=== PATIENT | female | born 2000 | race Caucasian/White ===

== ENCOUNTER 2023-03-26 10:29 | Emergency (ER) | payer OTHER ==
--- OUTSIDE RECORDS SUMMARY | 2023-03-26 10:36 | XMS REPORT | Continuity of Care Document ---
:2000 Author Organization [facility] t Address [address] [facility]. [address] [place] [address] Care Team Providers Name Role Phone Pcp, Patient Does Not Have A Primary Care Physician [id number] Tamika Ramos Attending Clinician Unavailable TAIWO DAVIES Attending Clinician Unavailable Juvenal Garcia Attending Clinician Unavailable Jarrett Barber MD Attending Clinician JARRETT BABRER Attending Clinician Unavailable JARRETT BARBER Attending Clinician Unavailable Doctor Unassigned, [place] Attending Clinician Unavailable GC_GCBZW_[place]_S Attending Clinician Unavailable JORGE PAUL Attending Clinician Unavailable Jean Claude West Attending Clinician GC_GCBZW_[place]_S Admitting Clinician Unavailable Jean Claude West Admitting Clinician Marry Martinez Admitting Clinician Payers Payer Name Policy Type Policy Number Effective Date Expiration Date Augustin mays CIG[employer] [id number] 2022 00:00:00 [facility] [id number] 2022 00:00:00 Problems Condition Condition Condition Status Onset Resolution Last Treating Co mments Source Name Details Category Date Date Treatment Clinician Date STROKE STROKE Diagnosis Active 2022-052023-02-17 Me syed Active 0- 05:47:00 l 02/16/2023 00:00: Roberto FREEMAN [address] NATALIA NATALIA Diagnosis Active 2022-052023-03-25 Memoria BILLING BILLING 0-14 10:59:00 l Active 00:00: [place] 02/16/2023 00 [facility] ACUTE ACUTE Diagnosis Active 2022-052023-02-17 Mem oria MIGRAINE MIGRAINE 0-14 05:47:00 l Active 00:00: [place] 02/16/2023 00 [facility] Migraine Migraine Problem Active 2023-02-21 Memoria (disorder) (disorder) 03:58:24 l Active [place] Problem 02/21/2023 [facility] MIGRAINE, Diagnosis Active 2023-02-17 Memoria UNSP, NOT MIGRAINE, 05:47:00 l INTRACTABL UNSP, NOT Her kruger E, WITHOUT INTRACTABL E, WITHOUT Active [facility] Allergies, Adverse Reactions, Alerts Allergy Allergy Status Severity Reaction(s) Onset Inactive Treating Comm ents Source Name Type Date Date Clinician Latex Propensi Active Rash 2022-05 Univers ty to 05-25 ity of adverse 00:00: [place] reaction Medical to Branch drug LATEX DRUG Active Med Rash 2022-05 Univers INGREDI 05-25 ity of 00:00: [address] NO KNOWN Drug Active Univers ALLERGIE Class ity of S [facility] Social History Social Habit Start Date Stop Date Quantity Comments Source Sexual orientation Univer sity [facility] Tobacco use and 2023-03-25 2023-03-25 Smokeless Universit y of exposure 00:00:00 00:00:00 tobacco non-user [facility] Alcohol intake 2023-03-25 2023-03-25 Ex-drinker University 00:00:00 00:00:00 (finding) [facility] History of Social 2023-03-25 2023-03-25 Univers ity of function 00:00:00 00:00:00 [facility] Sex Assigned At [birth year] Universit y of 00:00:00 00:00:00 [facility] Smoking Status Start Date Stop Date Source Tobacco smoking consumption Univ ersity [facility] Tobacco smoking status [facility] Medications Ordered Filled Start Stop Current Ordering Indication Dosage Frequency Signature Comments Components Source Medication Medication Date Date Medication? Clinician (SIG) Name Name topiramate 2022-05- No Take 1 Univ ers 50 mg 1-20 11-20 tablet ity of tablet 13:44: 00:00 every day [place] 42 :00 by oral Medical route. Branch topiramate 2022-05- No Take 1 Univ ers 50 mg 1-20 11-20 tablet ity of tablet 13:44: 00:00 every day [place] 42 :00 by oral Medical route. Branch rizatriptan 2022-05 Yes 10mg Take 1 Univ ers 10 mg 1-20 tablet by ity of tablet 13:11: mouth as [place] 04 needed for Medical Migraine. Branch May repeat in 2 hours if needed rizatriptan 2022-05 Yes 10mg Take 1 Univ ers 10 mg 1-20 tablet by ity of tablet 13:11: mouth as [place] 04 needed for Medical Migraine. Branch May repeat in 2 hours if needed topiramate 2022-05 Yes [id number] 100mg Take 2 Univers 50 mg 1-20 tablets by ity of tablet 00:00: mouth in [place] 00 the Medical morning Branch and 2 tablets in the evening. topiramate 2022-05 Yes [id number] 100mg Take 2 Univers 50 mg 1-20 tablets by ity of tablet 00:00: mouth in [place] 00 the Medical morning Branch and 2 tablets in the evening. topiramate 2022-05 Yes 50 mg = 1 Me moria 50 mg oral 0-16 tab, PO, l tablet 20:29: BID, # 60 Roberto n 00 tab, 1 Refill(s), Pharmacy: [id number], 170.18, cm, 02/17/23 18:24:00 CDT, Height, 132.273, kg, 02/17/23 18:24:00 CDT, Weight Occupationa 2022-05 Yes See Memori a l Therapy 0-16 Instructio l 20:19: ns, MISC, [place] 00 ONCALL, Evaluate and Treat as needed for complicate d migraine G43.3 Jean Claude BURNS [id number] , # 1 ea, 0 Refill(s) Physical 2022-05 Yes See Memoria Therapy 0-16 Instructio l 18:30: ns, MISC, [place] 00 ONCALL, Evaluate and Treat as needed for seizures. G40.89 Jean Claude BURNS [id number] , # 1 ea, 0 Refill(s) normal 2022-05 Yes 1,000 mL, Memori a saline 0.9% 0-16 1,000 l (Bolus) IV 14:27: ml/hr, Jannet nn 00 Infuse Over: 1 hr, Route: IV, 1,000, Drug form: INJ, ONCE, Priority: STAT, Dosing Weight 132.273 kg, Start date: 02/18/23 9:27:00 CDT, Stop date: 02/18/23 9:27:00 CDT, 0 valproic 2022-05 Yes 500 mg, Memori a acid 100 0-16 Route: IV, l mg/mL 14:27: ONCE, Bandar intravenous 00 Dosing solution Weight 132.273, kg, Start date: 02/18/23 9:27:00 CDT, Stop date: 02/18/23 9:27:00 CDT Compazine 2022-05 No 10 mg, Memori a 0-16 Route: PO, l 14:17: Drug form: TAB, TID, Dosing Weight 132.273, kg, PRN Nausea & Vomiting, Start date: 02/18/23 9:17:00 CDT, Duration: 30 day, Stop date: 03/20/23 9:16:00 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 (Same As: Topamax) Bentyl 2022-05 No Notes: Memoria 0-16 (Same as: l 05:35: Bentyl) Solu-MEDROL 2022-05 No Notes: Jerad carina + Sodium 0-16 (Same l Chloride 00:41: as:Solu-ME Her kruger 0.9% IV 100 00 DROL, mL A-Methapre d) MEDICATION WASTE Product Size: 500 mg Product Wasted: ___ mg busPIRone 2022-05 Yes Notes: Memori a 0-15 (Same As: l 22:00: BuSpar) cefTRIAXone 2022-05 No 1 gm, Memor ia 0-15 Route: l 16:00: IVPB, Drug [place] 00 form: PDR/INJ, [id number], Dosing Weight 65.727, kg, Start date: 02/17/23 11:00:00 CDT, Duration: 3 day, Stop date: 02/19/23 11:00:00 CDT, UTI, SSTI, CAP, ABX Indication : Urinary Tract Infection valproic 2022-05 No Notes: Memoria acid 100 0-15 Dilute in l mg/mL 14:34: at least [place] intravenous 00 50ml D5W solution + or NS. Sodium Infusion Chloride rate = 20 0.9% IV 50 mg/min mL (Same As: Depacon) Hazardous Drug Group 3:Reproduc tive risk Hazardous Drug -- Refer to safe handling procedure PPE Matrix normal 2022-05 No 1,000 mL, Memori a saline 0.9% 0-15 1,000 l (Bolus) IV 14:33: ml/hr, Jannet nn 00 Infuse Over: 1 hr, Route: IV, 1,000, Drug form: INJ, ONCE, Priority: STAT, Dosing Weight 65.727 kg, Start date: 02/17/23 9:33:00 CDT, Stop date: 02/17/23 9:33:00 CDT, 0 docusate 2022-05 Yes Notes: Memoria sodium 0-15 (Same as: l 14:00: Colace) [place] (Do Not Crush) heparin 2022-05 Yes Notes: Memoria 0-15 porcine l 13:00: heparin [place] 00 normal 2022-05 No 1,000 mL, Memori a saline 0.9% 0-15 Route: IV, l (Bolus) IV 11:52: ONCE, Roberto n 00 Dosing Weight 65.727 kg, Start date: 02/17/23 6:52:00 CDT, Stop date: 02/17/23 6:52:00 CDT magnesium 2022-05 No Notes: Memori a sulfate 0-15 WASTE: F/P l 10:44: - Sink; E Bandar 00 - [facility] Trash Bin acetaminoph 2022-05 Yes Notes: Do M emoria en 0-15 not exceed l 10:44: 4 gm/day. [place] (Same as: Tylenol) ketOROLAC 2022-05 No 4 days Memor ia 0-15 l 10:44: MEDICATION Band[place] 00 WASTE Product Size: 30 mg Product Wasted: ___ mg diphenhydrA 2022-05 No Notes: Jerad carina MINE 0-15 (Same as: l 10:44: Benadryl) Band[place] 00 Nurtec ODT 2022-05 Yes 75 mg = 1 Me moria 75 mg oral 0-15 tab, PO, l tablet, 08:12: ONCE, 0 Bandar disintegrat 00 Refill(s) ing busPIRone 2022-05 Yes 10 mg = 1 Mem oria 10 mg oral 0-15 tab, PO, l tablet 08:12: BID, 0 [place] 00 Refill(s) Trintellix 2022-05 Yes 10 mg = 1 Me moria 10 mg oral 0-15 tab, PO, l tablet 08:12: Daily, 0 [place] 00 Refill(s) Saxenda 18 2022-05 Yes 1.2 mg, Jerad carina mg/3 mL 0-15 SUB-Q, l subcutaneou 08:11: Daily, 0 He rmann s solution 00 Refill(s) Onzetra 2022-05 Yes 2 Memoria Xsail 11 mg 0-15 nosepieces l nasal 08:11: , NASAL, Bandar capsule 00 PRN, 0 Refill(s), Administer 2 nosepieces ( 1 per nostril) at onset for migraine, may repeat dose after 2 hours prn metoclopram 2022-05 No Notes: Jerad carina bijan 0-15 (Same as: l 04:52: Reglan) [place] acetaminoph 2022-05 No Notes: Do M emoria en 0-15 not exceed l 04:52: 4 gm/day. Bandar 00 (Same as: Tylenol) magnesium 2022-05 No Notes: Memori a sulfate 2 0-15 WASTE: F/P l gm in Water 04:51: - Sink; E H ermann 50 ml 00 - Municipal Trash Bin Benadryl 2022-05 No Notes: Memoria 0-15 (Same as: l 04:51: Benadryl) Band[place] 00 ketOROLAC 2022-05 No 4 days Memor ia 0-15 l 04:50: MEDICATION Band[place] 00 WASTE Product Size: 30 mg Product Wasted: ___ mg Omnipaque 2022-05 No 100 mL, Memor ia 350 mg/mL 0-15 Route: l 02:22: IVP, Drug [place] 00 Form: SOLN, kg, ONCALL, STAT, Start date: 02/16/23 21:22:00 CDT, Duration: 1 doses or times, Dose = 2.2ml/kg, Max dose = 100ml -- "To be infused by Radiology Staff ONLY" Saline 2022-05 Yes Notes: Memoria Flush 0.9% 0-15 Same as: l 02:17: BD [place] 00 Posiflush Sterile Vital Signs Vital Name Observation Time Observation Value Comments Source Systolic blood 2023-03-25 19:07:00 114 mm[Hg] Univer sity of pressure [facility] Diastolic blood 2023-03-25 19:07:00 83 mm[Hg] Unive rsity of [facility] Heart rate 2023-03-25 19:07:00 86 /min [facility] Body height 2023-03-25 19:07:00 167.6 cm [facility] Body weight 2023-03-25 19:07:00 141.341 kg [facility] BMI 2023-03-25 19:07:00 50.29 kg/m2 [facility] Oxygen saturation in 2023-03-25 19:07:00 99 /min [facility] Arterial blood by [facility] Pulse oximetry Branch Heart Rate 2023-02-18 22:52:09 [facility] Temperature Oral (F) 2023-02-18 22:51:40 99.3 F [facility] [place] Systolic (mm Hg) 2023-02-18 22:51:31 Jerad rial [place] Diastolic (mm Hg) 2023-02-18 22:51:31 Mem orial [place] Height 2023-02-18 19:22:00 5 [ft_i] [facility] [place] Weight 2023-02-18 19:22:00 [facility]23[facility]18 12:18[facility]04 [facility] Resp[facility] Rate 2023-02-18 12:18:04 Memori al [place] Systolic (mm Hg) 2023-02-18 12:17:34 Jerad rial [place] Diastolic (mm Hg) 2023-02-18 12:17:34 Mem orial [place] Heart Rate 2023-02-18 12:17:34 [facility] [place] Temperature Oral (F) 2023-02-18 12:17:15 97.7 F [facility] [place] Heart Rate 2023-02-18 04:38:57 [facility] [place] Respitory Rate 2023-02-18 04:38:57 Memori al [place] Systolic (mm Hg) 2023-02-18 04:38:52 Jerad rial [place] Diastolic (mm Hg) 2023-02-18 04:38:52 Mem orial [place] Respitory Rate 2023-02-18 00:43:38 Memori al [place] Temperature Oral (F) 2023-02-18 00:43:35 98.6 F [facility] [place] Systolic (mm Hg) 2023-02-18 00:43:12 Jerad rial [place] Diastolic (mm Hg) 2023-02-18 00:43:12 Mem orial [place] Temperature Oral (F) 2023-02-17 21:33:00 98.1 F [facility] [place] Height 2023-02-17 10:47:00 170.18 cm [facility] [place] Weight 2023-02-17 10:47:00 [facility] [place] BMI Calculated 2023-02-17 10:47:00 Memori al [place] Height 2023-02-17 03:34:00 165.1 cm Memorial [place] BMI Calculated 2023-02-17 03:34:00 Memori al [place] Weight 2023-02-17 03:34:00 [facility] [place] Height 2023-02-17 02:05:00 165.1 cm [facility] [place] BMI Calculated 2023-02-17 02:05:00 Memori al [place] Weight 2023-02-17 02:05:00 [facility] Procedures Procedure Date / Time Performing Clinician Source Performed CONSENT/REFUSAL FOR 2023-03-25 18:53:05 Doctor Unassigned, No [facility] DIAGNOSIS AND TREATMENT Name Medical Branch ASSIGNMENT OF BENEFITS 2023-03-25 18:52:39 Doctor Unassigned, No [facility] Operation on tonsils [facility] He rmann Arthroscopy of knee Memorial Her kruger Extraction of wisdom [facility] He rmann tooth Encounters Start End Encounter Admission Attending Care Care Encounter Source Date/Time Date/Time Type Type Clinicians Facility Department ID 2023-02-26 Outpatient LOUIS Ramos [facility] [id number] Common 10:44:01 Tamika [id number] [facility] 2023-06-20 2023-06-20 Outpatient DAVIES [facility] [id number] [place] 13:00:00 13:00:00 TAIWO [facility] 2023-04-04 2023-04-04 Outpatient TORRI GarciaCOX BRANSON [id number] [facility] 11:00:00 11:00:00 Juvenal 88 [facility] 2023-03-25 2023-03-25 Office Sunil [facility] [id number] [facility] 13:00:00 13:48:04 Visit [facility] [id number] ity [facility] [id number] Todd as BRITTANI?BLEA [id number] [address] MEDICAL OFFICE BUILDING 2023-03-25 2023-03-25 Outpatient JARRETT GALLO [facility] [id number] Univers 13:00:00 13:48:04 [facility] 2023-03-25 Orders Doctor DUONG [id number] Univers 00:00:00 00:00:00 Only Unassigned, HENRRY [id number] [facility] [id number] Todd as [id number] [address] 2023-03-19 2023-03-19 Outpatient GC_GCBZW_Ka PRIV PRIV [id number] [facility] 00:00:00 00:00:00 diyala_S [id number] Medic al 2023-03-18 2023-03-18 Outpatient GC_GCBZW_Ka PRIV PRIV [id number] [facility] 00:00:00 00:00:00 diyala_S [id number] Medic al 2023-03-11 2023-03-11 Outpatient HUMBERTO, [facility] [id number] [place] 13:30:00 13:30:00 [facility] 2023-03-08 2023-03-08 Outpatient GC_GCBZW_Ka PRIV PRIV [id number] [facility] 00:00:00 00:00:00 diyala_S [id number] Medic al 2023-03-01 2023-03-01 Outpatient GC_GCBZW_Ka PRIV PRIV [id number] [facility] 00:00:00 00:00:00 diyala_S [id number] Medic al 2023-02-17 [id number] Memoria 02:05:00 23:38:00 francesco Portillo [address] [place] [address] 2023-02-16 2023-02-[address] [facility] [id number] 21:05:00 18:38:00 Jean Claude Masters 2023-02-16 2023-02-[address] [facility] [id number] 21:05:00 21:05:00 Jean Claude Masters Results Test Description Test Time Test Comments Results Result Comments Source CARDIAC ENZYMES 2023-02-17 21:14:00 Test Item Value Reference Range Interpretation Comme nts HS Troponin I 1 Hr (test code = HS Troponin I 1 Hr) 4 [facility] Limited[facility] [id number] 21:14:00 Test Item Value Reference Range Interpretation Comments HS Troponin I 0 to 1 Hour Delta (test 0 1 code = HS Troponin I 0 to 1 Hour Delta) [id number] 21:14:00 Test Item Value Reference Range Interpretation Comments HS Troponin I 1 Hr (test code = HS 4 Troponin I 1 Hr) [facility] [id number] 21:14:00 Test Item Value Reference Range Interpretation Comments HS Troponin I 0 to 1 Hour Delta (test 0 1 code = HS Troponin I 0 to 1 Hour Delta) [facility] LimitedAC [id number] 19:43:00 Test Item Value Reference Range Interpretation Comments HS Troponin I Baseline (test code = HS 4 Troponin I Baseline) [facility] [id number] 19:43:00 Test Item Value Reference Range Interpretation Comments HS Troponin I Baseline (test code = HS 4 Troponin I Baseline) [facility] [id number] 15:22:00 Test Item Value Reference Range Interpretation Comments Culture: Urine (test 50,000 - 100,000 code = Culture: Urine) CFU/mL Skin Quyen [facility] [id number] 14:26:00 Test Item Value Reference Range Interpretation Comments U Amph Scr (test code Negative *NA*(02/17/23 = U Amph Scr) 9:26 AM) [facility] [id number] 14:26:00 Test Item Value Reference Range Interpretation Comments U Antonia Scr (test code Negative *NA*(02/17/23 = U Antonia Scr) 9:26 AM) [facility] [id number] 14:26:00 Test Item Value Reference Range Interpretation Comments U Benzodiaz Scr (test Negative *NA*(02/17/23 code = U Benzodiaz Scr) 9:26 AM) [facility] [id number] 14:26:00 Test Item Value Reference Range Interpretation Comments U Cocaine Scr (test Negative *NA*(02/17/23 code = U Cocaine Scr) 9:26 AM) [facility] [id number] 14:26:00 Test Item Value Reference Range Interpretation Comments U Cannab Scr (test Positive *ABN*(02/17/23 code = U Cannab Scr) 9:26 AM) [facility] [id number] 14:26:00 Test Item Value Reference Range Interpretation Comments U Opiate Scr (test Negative *NA*(02/17/23 code = U Opiate Scr) 9:26 AM) [facility] [id number] 14:26:00 Test Item Value Reference Range Interpretation Comments U Phencyclidine Scr (test Negative code = U Phencyclidine *NA*(02/17/23 9:26 Scr) AM) [facility] [id number] 14:26:00 Test Item Value Reference Range Interpretation Comments UDS Note (test code = See Note 3(02/17/23 UDS Note) 9:26 AM) [facility] [id number] 14:26:00 Test Item Value Reference Range Interpretation Comments U Amph Scr (test code Negative *NA*(02/17/23 = U Amph Scr) 9:26 AM) [facility] [id number] 14:26:00 Test Item Value Reference Range Interpretation Comments U Antonia Scr (test code Negative *NA*(02/17/23 = U Antonia Scr) 9:26 AM) [facility] [id number] 14:26:00 Test Item Value Reference Range Interpretation Comments U Benzodiaz Scr (test Negative *NA*(02/17/23 code = U Benzodiaz Scr) 9:26 AM) [facility] [id number] 14:26:00 Test Item Value Reference Range Interpretation Comments U Cocaine Scr (test Negative *NA*(02/17/23 code = U Cocaine Scr) 9:26 AM) [facility] [id number] 14:26:00 Test Item Value Reference Range Interpretation Comments U Cannab Scr (test Positive *ABN*(02/17/23 code = U Cannab Scr) 9:26 AM) [facility] [id number] 14:26:00 Test Item Value Reference Range Interpretation Comments U Opiate Scr (test Negative *NA*(02/17/23 code = U Opiate Scr) 9:26 AM) [facility] [id number] 14:26:00 Test Item Value Reference Range Interpretation Comments U Phencyclidine Scr (test Negative code = U Phencyclidine *NA*(02/17/23 9:26 Scr) AM) [facility] [id number] 14:26:00 Test Item Value Reference Range Interpretation Comments UDS Note (test code = See Note 3(02/17/23 UDS Note) 9:26 AM) [facility] [id number] 14:26:00 Test Item Value Reference Range Interpretation Comments UA Color (test code = Puja *ABN*(02/17/23 UA Color) 9:26 AM) [facility] [id number] 14:26:00 Test Item Value Reference Range Interpretation Comments UA Turbidity (test code Marked *ABN*(02/17/23 = UA Turbidity) 9:26 AM) [facility] [id number] 14:26:00 Test Item Value Reference Range Interpretation Comments UA Spec Grav (test code = UA Spec Grav) no gt [facility] [id number] 14:26:00 Test Item Value Reference Range Interpretation Comments UA pH (test code = UA pH) 5.0 1 5.0-8.0 [facility] [id number] 14:26:00 Test Item Value Reference Range Interpretation Comments UA Protein (test code = UA Protein) 30 mg/dL [facility] [id number] 14:26:00 Test Item Value Reference Range Interpretation Comments UA Glucose (test code = UA Negative mg/dL Glucose) [facility] [id number] 14:26:00 Test Item Value Reference Range Interpretation Comments UA Ketones (test code = UA Ketones) 80 mg/dL [facility] [id number] 14:26:00 Test Item Value Reference Range Interpretation Comments UA Bili (test code = Negative *NA*(02/17/23 UA Bili) 9:26 AM) [facility] AND [id number] 14:26:00 Test Item Value Reference Range Interpretation Comments UA Blood (test code = Small *ABN*(02/17/23 UA Blood) 9:26 AM) [facility] AND [id number] 14:26:00 Test Item Value Reference Range Interpretation Comments UA Nitrite (test code Negative (02/17/23 9:26 = UA Nitrite) AM) [facility] AND [id number] 14:26:00 Test Item Value Reference Range Interpretation Comments UA Leuk Est (test Negative (02/17/23 9:26 code = UA Leuk Est) AM) [facility] AND [id number] 14:26:00 Test Item Value Reference Range Interpretation Comments UA Ascorbic Acid (test Negative code = UA Ascorbic 8*NA*(02/17/23 9:26 Acid) AM) [facility] AND [id number] 14:26:00 Test Item Value Reference Range Interpretation Comments UA Sq Epi (test code = UA Sq Epi) Many /LPF [facility] AND [id number] 14:26:00 Test Item Value Reference Range Interpretation Comments UA WBC (test code = UA WBC) 16 <=5 [facility] AND [id number] 14:26:00 Test Item Value Reference Range Interpretation Comments UA RBC (test code = UA RBC) 24 <=2 [facility] [id number] 14:26:00 Test Item Value Reference Range Interpretation Comments UA Bacteria (test code = UA Occasional /HPF Bacteria) [facility] [id number] 14:26:00 Test Item Value Reference Range Interpretation Comments UA Mucus (test code = UA Mucus) Moderate /LPF [facility] [id number] 14:26:00 Test Item Value Reference Range Interpretation Comments UA [place] Yeast (test code = UA [place] Few /HPF Yeast) [facility] [id number] 14:26:00 Test Item Value Reference Range Interpretation Comments UA Urobilinogen (test code = UA <=1.0 mg/dL 0.1-1.0 Urobilinogen) [facility] [id number] 14:26:00 Test Item Value Reference Range Interpretation Comments UA Color (test code = Puja *ABN*(02/17/23 UA Color) 9:26 AM) [facility] [id number] 14:26:00 Test Item Value Reference Range Interpretation Comments UA Turbidity (test code Marked *ABN*(02/17/23 = UA Turbidity) 9:26 AM) [facility] [id number] 14:26:00 Test Item Value Reference Range Interpretation Comments UA Spec Grav (test code = UA Spec Grav) no gt [facility] [id number] 14:26:00 Test Item Value Reference Range Interpretation Comments UA pH (test code = UA pH) 5.0 1 5.0-8.0 [facility] [id number] 14:26:00 Test Item Value Reference Range Interpretation Comments UA Protein (test code = UA Protein) 30 mg/dL [facility] [id number] 14:26:00 Test Item Value Reference Range Interpretation Comments UA Glucose (test code = UA Negative mg/dL Glucose) [facility] [id number] 14:26:00 Test Item Value Reference Range Interpretation Comments UA Ketones (test code = UA Ketones) 80 mg/dL [facility] [id number] 14:26:00 Test Item Value Reference Range Interpretation Comments UA Bili (test code = Negative *NA*(02/17/23 UA Bili) 9:26 AM) [facility] [id number] 14:26:00 Test Item Value Reference Range Interpretation Comments UA Blood (test code = Small *ABN*(02/17/23 UA Blood) 9:26 AM) [facility] [id number] 14:26:00 Test Item Value Reference Range Interpretation Comments UA Nitrite (test code Negative (02/17/23 9:26 = UA Nitrite) AM) [facility] [id number] 14:26:00 Test Item Value Reference Range Interpretation Comments UA Leuk Est (test Negative (02/17/23 9:26 code = UA Leuk Est) AM) [facility] [id number] 14:26:00 Test Item Value Reference Range Interpretation Comments UA Ascorbic Acid (test Negative code = UA Ascorbic 7*NA*(02/17/23 9:26 Acid) AM) [facility] [id number] 14:26:00 Test Item Value Reference Range Interpretation Comments UA Sq Epi (test code = UA Sq Epi) Many /LPF [facility] [id number] 14:26:00 Test Item Value Reference Range Interpretation Comments UA WBC (test code = UA WBC) 16 <=5 [facility] [id number] 14:26:00 Test Item Value Reference Range Interpretation Comments UA RBC (test code = UA RBC) 24 <=2 [facility] [id number] 14:26:00 Test Item Value Reference Range Interpretation Comments UA Bacteria (test code = UA Occasional /HPF Bacteria) [facility] [id number] 14:26:00 Test Item Value Reference Range Interpretation Comments UA Mucus (test code = UA Mucus) Moderate /LPF [facility] [id number] 14:26:00 Test Item Value Reference Range Interpretation Comments UA [place] Yeast (test code = UA [place] Few /HPF Yeast) [facility] [id number] 14:26:00 Test Item Value Reference Range Interpretation Comments UA Urobilinogen (test code = UA <=1.0 mg/dL 0.1-1.0 Urobilinogen) [facility] BvmjkhxRQPVNT8367-76-05 12:54:22 Test Item Value Reference Range Interpretation Comments RADRPT (test code = EXAM: MRI BRAIN WITH AND RADRPT) WITHOUT CONTRASTDATE: 02/17/2023INDICATION: - abnormal CT head.COMPARISON: CT of the head 02/16/2023.TECHNIQUE: Multiplanar, multisequence MRI of the brain with and without contrast. IV contrast: Refer to technologist infectious disease documentationNote: No contrast is visualized on postcontrast images.FINDINGS:There is no mass lesion, signal change, or structural abnormality. The hypodensity described inferior to the left lentiform nucleus likely corresponds to enlarged perivascular spaces in this region. There is no abnormally restricted diffusion or hemorrhage.The ventricles and extra-axial spaces are normal. The intracranial arterial and venous structures demonstrate normal flow voids.The included paranasal sinuses and skull base are unremarkable. IMPRESSION: Normal MRI of the brain without contrast. [facility]kkurpxOOJXYJVNZD6345-00-89 11:30:00 Test Item Value Reference Range Interpretation Comments Hct (test code = Hct) 37.8 36.0-48.0 [place] 369573-10-15 11:30:00 Test Item Value Reference Range Interpretation Comments MCV (test code = MCV) 81.5 80.0-98.0 [place] 369573-10-15 11:30:00 Test Item Value Reference Range Interpretation Comments MCH (test code = MCH) 27.1 pg 27.0-31.0 [place] 369573-10-15 11:30:00 Test Item Value Reference Range Interpretation Comments MCHC (test code = MCHC) 33.3 32.0-36.0 [place] 369573-10-15 11:30:00 Test Item Value Reference Range Interpretation Comments RDW (test code = RDW) 14.1 11.5-14.5 [place] [address]-10-15 11:30:00 Test Item Value Reference Range Interpretation Comments Platelet (test code = Platelet) 279 133-450 [facility] HospitalMriklwtAQMQGBVPMK8091-40-34 11:30:00 Test Item Value Reference Range Interpretation Comments MPV (test code = MPV) 7.0 7.4-10.4 [place] [address]-10-15 11:30:00 Test Item Value Reference Range Interpretation Comments Segs (test code = Segs) 52.2 45.0-75.0 [place] [address]-10-15 11:30:00 Test Item Value Reference Range Interpretation Comments Lymphocytes (test code = Lymphocytes) 37.1 20.0-40.0 [place] [address]-10-15 11:30:00 Test Item Value Reference Range Interpretation Comments Monocytes (test code = Monocytes) 8.0 2.0-12.0 [place] [address]-10-15 11:30:00 Test Item Value Reference Range Interpretation Comments Eosinophils (test code = Eosinophils) 1.4 <=4.0 [place] [address]-10-15 11:30:00 Test Item Value Reference Range Interpretation Comments Basophils (test code = Basophils) 1.3 <=1.0 [place] [address]-10-15 11:30:00 Test Item Value Reference Range Interpretation Comments Neutrophils # (test code = Neutrophils 3.9 1.5-8.1 #) [place] [address]-10-15 11:30:00 Test Item Value Reference Range Interpretation Comments Lymphocytes # (test code = Lymphocytes 2.8 1.0-5.5 #) [place] [address]-10-15 11:30:00 Test Item Value Reference Range Interpretation Comments Monocytes # (test code = Monocytes #) 0.6 <=0.8 [place] [address]-10-15 11:30:00 Test Item Value Reference Range Interpretation Comments Eosinophils # (test code = Eosinophils 0.1 <=0.5 #) [place] [address]-10-15 11:30:00 Test Item Value Reference Range Interpretation Comments Basophils # (test code = Basophils #) 0.1 <=0.2 [place] [address]-10-15 11:30:00 Test Item Value Reference Range Interpretation Comments WBC X 10x3 (test code = WBC X 10x3) 7.5 3.7-10.4 [place] [address]-10-15 11:30:00 Test Item Value Reference Range Interpretation Comments RBC X 10x6 (test code = RBC X 10x6) 4.63 4.20-5.40 [place] [address]-10-15 11:30:00 Test Item Value Reference Range Interpretation Comments Hgb (test code = Hgb) 12.6 12.0-16.0 [place] [address]-10-15 11:30:00 Test Item Value Reference Range Interpretation Comments Hct (test code = Hct) 37.8 36.0-48.0 [place] [address]-10-15 11:30:00 Test Item Value Reference Range Interpretation Comments MCV (test code = MCV) 81.5 80.0-98.0 [place] [address]-10-15 11:30:00 Test Item Value Reference Range Interpretation Comments MCH (test code = MCH) 27.1 pg 27.0-31.0 [place] [address]-10-15 11:30:00 Test Item Value Reference Range Interpretation Comments MCHC (test code = MCHC) 33.3 32.0-36.0 [place] 369573-10-15 11:30:00 Test Item Value Reference Range Interpretation Comments RDW (test code = RDW) 14.1 11.5-14.5 [place] [address]-10-15 11:30:00 Test Item Value Reference Range Interpretation Comments Platelet (test code = Platelet) 279 133-450 [facility] HospitalUejkvnlSNKFUQFHWU7065-10-82 11:30:00 Test Item Value Reference Range Interpretation Comments MPV (test code = MPV) 7.0 7.4-10.4 [place] [address]-10-15 11:30:00 Test Item Value Reference Range Interpretation Comments Segs (test code = Segs) 52.2 45.0-75.0 [place] 369573-10-15 11:30:00 Test Item Value Reference Range Interpretation Comments Lymphocytes (test code = Lymphocytes) 37.1 20.0-40.0 [place] [address]-10-15 11:30:00 Test Item Value Reference Range Interpretation Comments Monocytes (test code = Monocytes) 8.0 2.0-12.0 [place] [address]-10-15 11:30:00 Test Item Value Reference Range Interpretation Comments Eosinophils (test code = Eosinophils) 1.4 <=4.0 [place] [address]-10-15 11:30:00 Test Item Value Reference Range Interpretation Comments Basophils (test code = Basophils) 1.3 <=1.0 [place] [address]-10-15 11:30:00 Test Item Value Reference Range Interpretation Comments Neutrophils # (test code = Neutrophils 3.9 1.5-8.1 #) [place] [address]-10-15 11:30:00 Test Item Value Reference Range Interpretation Comments Lymphocytes # (test code = Lymphocytes 2.8 1.0-5.5 #) [place] [address]-10-15 11:30:00 Test Item Value Reference Range Interpretation Comments Monocytes # (test code = Monocytes #) 0.6 <=0.8 [place] [address]-10-15 11:30:00 Test Item Value Reference Range Interpretation Comments Eosinophils # (test code = Eosinophils 0.1 <=0.5 #) [place] [address]-10-15 11:30:00 Test Item Value Reference Range Interpretation Comments Basophils # (test code = Basophils #) 0.1 <=0.2 [place] [address]-10-15 11:30:00 Test Item Value Reference Range Interpretation Comments Glucose Lvl (test code = Glucose Lvl) 92 70-99 [place] [address]-10-15 11:30:00 Test Item Value Reference Range Interpretation Comments BUN (test code = BUN) 10 7-22 [place] [address]-10-15 11:30:00 Test Item Value Reference Range Interpretation Comments Creatinine Lvl (test code = Creatinine 0.63 0.50-1.40 Lvl) [place] 277193-10-15 11:30:00 Test Item Value Reference Range Interpretation Comments Sodium Lvl (test code = Sodium Lvl) 144 135-145 [place] 277193-10-15 11:30:00 Test Item Value Reference Range Interpretation Comments Potassium Lvl (test code = Potassium 3.6 3.5-5.1 Lvl) [place] [address]-10-15 11:30:00 Test Item Value Reference Range Interpretation Comments Chloride Lvl (test code = Chloride Lvl) 108 95-109 [place] 277193-10-15 11:30:00 Test Item Value Reference Range Interpretation Comments CO2 (test code = CO2) 24 24-32 [place] [address]-10-15 11:30:00 Test Item Value Reference Range Interpretation Comments Calcium Lvl (test code = Calcium Lvl) 9.1 8.5-10.5 [place] [address]-10-15 11:30:00 Test Item Value Reference Range Interpretation Comments Total Protein (test code = Total 6.9 6.4-8.4 Protein) [place] 277193-10-15 11:30:00 Test Item Value Reference Range Interpretation Comments Albumin Lvl (test code = Albumin Lvl) 3.5 3.5-5.0 [place] 277193-10-15 11:30:00 Test Item Value Reference Range Interpretation Comments ALANINE AMINOTRANSFERASE (test code = 24 <=65 ALANINE AMINOTRANSFERASE) [place] [address]-10-15 11:30:00 Test Item Value Reference Range Interpretation Comments AST (test code = AST) 13 <=37 [place] [address]-10-15 11:30:00 Test Item Value Reference Range Interpretation Comments Alk Phos (test code = Alk Phos) 74 39-136 [place] 277193-10-15 11:30:00 Test Item Value Reference Range Interpretation Comments Bili Total (test code = Bili Total) 0.7 0.2-1.3 [place] 277193-10-15 11:30:00 Test Item Value Reference Range Interpretation Comments AGAP (test code = AGAP) 15.6 10.0-20.0 [place] 277193-10-15 11:30:00 Test Item Value Reference Range Interpretation Comments B/C Ratio (test code = B/C Ratio) 16 1 6-25 [place] 277193-10-15 11:30:00 Test Item Value Reference Range Interpretation Comments Globulin (test code = Globulin) 3.4 2.7-4.2 [place] 277193-10-15 11:30:00 Test Item Value Reference Range Interpretation Comments A/G Ratio (test code = A/G Ratio) 1.0 1 0.7-1.6 [place] 277193-10-15 11:30:00 Test Item Value Reference Range Interpretation Comments eGFR (test code = eGFR) 129 [place] [address]-10-15 11:30:00 Test Item Value Reference Range Interpretation Comments Glucose Lvl (test code = Glucose Lvl) 92 70-99 [place] 281843-10-15 11:30:00 Test Item Value Reference Range Interpretation Comments BUN (test code = BUN) 10 7-22 [facility]RkoroakTFRLBNCZC6278-89-80 11:30:00 Test Item Value Reference Range Interpretation Comments Creatinine Lvl (test code = Creatinine 0.63 0.50-1.40 Lvl) [facility] NorthwestFtfswzqJCEZWHMDY0655-74-92 11:30:00 Test Item Value Reference Range Interpretation Comments Sodium Lvl (test code = Sodium Lvl) 144 135-145 [facility] NorthwestLbhfmcdXMCROVJXQ1165-55-28 11:30:00 Test Item Value Reference Range Interpretation Comments Potassium Lvl (test code = Potassium 3.6 3.5-5.1 Lvl) [facility] NorthwestHlnxbbbYKFDBYDJL0954-22-72 11:30:00 Test Item Value Reference Range Interpretation Comments Chloride Lvl (test code = Chloride Lvl) 108 95-109 [facility] NorthwestTcmpunmJFIFDVCTD0858-38-65 11:30:00 Test Item Value Reference Range Interpretation Comments CO2 (test code = CO2) 24 24-32 [facility] NorthwestRirnaxfAXZAGKKBZ2494-23-34 11:30:00 Test Item Value Reference Range Interpretation Comments Calcium Lvl (test code = Calcium Lvl) 9.1 8.5-10.5 [facility] NorthwestJrnpbeeDTGHTZDVM7215-71-55 11:30:00 Test Item Value Reference Range Interpretation Comments Total Protein (test code = Total 6.9 6.4-8.4 Protein) [facility] NorthwestQvfyvlgNSGITGTEM4380-35-06 11:30:00 Test Item Value Reference Range Interpretation Comments Albumin Lvl (test code = Albumin Lvl) 3.5 3.5-5.0 [facility] NorthwestNbycpmhLUYODIXBJ2302-72-45 11:30:00 Test Item Value Reference Range Interpretation Comments ALANINE AMINOTRANSFERASE (test code = 24 <=65 ALANINE AMINOTRANSFERASE) [facility] NorthwestWtignbgIYTSZUQJQ8415-49-22 11:30:00 Test Item Value Reference Range Interpretation Comments AST (test code = AST) 13 <=37 [facility] NorthwestAuimtpbXMFROLVGD2124-23-16 11:30:00 Test Item Value Reference Range Interpretation Comments Alk Phos (test code = Alk Phos) 74 39-136 [facility] NorthwestVwhoihdBQTNGKBRS1964-91-28 11:30:00 Test Item Value Reference Range Interpretation Comments Bili Total (test code = Bili Total) 0.7 0.2-1.3 [facility] NorthwestJrzawoyVMBWJRJCN1318-91-26 11:30:00 Test Item Value Reference Range Interpretation Comments AGAP (test code = AGAP) 15.6 10.0-20.0 [facility] NorthwestEmjcvezYXNOIWVWE3630-75-75 11:30:00 Test Item Value Reference Range Interpretation Comments B/C Ratio (test code = B/C Ratio) 16 1 6-25 [facility] NorthwestJzzvhxaXUVGZKZUV7184-21-45 11:30:00 Test Item Value Reference Range Interpretation Comments Globulin (test code = Globulin) 3.4 2.7-4.2 [facility] NorthwestLpggxwmMPFEUTGGX3731-56-86 11:30:00 Test Item Value Reference Range Interpretation Comments A/G Ratio (test code = A/G Ratio) 1.0 1 0.7-1.6 [facility] NorthwestVrgqkdlXIIKGYXGK8463-78-89 11:30:00 Test Item Value Reference Range Interpretation Comments eGFR (test code = eGFR) 129 [facility]DpdvjvoYKMJVLCRLW5514-19-17 11:30:00 Test Item Value Reference Range Interpretation Comments WBC X 10x3 (test code = WBC X 10x3) 7.5 3.7-10.4 [facility] HospitalCpuvdmjUVGKVNQSPH2847-74-00 11:30:00 Test Item Value Reference Range Interpretation Comments RBC X 10x6 (test code = RBC X 10x6) 4.63 4.20-5.40 [facility] HospitalYilqnevNHOWUKLNQW2019-84-44 11:30:00 Test Item Value Reference Range Interpretation Comments Hgb (test code = Hgb) 12.6 12.0-16.0 [facility]MefiajiJFOFOXXPJE4824-68-93 11:22:00 Test Item Value Reference Range Interpretation Comments Coronavirus (COVID-19) Not Detected MOHSEN (test code = 9(02/17/23 6:22 AM) Coronavirus (COVID-19) MOHSEN) [facility] HospitalTydmgreQUAYTDYRLA8384-53-56 11:22:00 Test Item Value Reference Range Interpretation Comments Coronavirus (COVID-19) Not Detected MOHSEN (test code = 8(02/17/23 6:22 AM) Coronavirus (COVID-19) MOHSEN) [place] [id number] 10:30:00 Test Item Value Reference Range Interpretation Comments RADRPT (test code = EXAM: XR CHEST 1 RADRPT) VIEWDATE: 02/17/2023 1:09 INDICATION: - R sided weakness/numbnessCOMPARIS ON: None.TECHNIQUE: AP chest.FINDINGS:Electrocar diogram leads cross over the thorax.Lines, tubes and hardware: None.Lungs and pleura: Lung volumes are low. The lungs are clear. The costophrenic sulci are sharp without effusion. No pneumothorax is identified.Heart and mediastinum: The heart size is upper limits of normal normal. The mediastinal contours are normal. Bones and soft tissues: No acute abnormality.IMPRESSION: 1. Low lung volume without acute abnormality of the chest identified.2. The heart is at upper limits of normal in size. [facility]NttoezwCMNEBMKCM0207-98-59 06:15:00 Test Item Value Reference Range Interpretation Comments S Preg (test code = S Negative *NA*(02/17/23 Preg) 1:15 AM) [facility] TylerTdudmtbQUVYERWNOGGJW3904-74-77 06:15:00 Test Item Value Reference Range Interpretation Comments S Preg (test code = S Negative *NA*(02/17/23 Preg) 1:15 AM) [facility] TylerCcdwjjvYQXWLY3079-51-09 02:41:23 Test Item Value Reference Range Interpretation Comments RADRPT (test code = EXAM: CTA BRAINEXAM: CTA RADRPT) NECKEXAM: CT PERFUSION BRAINDATE: 02/16/2023INDICATION: - R sided weakness/numbness.COMPARI SON: Same date head CT.TECHNIQUE: - Dynamic CT perfusion images on a limited area of the brain parenchyma are performed during bolus injection of iodinated contrast material. Color maps of relative cerebral blood flow, relative cerebral blood volume, time to peak, and mean transit time are created on an independent workstation and are submitted along with the source image data. [facility] was used in the care of this patient.-Rapid acquisition spiral CT images of the brain and neck were obtained between the aortic arch and the cranial vertex during intravenous infusion of iodinated contrast for the purposes of CT angiography. 3-D CT angiographic images are created using MIP technique at the acquisition workstation. The source images are also presented for interpretation. IV contrast: Refer to MAR/medical lab technologist documentationDLP: Refer to CT protocol formFINDINGS:NECK CTA:Aortic arch: The great vessels originate from the aortic arch in the standard configuration. No origin stenosis is identified.Common carotid arteries: Normal.Internal carotid arteries:* Right: Normal.* Left: Normal.Vertebral arteries: Normal.Other: The soft tissues of the neck and other incidental structures are normal.BRAIN CTA:Arteries: The anterior and posterior circulations have a normal appearance and a standard branching pattern. No branch occlusion, vascular injury, arteritis, vascular malformation is identified. Veins: Cannot be evaluated due to the early arterial phase of contrast.Brain: There has been no significant change in the brain since the most recent exam.CT PERFUSION:Perfusion maps:The CTP acquisition is of adequate quality. There is no regional abnormality in cerebral blood flow, cerebral blood volume, or transit time in the imaged areas of the brain to suggest active oligemia or infarction.Quantitative software analysis:KQL6nna = 1 ccThere are no artifactual areas of predicted core or penumbra.Other: Multiple prominent bilateral cervical lymph nodes are noted. IMPRESSION:1. No large vessel occlusion. No concerning vascular abnormality.2. No vascular territorial perfusion abnormality.(All qualitative and quantitative assessments of carotid bifurcation and proximal internal carotid artery stenosis are made referencing the distal internal carotid artery {NASCET criteria}.)[facility] 02:37:04 Test Item Value Reference Range Interpretation Comments RADRPT (test code = EXAM: CT BRAIN WITHOUT RADRPT) CONTRASTDATE: 02/16/2023INDICATION: - R sided weakness/numbness.COMPARIS ON: None.TECHNIQUE: Axial CT images of the brain were obtained. Sagittal and coronal reformats.IV contrast: NoneDLP: Refer to CT protocol formFINDINGS: There is no edema, hemorrhage, mass lesion or other acute intracranial abnormality. There is a small focus of hypodensity inferior to the left lentiform nucleus (series 2 image 15 and series 901 image 20). This could represent a small infarct.ASPECTS: 9Laterality: leftCaudate: normalInternal capsule: normalLenticular: abnormalInsula: normalM1: normal M2: normal M3: normalM4: normal M5: normal M6: normalThe skull base, calvarium, and included facial bones are unremarkable. The paranasal sinuses are predominantly clear.IMPRESSION: Small ill-defined focus of low-density inferior to the left lentiform nucleus. This could represent a small infarct.No intracranial bleed or mass effect.UT SECTION: [facility] [id number] 02:24:00 Test Item Value Reference Range Interpretation Comments Total CK (test code = Total CK) 54 12-191 [facility]annCHEM [id number] 02:24:00 Test Item Value Reference Range Interpretation Comments Glucose Lvl (test code = Glucose Lvl) 100 70-99 [facility]annCHEM BPJEG9614-31-57 02:24:00 Test Item Value Reference Range Interpretation Comments BUN (test code = BUN) 10 7-22 [facility] ZEBRY1786-01-39 02:24:00 Test Item Value Reference Range Interpretation Comments Creatinine Lvl (test code = Creatinine 0.75 0.50-1.40 Lvl) [facility] HospitalannPegastech [id number] 02:24:00 Test Item Value Reference Range Interpretation Comments Sodium Lvl (test code = Sodium Lvl) 141 135-145 [facility] HospitalStampsy [id number] 02:24:00 Test Item Value Reference Range Interpretation Comments Potassium Lvl (test code = Potassium 3.9 3.5-5.1 Lvl) [facility] [id number] 02:24:00 Test Item Value Reference Range Interpretation Comments Chloride Lvl (test code = Chloride Lvl) 108 95-109 [facility]annPegastech [id number] 02:24:00 Test Item Value Reference Range Interpretation Comments CO2 (test code = CO2) 27 24-32 [facility]annCHEM [id number] 02:24:00 Test Item Value Reference Range Interpretation Comments Calcium Lvl (test code = Calcium Lvl) 9.8 8.5-10.5 [facility] GNKNH3644-10-21 02:24:00 Test Item Value Reference Range Interpretation Comments AGAP (test code = AGAP) 9.9 10.0-20.0 [facility]annPegastech [id number] 02:24:00 Test Item Value Reference Range Interpretation Comments eGFR (test code = eGFR) 117 [facility] HospitalLleopohAHIPYRPGM8194-44-17 02:24:00 Test Item Value Reference Range Interpretation Comments Total CK (test code = Total CK) 54 12-191 [facility] HospitalAvxhxffTNMXUSGNUN5669-24-08 02:24:00 Test Item Value Reference Range Interpretation Comments WBC X 10x3 (test code = WBC X 10x3) 8.9 3.7-10.4 [facility] HospitalMjollxqVDLLTDUFFQ5610-71-33 02:24:00 Test Item Value Reference Range Interpretation Comments RBC X 10x6 (test code = RBC X 10x6) 5.00 4.20-5.40 [facility] HospitalAtfimayZUXGFPAHWC4197-43-21 02:24:00 Test Item Value Reference Range Interpretation Comments Hgb (test code = Hgb) 13.3 12.0-16.0 [facility] HospitalMgasbrkTLNGMNQVYO0353-12-82 02:24:00 Test Item Value Reference Range Interpretation Comments Hct (test code = Hct) 40.6 36.0-48.0 [facility] HospitalEjieqmnHIDUMPYMER2277-02-20 02:24:00 Test Item Value Reference Range Interpretation Comments MCV (test code = MCV) 81.2 80.0-98.0 [facility] HospitalVrgqgnxAJOEPGNZJS1454-89-97 02:24:00 Test Item Value Reference Range Interpretation Comments MCH (test code = MCH) 26.6 pg 27.0-31.0 [facility] HospitalHapytueRTCFBVLRTY4089-52-05 02:24:00 Test Item Value Reference Range Interpretation Comments MCHC (test code = MCHC) 32.8 32.0-36.0 [facility] HospitalUjoodzlDKRMTOOJEK3468-65-62 02:24:00 Test Item Value Reference Range Interpretation Comments RDW (test code = RDW) 14.2 11.5-14.5 [facility] HospitalRfchxduXROLJPANER3802-84-70 02:24:00 Test Item Value Reference Range Interpretation Comments Platelet (test code = Platelet) 289 133-450 [facility] HospitalPrcslmbAEDMXCLGHC1218-43-31 02:24:00 Test Item Value Reference Range Interpretation Comments MPV (test code = MPV) 7.3 7.4-10.4 [facility] HospitalDpibgzgPCPEWXJTRN6198-46-06 02:24:00 Test Item Value Reference Range Interpretation Comments PT (test code = PT) 14.0 s 12.0-14.7 [facility] HospitalUrgnnjxHSUWTSSFPZ7029-06-90 02:24:00 Test Item Value Reference Range Interpretation Comments INR (test code = INR) 1.08 1 0.85-1.17 [facility] HospitalEeskofbXSLFKREURF9759-75-85 02:24:00 Test Item Value Reference Range Interpretation Comments PTT (test code = PTT) 36.2 s 22.9-35.8 [place] [id number] 02:24:00 Test Item Value Reference Range Interpretation Comments Segs (test code = Segs) 56.1 45.0-75.0 [place] [address]-10-15 02:24:00 Test Item Value Reference Range Interpretation Comments Lymphocytes (test code = Lymphocytes) 33.5 20.0-40.0 [place] [address]-10-15 02:24:00 Test Item Value Reference Range Interpretation Comments Monocytes (test code = Monocytes) 8.3 2.0-12.0 [place] [address]-10-15 02:24:00 Test Item Value Reference Range Interpretation Comments Eosinophils (test code = Eosinophils) 1.3 <=4.0 [place] [address]-10-15 02:24:00 Test Item Value Reference Range Interpretation Comments Basophils (test code = Basophils) 0.8 <=1.0 [place] [address]-10-15 02:24:00 Test Item Value Reference Range Interpretation Comments Neutrophils # (test code = Neutrophils 5.0 1.5-8.1 #) [place] [address]-10-15 02:24:00 Test Item Value Reference Range Interpretation Comments Lymphocytes # (test code = Lymphocytes 3.0 1.0-5.5 #) [facility] HospitalKjihwkqBAPGSUCIID8843-93-77 02:24:00 Test Item Value Reference Range Interpretation Comments Monocytes # (test code = Monocytes #) 0.7 <=0.8 [place] [address]-10-15 02:24:00 Test Item Value Reference Range Interpretation Comments Eosinophils # (test code = Eosinophils 0.1 <=0.5 #) [place] [address]-10-15 02:24:00 Test Item Value Reference Range Interpretation Comments Basophils # (test code = Basophils #) 0.1 <=0.2 [place] [address]-10-15 02:24:00 Test Item Value Reference Range Interpretation Comments PT (test code = PT) 14.0 s 12.0-14.7 [place] [address]-10-15 02:24:00 Test Item Value Reference Range Interpretation Comments INR (test code = INR) 1.08 1 0.85-1.17 [place] [address]-10-15 02:24:00 Test Item Value Reference Range Interpretation Comments PTT (test code = PTT) 36.2 s 22.9-35.8 [facility]2023-10-15 02:10:00 Test Item Value Reference Range Interpretation Comments Glucose POC (test code = Glucose POC) 100 70-99 [facility]
[2023-03-26] MEDS ORDERED: NA CHLORIDE 0.9% 1,000 ML ONE (11:08)
--- NOTE | 2023-03-26 11:13 | RAD REPORT ---
EXAM DESCRIPTION: CT - Head Brain Wo Cont - 03/26/2023 11:08 am CLINICAL HISTORY: SYNCOPE Headache, drowsiness, CVA symptomology COMPARISON: No comparisons TECHNIQUE: All CT scans are performed using dose optimization technique as appropriate and may inclu de automated exposure control or mA/KV adjustment according to patient size. FINDINGS: No intracranial hemorrhage, hydrocephalus or extra-axial fluid collection.No areas of brai n edema or evidence of midline shift. The paranasal sinuses and mastoids are clear. The calvarium is intact. IMPRESSION: No acute intracranial abnormality.
[2023-03-26 11:27] LABS: Absolute Lymphocytes (CBC) 2.5 K/uL (0.7-4.9); Hematocrit 39.6 % (36.0-45.0); Lymphocytes % 32.2 % (15.3-44.8); MCV 80.6 fL (80-100); MPV 7.5 fL (7.6-11.3); Platelets 289 thou/uL (152-406); RBC Red Blood Cell Count 4.91 M/uL (3.86-4.86)
--- NOTE | 2023-03-26 11:32 | RAD REPORT ---
EXAM DESCRIPTION: RAD - Chest Single View - 03/26/2023 11:15 am CLINICAL HISTORY: COUGH Chest pain. COMPARISON: No comparisons FINDINGS: Portable technique limits examination quality. The lungs are grossly clear. The heart is normal in size. No displaced fractures. IMPRESSION: No acute intrathoracic process suspected.
[2023-03-26 11:50] LABS: Albumin 3.5 g/dL (3.4-5.0); Bilirubin Total 0.7 mg/dL (0.2-1.0); Potassium 3.5 mEq/L (3.5-5.1)
[2023-03-26 11:56] LABS: Urine Bacteria None Seen /HPF (<20); Urine Bilirubin NEGATIVE (Negative); Urine Blood Negative (Negative); Urine Clarity Turbid (Clear); Urine Color Yellow (Yellow); Urine Glucose NEGATIVE (Negative); Urine Mucus 1+ /HPF (None Seen); Urine Protein TRACE (Negative); Urine RBC <5 /HPF (None Seen); Urine Urobilinogen 1+ (Normal)
[2023-03-26] MEDS ORDERED: ACETAMINOPHEN 500 MG TAB ONE (12:00)
--- NOTE | 2023-03-26 12:29 | RAD REPORT ---
EXAM DESCRIPTION: CT - Chest For Pe Angio - 03/26/2023 12:14 pm CLINICAL HISTORY: Chest pain. CHEST PAIN COMPARISON: No comparisons TECHNIQUE: CT angiogram of the pulmonary arteries was performed with MIP. All CT scans are performed using dose optimization technique as appropriate and may include automated exposure control or mA/KV adjustment according to patient size. FINDINGS: No evidence of pulmonary thromboembolism. No acute aortic finding demonstrated. The lungs are clear. No significant pericardial or pleural fluid. No concerning bony finding. IMPRESSION: No evidence of pulmonary thromboembolism. No acute lung findings.
--- NOTE | 2023-03-26 12:41 | EDPHYS ---
Physician Documentation [facility] Name: Vianney Anand Age: 22 yrs Sex: Female : 2000 Arrival Date: 03/26/2023 Time: 10:29 Bed 18 Private MD: ED Physician Ryan Stephens HPI: 03/26 11:21 This 22 yrs old Unknown Female presents to ER via Ambulatory with complaints of irene Syncope, Doesn't Feel Right. 11:21 The patient has experienced near-syncope, almost passed out, felt dizzy. Onset: The irene symptoms/episode began/occurred just prior to arrival. Duration: The patient has had multiple episodes, that last 10 second(s). Context: the episode(s) was witnessed, by family, . Associated injury: The patient did not suffer any apparent associated injury. Associated signs and symptoms: Pertinent positives: dizziness, headache, lightheadedness, shortness of breath. Current symptoms: headache, that is mild. The patient has not experienced similar symptoms in the past. Historical: - Allergies: 10:54 Latex, Natural Rubber; nj1 - Home Meds: 10:54 Topamax 100 mg Oral tablet 1 tab 2 times per day [Active]; rizatriptan 10 mg oral nj1 tablet [Active]; - PMHx: 10:54 Migraine; nj1 - Immunization history:: Client reports having NOT received the Covid vaccine. - Social history:: Smoking status: Patient denies any tobacco usage or history of. - Family history:: not pertinent. ROS: 11:21 Constitutional: Negative for fever, chills, and weight loss, Eyes: Negative for injury, irene pain, redness, and discharge, ENT: Negative for injury, pain, and discharge, Neck: Negative for injury, pain, and swelling, Cardiovascular: Negative for chest pain, palpitations, and edema, Respiratory: Negative for shortness of breath, cough, wheezing, and pleuritic chest pain, Abdomen/GI: Negative for abdominal pain, nausea, vomiting, diarrhea, and constipation, Back: Negative for injury and pain, : Negative for injury, bleeding, discharge, and swelling, MS/Extremity: Negative for injury and deformity, Skin: Negative for injury, rash, and discoloration, Psych: Negative for depression, anxiety, suicide ideation, homicidal ideation, and hallucinations, Allergy/Immunology: Negative for hives, rash, and allergies, Endocrine: Negative for neck swelling, polydipsia, polyuria, polyphagia, and marked weight changes, Hematologic/Lymphatic: Negative for swollen nodes, abnormal bleeding, and unusual bruising, 11:21 Neuro: Positive for dizziness, near syncope, weakness, Exam: 11:21 Constitutional: This is a well developed, well nourished patient who is awake, alert, irene and in no acute distress. Head/Face: Normocephalic, atraumatic. Eyes: Pupils equal round and reactive to light, extra-ocular motions intact. Lids and lashes normal. Conjunctiva and sclera are non-icteric and not injected. Cornea within normal limits. Periorbital areas with no swelling, redness, or edema. ENT: Nares patent. No nasal discharge, no septal abnormalities noted. Tympanic membranes are normal and external auditory canals are clear. Oropharynx with no redness, swelling, or masses, exudates, or evidence of obstruction, uvula midline. Mucous membranes moist. Neck: Trachea midline, no thyromegaly or masses palpated, and no cervical lymphadenopathy. Supple, full range of motion without nuchal rigidity, or vertebral point tenderness. No Meningismus. Chest/axilla: Normal chest wall appearance and motion. Nontender with no deformity. No lesions are appreciated. Cardiovascular: Regular rate and rhythm with a normal S1 and S2. No gallops, murmurs, or rubs. Normal PMI, no JVD. No pulse deficits. Respiratory: Lungs have equal breath sounds bilaterally, clear to auscultation and percussion. No rales, rhonchi or wheezes noted. No increased work of breathing, no retractions or nasal flaring. Abdomen/GI: Soft, non-tender, with normal bowel sounds. No distension or tympany. No guarding or rebound. No evidence of tenderness throughout. Back: No spinal tenderness. No costovertebral tenderness. Full range of motion. Skin: Warm, dry with normal turgor. Normal color with no rashes, no lesions, and no evidence of cellulitis. MS/ Extremity: Pulses equal, no cyanosis. Neurovascular intact. Full, normal range of motion. Neuro: Awake and alert, GCS 15, oriented to person, place, time, and situation. Cranial nerves II-XII grossly intact. Motor strength 5/5 in all extremities. Sensory grossly intact. Cerebellar exam normal. Normal gait. 11:21 ECG was reviewed by the Attending Physician. Vital Signs: 10:51 BP 131 / 84; Pulse 71; Resp 16; Temp 98.3(O); Pulse Ox 100% on R/A; Weight 141.07 kg; nj1 Height 5 ft. 6 in. ; 11:30 BP 120 / 51; Pulse 75; Resp 17; Temp 98.4(O); Pulse Ox 99% on R/A; rs5 12:27 BP 118 / 55; Pulse 67; Resp 17; Pulse Ox 99% on R/A; rs5 13:00 BP 117 / 70; Pulse 65; Resp 16 S; Pulse Ox 99% on R/A; aa5 10:51 Body Mass Index 50.20 (141.07 kg, 167.64 cm) nj1 MDM: 10:43 Patient medically screened. [facility] 11:25 Differential Diagnosis: cardiac arrhythmia, cerebrovascular accident, GI bleed, pseudo irene seizure, seizure, vasovagal episode. Data reviewed: vital signs, nurses notes, lab test result(s), EKG, radiologic studies, CT scan, plain films. Consideration of Admission/Observation Escalation of care including admission/observation considered. I considered the following discharge prescriptions or medication management in the emergency department Medications were administered in the Emergency Department. See MAR. Independent interpretation of the following test(s) in the Emergency Department EKG: See my EKG interpretation above. Test considered but Not performed: Ultrasound no 2 d echo. Care significantly affected by the following chronic conditions: migraine. Counseling: I had a detailed discussion with the patient and/or guardian regarding the historical points, exam findings, and any diagnostic results supporting the discharge/admit diagnosis, lab results, radiology results, the need for outpatient follow up, for definitive care, a family practitioner, a neurologist. 03/26 10:51 Order name: CBC with Diff; Complete Time: 11:45 [facility] 03/26 10:51 Order name: Comprehensive Metabolic Panel; Complete Time: 12:12 irene 03/26 10:51 Order name: Urinalysis w/ reflexes; Complete Time: 12:12 03/26 10:51 Order name: PREGU; Complete Time: 12:12 irene 03/26 10:51 Order name: Troponin HS; Complete Time: 12:12 03/26 10:51 Order name: Chest Single View XRAY; Complete Time: 11:45 [facility] 03/26 10:51 Order name: CT Head Brain wo Cont; Complete Time: 11:45 [facility] 03/26 11:20 Order name: CT Chest For PE Angio; Complete Time: 12:40 [facility] 03/26 10:51 Order name: EKG; Complete Time: 10:51 [facility] 03/26 10:51 Order name: EKG - Nurse/Tech; Complete Time: 11:02 [facility] EC:21 Rate is 70 beats/min. Rhythm is regular. QRS [place] is Normal. OR interval is normal. QRS irene interval is normal. QT interval is normal. No Q waves. T waves are Normal. No ST changes noted. Clinical impression: NSR w/ Non-specific ST/T Changes and No evidence of ischemia. Interpreted by me. Reviewed by me. Administered Medications: 10:55 Drug: NS 0.9% IV 1000 ml IV at 1 bolus Per protocol; 1000 mL bolus Route: IV; Rate: 1 rs5 bolus; Site: right antecubital; 11:27 Follow up: Response: No adverse reaction rs5 11:48 Drug: Acetaminophen PO 1000 mg PO once Route: PO; rs5 13:00 Follow up: Response: No adverse reaction; Pain is decreased rs5 Disposition Summary: 03/26/23 12:41 Discharge Ordered Notes: Location: Home irene Problem: new irene Symptoms: have improved irene Condition: Stable irene Diagnosis - Syncope Near irene - Weakness irene Followup: irene - With: Private Physician - When: 2 - 3 days - Reason: Recheck today's complaints, Continuance of care, Re-evaluation by your physician Followup: irene - With: Juan Carlos Cooley MD - When: 2 - 3 days - Reason: Recheck today's complaints, Re-evaluation by your physician Discharge Instructions: - Discharge Summary Sheet irene - Near-Syncope irene - Syncope irene - Weakness irene - Near-Syncope, [id number] irene - Syncope, Chph-ii-Aheg irene - Weakness, Putk-sw-Yhff irene - Deconditioning irene Forms: - Medication Reconciliation Form irene - Thank You Letter irene - Antibiotic Education irene - Prescription Opioid Use irene - Patient Portal Instructions irene - Leadership Thank You Letter irene Signatures: Dispatcher [employer] Ryan Mcneal MD MD cha Sotelo, Ricky RN RN rs5 Mary Tobar RN RN nj1 Corrections: (The following items were deleted from the chart) 10:56 10:54 Allergies: No Known Allergies; nj1 nj1
--- NOTE | 2023-03-26 12:41 | ER ---
Nurse's Notes [facility] [place] Name: Vianney Anand Age: 22 yrs Sex: Female : 2000 Arrival Date: 03/26/2023 Time: 10:29 Bed 18 Private MD: Diagnosis: Syncope Near;Weakness Presentation: 03/26 10:51 Chief complaint: Patient states: Near syncope. "I feel like when im about to black nj1 out". 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 for stroke like symptoms. Coronavirus screen: Vaccine status: Patient reports being unvaccinated. Ebola Screen: Patient denies travel to an Ebola-affected area in the 21 days before illness onset. Initial Sepsis Screen: Does the patient meet any 2 criteria? No. Patient's initial sepsis screen is negative. Does the patient have a suspected source of infection? No. Patient's initial sepsis screen is negative. Risk Assessment: Do you want to hurt yourself or someone else? Patient reports no desire to harm self or others. Onset of symptoms was March 26, 2023. 10:51 Method Of Arrival: Ambulatory nj1 10:51 Acuity: CAMRYN 3 nj1 Historical: - Allergies: 10:54 Latex, Natural Rubber; nj1 - Home Meds: 10:54 Topamax 100 mg Oral tablet 1 tab 2 times per day [Active]; rizatriptan 10 mg oral nj1 tablet [Active]; - PMHx: 10:54 Migraine; nj1 - Immunization history:: Client reports having NOT received the Covid vaccine. - Social history:: Smoking status: Patient denies any tobacco usage or history of. - Family history:: not pertinent. Screenin:55 [facility] ED Fall Risk Assessment (Adult) History of falling in the last 3 months, rs5 including since admission No falls in past 3 months (0 pts) Confusion or Disorientation No (0 pts) Intoxicated or Sedated No (0 pts) Impaired Gait No (0 pts) Mobility Assist Device Used No (0 pt) Altered Elimination No (0 pt) Score/Fall Risk Level 0 - 2 = Low Risk Oriented to surroundings, Maintained a safe environment. Abuse screen: Denies threats or abuse. Nutritional screening: No deficits noted. Tuberculosis screening: No symptoms or risk factors identified. Assessment: 10:55 General: Appears in no apparent distress. uncomfortable, Behavior is calm, cooperative. rs5 Pain: Complains of pain in head Pain does not radiate. Pain currently is 4 out of 10 on a pain scale. Quality of pain is described as aching, Pain began 2-3 days ago. Is continuous. Neuro: Level of Consciousness is awake, alert, obeys commands, Oriented to person, place, time, situation, [place] And [place] are equal bilaterally Moves all extremities. Gait is steady, Speech is normal, Facial symmetry appears normal, Pupils are PERRLA, Pupil Size: 3 mm Numbness in right arm Pt states "I had a stroke several months ago, and my right arms felt numb ever since, this is normal for me sine then". Cardiovascular: Heart tones S1 S2 present Rhythm is regular. Respiratory: Airway is patent Respiratory effort is even, unlabored, Respiratory pattern is regular, symmetrical, Breath sounds are clear bilaterally. GI: Abdomen is round non-distended, Bowel sounds present X 4 quads. Abd is soft and non tender X 4 quads. Patient currently denies nausea, vomiting. : No signs and/or symptoms were reported regarding the genitourinary system. EENT: No signs and/or symptoms were reported regarding the EENT system. Derm: Skin is intact, Skin is pink, warm \\T\\ dry. Musculoskeletal: Range of motion: intact in all extremities. 11:40 Pain: Complains of pain in head Pain does not radiate. Pain currently is 7 out of 10 on rs5 a pain scale. Quality of pain is described as aching, Is continuous. 11:40 Reassessment: Patient and/or family updated on plan of care and expected duration. Pain rs5 level reassessed. Patient is alert, oriented x 3, equal unlabored respirations, skin warm/dry/pink. Provider notified pt is experiencing pain. 11:45 Reassessment: To bedside for med adm. rs5 13:00 Reassessment: Patient is alert, oriented x 3, equal unlabored respirations, skin aa5 warm/dry/pink. 13:00 Pain: Denies pain. rs5 Vital Signs: 10:51 BP 131 / 84; Pulse 71; Resp 16; Temp 98.3(O); Pulse Ox 100% on R/A; Weight 141.07 kg; nj1 Height 5 ft. 6 in. ; 11:30 BP 120 / 51; Pulse 75; Resp 17; Temp 98.4(O); Pulse Ox 99% on R/A; rs5 12:27 BP 118 / 55; Pulse 67; Resp 17; Pulse Ox 99% on R/A; rs5 13:00 BP 117 / 70; Pulse 65; Resp 16 S; Pulse Ox 99% on R/A; aa5 10:51 Body Mass Index 50.20 (141.07 kg, 167.64 cm) nj1 ED Course: 10:34 Patient arrived in ED. mg5 10:43 Ryan Stephens MD is Attending Physician. irene 10:53 Kevon Almanza, ZENAIDA is Primary Nurse. rs5 10:54 Triage completed. nj1 10:55 Patient has correct armband on for positive identification. Placed in gown. Bed in low rs5 position. Call light in reach. Side rails up X2. 10:56 Arm band placed on right wrist. nj1 11:09 CT Head Brain wo Cont In Process Unspecified. EDMS 11:17 Chest Single View XRAY In Process Unspecified. EDMS 12:16 CT Chest For PE Angio In Process Unspecified. EDMS 12:41 Juan Carlos Cooley MD is Referral Physician. irene 13:00 No provider procedures requiring assistance completed. IV discontinued, intact, aa5 bleeding controlled, No redness/swelling at site. Pressure dressing applied. Administered Medications: 10:55 Drug: NS 0.9% IV 1000 ml IV at 1 bolus Per protocol; 1000 mL bolus Route: IV; Rate: 1 rs5 bolus; Site: right antecubital; 11:27 Follow up: Response: No adverse reaction rs5 11:48 Drug: Acetaminophen PO 1000 mg PO once Route: PO; rs5 13:00 Follow up: Response: No adverse reaction; Pain is decreased rs5 Medication: 13:00 VIS not applicable for this client. aa5 Outcome: 12:41 Discharge ordered by . irene 13:00 Discharged to home ambulatory, with significant other, aa5 13:00 Condition: stable 13:00 Discharge instructions given to patient, significant other, Instructed on discharge instructions, follow up and referral plans. Demonstrated understanding of instructions, follow-up care, 13:12 Patient left the ED. aa5 Signatures: Dispatcher [employer] EDRyan Eugene MD MD cha Calderon, Audri RN RN aa5 Kevon Almanza RN RN rs5 Mary Tobar RN RN nj1 Socorro Ralph mg5 Corrections: (The following items were deleted from the chart) 10:56 10:54 Allergies: No Known Allergies; [place] [id number] 11:54 11:40 Pain: Complains of pain in head Pain does not radiate. Pain currently is 7 out of rs5 10 on a pain scale. Quality of pain is described as aching, Is continuous, rs5
[2023-03-26 13:22] VITALS: BP 120/51; TEMP 98.4; O2SAT 99
--- NOTE | 2023-03-27 16:52 | EKG ---
Test Date: 2023-03-26 Test Time: 10:59:23 Engine Repair Supervisor: HERIBERTO MEASUREMENT RESULTS: Intervals: Rate: 70 [place]: 140 QRSD: 106 QT: 426 QTc: 460 [place]: P: 55 [place]: 140 QRS: 46 T: -6 INTERPRETIVE STATEMENTS: Sinus rhythm with marked sinus arrhythmia Otherwise normal ECG No previous ECG available for comparison Electronically Signed On 03-27-23 16:49:58 [employer] by Juvenal Garcia
== END 2023-03-26 13:12 | disposition home or self-care (01) ==
LOC: ER 10:29
DX: R55 Syncope and collapse (principal); R53.1 Weakness; Z79.899 Other long term (current) drug therapy; Z91.040 Latex allergy status
CPT/HCPCS: 93005; 85025; 81001; 36415; 81025; 84484; 80053; 70450; 71275; 71045; 99284; Q9967; J7030

== ENCOUNTER → 2023-05-13 | Emergency (ER) | payer OTHER ==
[~2023-05-13] MED LIST: PHENAZOPYRIDINE 100MG TAB PO ONE
[2023-05-13 20:28] LABS: Specific Gravity 1.013 (1.005-1.030)
[2023-05-13 21:00] LABS: Specific Gravity 1.013 (1.005-1.030); Urine Bacteria None Seen /HPF (<20); Urine Bilirubin NEGATIVE (Negative); Urine Blood Negative (Negative); Urine Clarity Turbid (Clear); Urine Color Light-Yellow (Yellow); Urine Glucose NEGATIVE (Negative); Urine Mucus Slight /HPF (None Seen); Urine Protein NEGATIVE (Negative); Urine RBC <5 /HPF (None Seen); Urine Urobilinogen Normal (Normal); Urine pH 6.5 (5.0-7.0)
--- NOTE | 2023-05-13 21:15 | ER ---
Nurse's Notes [facility] Name: Vianney Anand Age: 22 yrs Sex: Female : 2000 Arrival Date: 05/13/2023 Time: 19:35 Bed DX1 Private MD: Diagnosis: Pelvic and perineal pain Presentation: 05/13 19:52 Chief complaint: Patient states: SUPRAPUBIC PAIN x1 YR. Coronavirus screen: At this bp time, the client does not indicate any symptoms associated with coronavirus-19. Ebola Screen: No symptoms or risks identified at this time. Initial Sepsis Screen: Does the patient meet any 2 criteria? No. Patient's initial sepsis screen is negative. Does the patient have a suspected source of infection? No. Patient's initial sepsis screen is negative. Risk Assessment: Do you want to hurt yourself or someone else? Patient reports no desire to harm self or others. Note SEEN BY OB, NO DX MADE. Onset of symptoms is unknown. 19:52 Method Of Arrival: Ambulatory bp 19:52 Acuity: CAMRYN 3 bp Triage Assessment: 19:53 General: Appears in no apparent distress. Behavior is calm, cooperative, appropriate bp for age. Pain: Complains of pain in pelvis. GI: Abdomen is non-distended, obese. Historical: - Allergies: 19:53 Latex; bp - Home Meds: 19:53 rizatriptan 10 mg Oral tablet 1 tab NEEDED [Active]; Topamax 100 mg Oral tablet 1 bp tab 2 times per day [Active]; - PMHx: 19:53 Migraine; bp - Immunization history:: Adult Immunizations up to date. - Social history:: Smoking status: Patient denies any tobacco usage or history of. Screenin:32 [facility] ED Fall Risk Assessment (Adult) History of falling in the last 3 months, vc1 including since admission No falls in past 3 months (0 pts) Confusion or Disorientation No (0 pts) Intoxicated or Sedated No (0 pts) Impaired Gait No (0 pts) Mobility Assist Device Used No (0 pt) Altered Elimination No (0 pt) Score/Fall Risk Level 0 - 2 = Low Risk Oriented to surroundings, Maintained a safe environment, Educated pt \T\ family on fall prevention, incl call for assistance when getting out of bed. Abuse screen: Denies threats or abuse. Nutritional screening: No deficits noted. Tuberculosis screening: No symptoms or risk factors identified. Vital Signs: 19:52 BP 125 / 73; Pulse 71; Resp 16; Temp 98.1; Pulse Ox 100% ; Weight 136.08 kg; Height 5 bp ft. 6 in. ; 19:52 Body Mass Index 48.42 (136.08 kg, 167.64 cm) bp ED Course: 19:39 Patient arrived in ED. mr 19:53 Triage completed. bp 19:53 Arm band placed on. bp 19:56 Trina Arreaga FNP-C is PHCP. snw 19:56 Kriss Dang MD is Attending Physician. snw 21:33 No provider procedures requiring assistance completed. Patient did not have IV access vc1 during this emergency room visit. Administered Medications: 21:32 Drug: Phenazopyridine PO 200 mg PO once Route: PO; vc1 21:32 Follow up: Response: Medication administered at discharge. vc1 Medication: 21:33 VIS not applicable for this client. vc1 Outcome: 21:14 Discharge ordered by . snw 21:33 Discharged to home ambulatory, vc1 21:33 Condition: good 21:33 Discharge instructions given to patient, Instructed on discharge instructions, follow up and referral plans. medication usage, Demonstrated understanding of instructions, follow-up care, medications, Prescriptions given X 1, 21:34 Patient left the ED. vc1 Signatures: Trina Arreaga FNP-C [employer] KEE[employer] Leigh Casas, Reg Reg Roscoe Acuña, RN RN bp Lavonne Kern RN RN vc1
--- NOTE | 2023-05-13 21:15 | EDPHYS ---
Physician Documentation [facility] Name: Vianney Anand Age: 22 yrs Sex: Female : 2000 Arrival Date: 05/13/2023 Time: 19:35 Bed DX1 Private MD: ED Physician Kriss Dang HPI: 05/13 21:25 This 22 yrs old Female presents to ER via Ambulatory with complaints of Abdominal Pain. snw 21:25 The patient presents with abdominal pain perineal. Onset: The symptoms/episode snw began/occurred last year, and became persistent. The symptoms do not radiate. Associated signs and symptoms: none. The symptoms are described as vague, waxing/waning. Severity of pain: At its worst the pain was moderate. The patient has experienced similar episodes in the past, chronically. It is unknown whether or not the patient has recently seen a physician. Historical: - Allergies: 19:53 Latex; bp - Home Meds: 19:53 rizatriptan 10 mg Oral tablet 1 tab NEEDED [Active]; Topamax 100 mg Oral tablet 1 bp tab 2 times per day [Active]; - PMHx: 19:53 Migraine; bp - Immunization history:: Adult Immunizations up to date. - Social history:: Smoking status: Patient denies any tobacco usage or history of. ROS: 21:21 Constitutional: Negative for fever, chills, and weight loss, Eyes: Negative for injury, snw pain, redness, and discharge, ENT: Negative for injury, pain, and discharge, Neck: Negative for injury, pain, and swelling, Cardiovascular: Negative for chest pain, palpitations, and edema, Respiratory: Negative for shortness of breath, cough, wheezing, and pleuritic chest pain, Back: Negative for injury and pain, : Negative for injury, bleeding, discharge, and swelling, MS/Extremity: Negative for injury and deformity, Skin: Negative for injury, rash, and discoloration, Neuro: Negative for headache, weakness, numbness, tingling, and seizure, Psych: Negative for depression, anxiety, suicide ideation, homicidal ideation, and hallucinations, 21:21 Abdomen/GI: Positive for low perineal pain x 1 year. States her Horticultural Manager has done multiple ultrasounds and tests and has not given a diagnosis, Exam: 21:23 Constitutional: This is a well developed, well nourished patient who is awake, alert, snw and in no acute distress. Head/Face: Normocephalic, atraumatic. Eyes: Pupils equal round and reactive to light, extra-ocular motions intact. Lids and lashes normal. Conjunctiva and sclera are non-icteric and not injected. Cornea within normal limits. Periorbital areas with no swelling, redness, or edema. ENT: Nares patent. No nasal discharge, no septal abnormalities noted. Tympanic membranes are normal and external auditory canals are clear. Oropharynx with no redness, swelling, or masses, exudates, or evidence of obstruction, uvula midline. Mucous membranes moist. Neck: Trachea midline, no thyromegaly or masses palpated, and no cervical lymphadenopathy. Supple, full range of motion without nuchal rigidity, or vertebral point tenderness. No Meningismus. Chest/axilla: Normal chest wall appearance and motion. Nontender with no deformity. No lesions are appreciated. Cardiovascular: Regular rate and rhythm with a normal S1 and S2. No gallops, murmurs, or rubs. Normal PMI, no JVD. No pulse deficits. Respiratory: Lungs have equal breath sounds bilaterally, clear to auscultation and percussion. No rales, rhonchi or wheezes noted. No increased work of breathing, no retractions or nasal flaring. Back: No spinal tenderness. No costovertebral tenderness. Full range of motion. Skin: Warm, dry with normal turgor. Normal color with no rashes, no lesions, and no evidence of cellulitis. MS/ Extremity: Pulses equal, no cyanosis. Neurovascular intact. Full, normal range of motion. Neuro: Awake and alert, GCS 15, oriented to person, place, time, and situation. Cranial nerves II-XII grossly intact. Motor strength 5/5 in all extremities. Sensory grossly intact. Cerebellar exam normal. Normal gait. Psych: Awake, alert, with orientation to person, place and time. Behavior, mood, and affect are within normal limits. 21:23 Abdomen/GI: Inspection: obese Bowel sounds: normal, Palpation: moderate abdominal tenderness, in the suprapubic area, Vital Signs: 19:52 BP 125 / 73; Pulse 71; Resp 16; Temp 98.1; Pulse Ox 100% ; Weight 136.08 kg; Height 5 bp ft. 6 in. ; 19:52 Body Mass Index 48.42 (136.08 kg, 167.64 cm) bp MDM: 20:30 Patient medically screened. snw 21:18 Differential diagnosis: Dysmenorrhea, non-specific abd pain, Pelvic Inflammatory snw Disease, urinary tract infection. Data reviewed: vital signs, nurses notes. 21:24 Counseling: I had a detailed discussion with the patient and/or guardian regarding the snw historical points, exam findings, and any diagnostic results supporting the discharge/admit diagnosis, lab results, the need for outpatient follow up, for definitive care, to return to the emergency department if symptoms worsen or persist or if there are any questions or concerns that arise at home. Special discussion: Based on the history and exam findings, there is no indication for further emergent testing or inpatient evaluation. I discussed with the patient/guardian the need to see the OB Gyne specialist for further evaluation of the symptoms. 05/13 19:54 Order name: Urinalysis w/ reflexes; Complete Time: 21:10 bp 05/13 19:54 Order name: Test, Urine; Complete Time: 20:30 bp Administered Medications: 21:32 Drug: Phenazopyridine PO 200 mg PO once Route: PO; vc1 21:32 Follow up: Response: Medication administered at discharge. vc1 Disposition: 05/14 20:02 Co-signature as Attending Physician, Kriss Dang MD I agree with the assessment and gb1 plan of care. I reviewed the patient's care provided by the Advanced Practice Provider and agree with the diagnosis and treatment plan. Disposition Summary: 05/13/23 21:14 Discharge Ordered Notes: Location: Home snw Condition: Stable snw Diagnosis - Pelvic and perineal pain snw Followup: snw - With: Emergency Department - When: As needed - Reason: Worsening of condition Followup: snw - With: Private Physician - When: Tomorrow - Reason: Recheck today's complaints, Continuance of care, Re-evaluation by your physician Discharge Instructions: - Discharge Summary Sheet snw - Colic snw - Pelvic Pain, Female snw - Pelvic Pain, Female, [id number] snw - Interstitial Cystitis snw - Eating Plan for Interstitial Cystitis snw Forms: - Work release form snw - Medication Reconciliation Form snw - Thank You Letter snw - Antibiotic Education snw - Prescription Opioid Use snw - Patient Portal Instructions snw - Leadership Thank You Letter snw Prescriptions: - Pyridium 200 mg Oral Tablet - take 1 tablet ORAL route every 8 hours for 3 days; 9 tablet; Refills: 0, snw Product Selection Permitted Signatures: Dispatcher [employer] EDMS Trina Arreaga, VOCATIONAL TRAINING INSTRUCTOR-C VOCATIONAL TRAINING INSTRUCTOR-Csnw Roscoe Kapoor RN RN bp Lavonne Kern RN RN vc1 Kriss Dang MD MD gb1
[2023-05-14 01:39] VITALS: BP 125/73; TEMP 98.1; O2SAT 100
== END ==
LOC: ER 19:35
DX: R10.2 Pelvic and perineal pain (principal); Z91.040 Latex allergy status
CPT/HCPCS: 81001; 81025; 99283

== ENCOUNTER 2023-06-27 10:19 | Day surgery (SDC) | payer OTHER ==
[2023-06-27] MEDS ORDERED: NA CHLORIDE 0.9% 500 ML ONE (10:23)
[2023-06-27 10:48] VITALS: TEMP 97.5
[2023-06-27] MEDS ORDERED: LIDOCAINE 2% MPF 5 ML VIAL ONE (11:35)
[2023-06-27] MEDS ORDERED: propofoL 200 MG/20 ML VIAL IV ONE ×2 (11:35→11:49)
[2023-06-27 13:05] VITALS: BP 120/60; O2SAT 100
--- NOTE | 2023-06-27 23:41 | OP ---
Date of Procedure: 06/27/2023 Surgeon: APRIL STANTON Procedure Performed: Transesophageal echocardiogram with bubble study. Indication: Rule out PFO. Description Of Procedure: After risks, benefits, and alternatives were explained, the patient agreed to procedure and signed informed consent. The patient was brought into the operating room and deep sedation with propofol was initiated and then LEATHA probe was inserted without difficulty. Bubble stud y was performed. No PFO was found. LEATHA probe was removed. The patient was sent to recovery in stab le condition. Conclusion: Successful transesophageal echocardiogram and negative bubble study for PFO. SR/MODL Voice ID: [id number] Report ID: [id number]
--- NOTE | 2023-06-28 07:35 | TEE ---
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 TRANSESOPHAGEAL ECHOCARDIOGRAM WAS INSERTED, NO DIFFICULTY 2. NORMAL LEFT VENTRICULAR EJECTION FRACTION 55-60% 3. BUBBLE STUFY WAS NEGATIVE FOR INTRA CARDIAC SHUNT. TECHNOLOGIST: SHANNEN STAPLES
== END 2023-06-27 12:30 | disposition home or self-care (01) ==
LOC: CCL 10:19
PROVIDERS: ATTEND Internal Medicine
DX: Q21.12 Patent foramen ovale (principal)
CPT/HCPCS: 93312; J2704 ×2; J2001; J7040

== ENCOUNTER 2023-07-09 13:17 | Observation (INO) | payer OTHER ==
[2023-07-09] MEDS ORDERED: ONDANSETRON 4 MG/2 ML VIAL ONE (13:37)
[2023-07-09] MEDS ORDERED: NA CHLORIDE 0.9% 1,000 ML ONE (13:37)
[2023-07-09] MEDS ORDERED: FAMOTIDINE 20 MG/2 ML VIAL IV ONE (13:37)
[2023-07-09] MEDS ORDERED: KETOROLAC 30 MG/ML INJ ONE (13:37)
[2023-07-09 14:14] LABS: Absolute Basophils 0.1 K/uL (0-0.5); Absolute Eosinophils 0.1 K/uL (0-0.5); Absolute Lymphocytes (CBC) 2.1 K/uL (0.7-4.9); Absolute Monocytes 0.8 K/uL (0.1-1.3); Basophils % 0.8 % (0-1.3); Eosinophils % 1.7 % (0-4.4); Hemoglobin 12.4 g/dL (12.0-15.0); Lymphocytes % 34.7 % (15.3-44.8); MCH 27.5 pg (27.0-35.0); MCHC 34.3 g/dL (32.0-36.0); MCV 80.1 fL (80-100); Monocytes % 13.1 % (3.3-12.3); Neutrophils % 49.7 % (41.7-73.7); Platelets 241 thou/uL (152-406); RBC Red Blood Cell Count 4.49 M/uL (3.86-4.86); Red Cell Distribution Width 14.4 % (12.1-15.2)
[2023-07-09 14:19] LABS: Specific Gravity 1.027 (1.005-1.030)
[2023-07-09 14:21] LABS: Specific Gravity 1.028 (1.005-1.030); Urine Bacteria <20 /HPF (<20); Urine Bilirubin NEGATIVE (Negative); Urine Blood 1+ (Negative); Urine Clarity Turbid (Clear); Urine Color Yellow (Yellow); Urine Glucose NEGATIVE (Negative); Urine Mucus 1+ /HPF (None Seen); Urine Protein TRACE (Negative); Urine RBC >50 /HPF (None Seen); Urine Urobilinogen 2+ (Normal); Urine Yeast (Budding) Trace /HPF (None Seen)
[2023-07-09 14:31] LABS: Albumin/Globulin Ratio 0.8 (1.1-1.8); Bilirubin Total 0.3 mg/dL (0.2-1.0)
--- NOTE | 2023-07-09 14:40 | RAD REPORT ---
EXAM DESCRIPTION: US - Abdomen Exam Limited - 07/09/2023 1:50 pm CLINICAL HISTORY: ABD PAIN COMPARISON: No comparisons TECHNIQUE: Sonographic grayscale and color flow images of the right upper abdominal quadrant were o btained. FINDINGS: The gallbladder demonstrates no gallstones. No pericholecystic fluid or gallbladder wall t hickening. The common bile duct is normal measuring 3 mm. The liver demonstrates no findings of intrahepatic biliary dilatation. IMPRESSION: Unremarkable examination.
--- NOTE | 2023-07-09 16:04 | RAD REPORT ---
EXAM DESCRIPTION: CT - Abdomen Pelvis W Contrast - 07/09/2023 3:00 pm CLINICAL HISTORY: ABD PAIN COMPARISON: No comparisons TECHNIQUE: Thin cut axial CT imaging of the abdomen and pelvis was performed following intravenous a dministration of 100 mL Isovue 300. Multiplanar reformats were generated and reviewed. All CT scans are performed using dose optimization technique as appropriate and may include automated exposure control or mA/KV adjustment according to patient size. FINDINGS: No suspicious findings in the lung bases. The liver, spleen, adrenal glands, and pancreas show no suspicious findings. Gallbladder and biliary tree are also without suspicious finding. No suspicious focal masses. Multifocal areas of swelling, hypoenhancement, and adjacent fat stranding along the left anterior upper to midpole cortex. No hydronephrosis or radiopaque calculi. . No dilated bowel loops or bowel wall thickening. No free air, free fluid or inflammatory stranding. N o hernia, mass or bulky lymphadenopathy. 5.4 cm right adnexal cyst or dominant follicle. The urinary bladder is decompressed limiting evaluation No suspicious bony findings. IMPRESSION: Multifocal areas of hypoenhancement in the left anterior renal cortex, concerning for py elonephritis. No radiopaque calculi or evidence of obstruction. Incidentally noted right adnexal 5.4 cm cyst,, probably physiologic. Follow-up pelvic ultrasound in 6 -10 weeks is recommended to ensure stability or resolution.
--- NOTE | 2023-07-09 16:37 | EDPHYS ---
Physician Documentation [facility] Name: Vianney Anand Age: 22 yrs Sex: Female : 2000 Arrival Date: 07/09/2023 Time: 13:17 Bed 6 Private MD: ED Physician David Graff HPI: 07/08 13:30 This 22 yrs old Female presents to ER via Unassigned with complaints of Abdominal Pain. kb 13:30 Pt is a 22 year old female who presents for upper abd pain, nausea and fever that kb started 6 days ago. States she was seen by her PCP 5 days ago and referred to the ER. Pt went to [facility] ER and was diagnosed with a UTI. States she had a CT at the time and it was negative for appendicitis. . 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 - Social history:: Smoking status: Patient denies any tobacco usage or history of. ROS: 13:30 Respiratory: Negative for shortness of breath, cough, wheezing, and pleuritic chest kb pain, 13:30 Constitutional: Positive for fever, 13:30 Abdomen/GI: Positive for abdominal pain, nausea, 13:30 All other systems are negative, Exam: 13:30 Constitutional: This is a well developed, well nourished patient who is awake, alert, kb and in no acute distress. Head/Face: Normocephalic, atraumatic. ENT: Moist Mucous membranes Cardiovascular: Regular rate Respiratory: Respirations even and unlabored. No increased work of breathing. Talking in full sentences Skin: Warm, dry with normal turgor. Normal color. MS/ Extremity: Pulses equal, no cyanosis. Neurovascular intact. Full, normal range of motion. Neuro: Awake and alert, GCS 15, oriented to person, place, time, and situation. Moves all extremities. Normal gait. 13:30 Abdomen/GI: Inspection: abdomen appears normal, Bowel sounds: normal, Palpation: soft, in all quadrants, moderate abdominal tenderness, in the right upper quadrant, 17:14 ECG was reviewed by the Attending Physician. kb Vital Signs: 13:32 BP 117 / 63; Pulse 81; Resp 16 S; Temp 97.9(O); Pulse Ox 100% on R/A; Weight 131.54 kg as6 (R); Height 5 ft. 6 in. (R); Pain 8/10; 15:29 BP 105 / 50; Pulse 64; Resp 16; Pulse Ox 100% ; bp 16:24 BP 102 / 71; Pulse 47; Resp 15; Pulse Ox 100% ; bp 19:52 BP 125 / 61; Pulse 73; Resp 16; Pulse Ox 100% on R/A; jb4 20:49 BP 120 / 81; Pulse 74; Resp 19; Pulse Ox 100% ; Pain 0/10; jj7 13:32 Body Mass Index 46.81 (131.54 kg, 167.64 cm) as6 13:32 Pain Scale: Adult as6 20:49 Pain Scale: Adult jj7 MDM: 13:25 Patient medically screened. kb 13:30 Differential diagnosis: cholecystitis, Cholelithiasis, non-specific abd pain, kb pancreatitis. Data reviewed: vital signs, nurses notes. 16:36 Consideration of Admission/Observation Patient was admitted/placed on observation. kb Escalation of care including admission/observation considered. Management of patient was discussed with the following: Hospitalist: Hospitalist team, pt accepted under Dr Batista. Counseling: I had a detailed discussion with the patient and/or guardian regarding the historical points, exam findings, and any diagnostic results supporting the discharge/admit diagnosis, lab results, radiology results, the need for further work-up and treatment in the hospital. 07/08 13:30 Order name: CBC with Diff; Complete Time: 14:24 kb 07/08 13:30 Order name: CMP; Complete Time: 14:32 kb 07/08 13:30 Order name: Lipase; Complete Time: 14:32 kb 07/08 13:30 Order name: Test, Urine; Complete Time: 14:24 kb 07/08 13:30 Order name: Urinalysis w/ reflexes; Complete Time: 14:24 kb 07/08 16:35 Order name: Blood Culture Adult (2) kb 07/08 16:35 Order name: Lactate w/ 2H reflex if indic.; Complete Time: 17:53 kb 07/08 16:35 Order name: Protime (+inr); Complete Time: 17:45 kb 07/08 16:35 Order name: Ptt, Activated; Complete Time: 17:45 kb 07/08 17:33 Order name: Urine Microscopic Reflex EDMS 07/08 17:33 Order name: Basic Metabolic Panel EDMS 07/08 17:33 Order name: Basic Metabolic Panel EDMS 07/08 17:33 Order name: CBC with Automated Diff EDMS 07/08 17:33 Order name: CBC with Automated Diff EDMS 07/08 17:33 Order name: Magnesium EDMS 07/08 17:33 Order name: Magnesium EDMS 07/08 17:33 Order name: Phosphorus EDMS 07/08 17:33 Order name: Phosphorus EDMS 07/08 13:30 Order name: Abdomen Limited US; Complete Time: 14:43 kb 07/08 14:44 Order name: CT Abd/Pelvis - IV Contrast Only; Complete Time: 16:06 kb 07/08 16:35 Order name: EKG; Complete Time: 16:36 kb 07/08 13:30 Order name: IV Saline Lock; Complete Time: 14:06 kb 07/08 13:30 Order name: Labs collected and sent; Complete Time: 14:06 kb 07/08 16:35 Order name: Accucheck; Complete Time: 16:47 kb 07/08 16:35 Order name: Cardiac monitoring; Complete Time: 16:46 kb 07/08 16:35 Order name: EKG - Nurse/Tech; Complete Time: 17:13 kb 07/08 16:35 Order name: IV Saline Lock - Large Bore; Complete Time: 16:46 kb 07/08 16:35 Order name: O2 Per Protocol; Complete Time: 16:46 kb 07/08 16:35 Order name: O2 Sat Monitoring; Complete Time: 16:46 kb 07/08 16:35 Order name: Vital Signs; Complete Time: 16:46 kb EC:14 Rate is 59 beats/min. Rhythm is regular. QRS [place] is Normal. ID interval is normal at kb 136 msec. QRS interval is normal at 104 msec. QT interval is normal at 451 msec. Administered Medications: 14:06 Drug: NS 0.9% IV 1000 ml IV at 1 bolus Per protocol; 1000 mL bolus Route: IV; Rate: 1 ko1 bolus; Site: right antecubital; 16:48 Follow up: Response: No adverse reaction; IV Status: Completed infusion; IV Intake: ko1 1000ml 14:06 Drug: Famotidine IVP 20 mg IVP once; dilute with 10 mL 0.9% NaCl; give over 2 minutes ko1 Route: IVP; Site: right antecubital; 16:48 Follow up: Response: No adverse reaction ko1 14:06 Drug: Ondansetron IVP 4 mg IVP once; over 2 minutes Route: IVP; Site: right antecubital;ko1 16:48 Follow up: Response: No adverse reaction ko1 14:22 Drug: TORadol - Ketorolac IVP 15 mg IVP once Route: IVP; Site: right antecubital; ko1 16:48 Follow up: Response: No adverse reaction ko1 17:22 Drug: Rocephin IV 1 grams IV at calculated rate once; Given slow IV push per pharmacy bp instructions Route: IV; Rate: calculated rate; Site: right antecubital; 19:00 Follow up: IV Status: Completed infusion jj7 Disposition: 07/09 14:57 Co-signature as Attending Physician, David Graff MD I reviewed the patient's care rn provided by the Advanced Practice Provider and agree with the diagnosis and treatment plan. Disposition Summary: 07/09/23 16:37 Hospitalization Ordered Notes: Hospitalization Status: Inpatient Admission kb Provider: Sage Batista [facility] kb Condition: Stable kb Problem: new kb Symptoms: are unchanged kb Bed/Room Type: Standard Room Assignment: 423(07/09/23 17:45) ja1 Diagnosis - Pyelonephritis acute - failed outpatient treatment kb Forms: - Medication Reconciliation Form kb - SBAR form kb - Leadership Thank You Letter kb Signatures: Dispatcher [employer] Diana Vieira, CRYPTOLOGIC TECHNICIAN OPERATOR/ANALYST-C CRYPTOLOGIC TECHNICIAN OPERATOR/ANALYST-Ckb David Graff MD MD rn Aguilar, Jose RN RN ramon1 Roscoe Kapoor RN RN bp Slawson, Ashby, RN RN as6 Shirin Burch RN RN ko1 Rory Llamas RN jj7 Corrections: (The following items were deleted from the chart) 07/08 13:34 13:33 PMHx: Migraine; as6 as6 17:45 16:37 kb ja1
--- NOTE | 2023-07-09 16:37 | ER ---
Nurse's Notes [facility] Name: Vianney Anand Age: 22 yrs Sex: Female : 2000 Arrival Date: 07/09/2023 Time: 13:17 Bed 6 Private MD: Diagnosis: Pyelonephritis acute-failed outpatient treatment Presentation: 07/08 13:34 Chief complaint: Patient states: pt was recently diagnosis with kidney infection and as6 was told if she didn't feel better and have improvement in the next few days to come to ER. Coronavirus screen: At this time, the client does not indicate any symptoms associated with coronavirus-19. Ebola Screen: No symptoms or risks identified at this time. Initial Sepsis Screen: Does the patient meet any 2 criteria? No. Patient's initial sepsis screen is negative. Does the patient have a suspected source of infection? No. Patient's initial sepsis screen is negative. Risk Assessment: Do you want to hurt yourself or someone else? Patient reports no desire to harm self or others. Onset of symptoms was July 04, 2023. 13:34 Acuity: CAMRYN 3 as6 13:34 Method Of Arrival: Ambulatory as6 Triage Assessment: 13:32 General: Appears uncomfortable, Behavior is calm, cooperative. General: Reports fever as6 for. Pain: Complains of pain in right upper quadrant. GI: Reports upper abdominal pain, nausea. 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 - Social history:: Smoking status: Patient denies any tobacco usage or history of. Screenin:[facility] ED Fall Risk Assessment (Adult) History of falling in the last 3 months, bp including since admission No falls in past 3 months (0 pts). Abuse screen: Denies threats or abuse. Denies injuries from another. Nutritional screening: No deficits noted. Tuberculosis screening: No symptoms or risk factors identified. Assessment: 14:08 General: Appears in no apparent distress. Behavior is calm, cooperative, appropriate ko1 for age. Pain: Complains of pain in right upper quadrant. Neuro: No deficits noted. Cardiovascular: No deficits noted. Respiratory: No deficits noted. GI: Bowel sounds present X 4 quads. Abd is soft X 4 quads. : No deficits noted. EENT: No deficits noted. Derm: No deficits noted. Musculoskeletal: No deficits noted. 15:31 Reassessment: No changes from previously documented assessment. Patient is alert, bp oriented x 3, equal unlabored respirations, skin warm/dry/pink. 16:24 Reassessment: Patient appears in no apparent distress at this time. Patient is alert, bp oriented x 3, equal unlabored respirations, skin warm/dry/pink. 18:00 Reassessment: ATTEMPTED TO CALL REPORT TO 4TH, NO ANSWER. bp 18:12 Reassessment: ATTEMPTED TO CALL REPORT TO 4TH, NO ANSWER. bp 18:20 Reassessment: DIRECTED TO 2ND FLOOR CHARGE BY JUANA CHANDRA. 4TH FLOOR NURSES CONTACTED BY bp NANCI ESTEVEZ, BOTH INDICATED OCCUPIED WITH PATIENT CARE AND UNABLE TO TAKE REPORT. REPORT AND ADMIT DEFERRED TO NEXT SHIFT BY NANCI ESTEVEZ AND 4TH FLOOR STAFF. 19:52 Reassessment: Patient appears in no apparent distress at this time. Patient and/or jb4 family updated on plan of care and expected duration. Pain level reassessed. Patient is alert, oriented x 3, equal unlabored respirations, skin warm/dry/pink. Vital Signs: 13:32 BP 117 / 63; Pulse 81; Resp 16 S; Temp 97.9(O); Pulse Ox 100% on R/A; Weight 131.54 kg as6 (R); Height 5 ft. 6 in. (R); Pain 8/10; 15:29 BP 105 / 50; Pulse 64; Resp 16; Pulse Ox 100% ; bp 16:24 BP 102 / 71; Pulse 47; Resp 15; Pulse Ox 100% ; bp 19:52 BP 125 / 61; Pulse 73; Resp 16; Pulse Ox 100% on R/A; jb4 20:49 BP 120 / 81; Pulse 74; Resp 19; Pulse Ox 100% ; Pain 0/10; jj7 13:32 Body Mass Index 46.81 (131.54 kg, 167.64 cm) as6 13:32 Pain Scale: Adult as6 20:49 Pain Scale: Adult jj7 ED Course: 13:24 Patient arrived in ED. im 13:25 [facility] kb 13:25 David Graff MD is Attending Physician. kb 13:26 Roscoe Kapoor, ZENAIDA is Primary Nurse. bp 13:32 Arm band placed on. as6 13:37 Triage completed. as6 13:51 Abdomen Limited US In Process Unspecified. EDMS 13:57 Urinalysis w/ reflexes Sent. ko1 13:57 Test, Urine Sent. ko1 14:06 CBC with Diff Sent. ko1 14:06 CMP Sent. ko1 14:06 Lipase Sent. ko1 14:07 Patient has correct armband on for positive identification. Allergy band placed. Placed ko1 in gown. Bed in low position. Call light in reach. Side rails up X 1. Pulse ox on. NIBP on. Door closed. Noise minimized. Lights dimmed. Warm blanket given. Assisted to bathroom. 14:07 Initial lab(s) drawn, by pr, sent to lab. Urine collected: clean catch specimen, clear, ko1 Amount Voided: 500mL. Inserted saline lock: 20 gauge in right antecubital area, using aseptic technique. Blood collected. 15:01 CT Abd/Pelvis - IV Contrast Only In Process Unspecified. EDMS 16:37 Sage Batista is Hospitalizing Provider. kb 16:46 Shirin Burch, RN is Primary Nurse. ko1 17:15 Blood Culture Adult (2) Sent. ko1 17:15 Lactate w/ 2H reflex if indic. Sent. ko1 17:15 Protime (+inr) Sent. ko1 17:15 Ptt, Activated Sent. ko1 17:54 No provider procedures requiring assistance completed. Patient admitted, IV remains in ko1 place. 17:57 Provided Education on: NA. ko1 19:12 Primary Nurse role handed off by Shirin Burch, RN as6 Administered Medications: 14:06 Drug: NS 0.9% IV 1000 ml IV at 1 bolus Per protocol; 1000 mL bolus Route: IV; Rate: 1 ko1 bolus; Site: right antecubital; 16:48 Follow up: Response: No adverse reaction; IV Status: Completed infusion; IV Intake: ko1 1000ml 14:06 Drug: Famotidine IVP 20 mg IVP once; dilute with 10 mL 0.9% NaCl; give over 2 minutes ko1 Route: IVP; Site: right antecubital; 16:48 Follow up: Response: No adverse reaction ko1 14:06 Drug: Ondansetron IVP 4 mg IVP once; over 2 minutes Route: IVP; Site: right antecubital;ko1 16:48 Follow up: Response: No adverse reaction ko1 14:22 Drug: TORadol - Ketorolac IVP 15 mg IVP once Route: IVP; Site: right antecubital; ko1 16:48 Follow up: Response: No adverse reaction ko1 17:22 Drug: Rocephin IV 1 grams IV at calculated rate once; Given slow IV push per pharmacy bp instructions Route: IV; Rate: calculated rate; Site: right antecubital; 19:00 Follow up: IV Status: Completed infusion jj7 Medication: 17:55 VIS not applicable for this client. ko1 Intake: 16:48 IV: 1000ml; Total: 1000ml. ko1 Outcome: 16:37 Decision to Hospitalize by Provider. kb 16:40 Admitted to ER Hold. Please see [facility] for further documentation. ko1 16:40 Instructed on the need for admit, 17:55 Condition: stable ko1 20:34 Admitted to Med/surg accompanied by tech, via wheelchair, room 423, jj7 20:34 Admitted to Med/surg Report called to CARLOS ESTEVEZ 20:34 Condition: improved 20:54 Patient left the ED. jb4 Signatures: Dispatcher [employer] EDMS Diana Castro, ROSETTE-[facility]on[facility]-Jacoby Julien RN RN jb4 Roscoe Kapoor RN ZENAIDA bp Charlie Ann RN RN as6 Shirin Burch RN RN ko1 Rory Llamas RN RN jj7 Delia Sam Corrections: (The following items were deleted from the chart) 13:34 13:33 PMHx: Migraine; as6 as6 14:16 14:07 TORadol - Ketorolac IVP 15 mg IVP in right antecubital ko1 ko1
--- NOTE | 2023-07-09 16:52 | P.HP ---
Patient History Date of Service: 07/09/23 Reason for admission: Left pyelonephritis History of Present Illness: Vianney Anand is a 22-year-old female with past medical history of cardiovascular accident (Feb 2023) and migraines, who presents to the ED with complaints of upper abdominal pain associated with nausea and fever that started 6 days ago. She was seen by her PCP 5 days ago and referred to the ED at which time patient went to [facility] ER and was diagnosed with a UTI. She presents to the ED today with outpatient treatment failure for urinary tract infection which has led to Left pyelonephritis. Initial vitals BP 117 / 63; Pulse 81; Resp 16 S; Temp 97.9(O); Pulse Ox 100% on R/A Laboratory evaluation unremarkable, UA presents with negative nitrates, 500 leukocyte Estrace, RBC greater than 50, budding yeast, test negative. CT abdomen pelvis reports "Multifocal areas of hypoenhancement in the left anterior renal cortex, concerning for pyelonephritis. No radiopaque calculi or evidence of obstruction. Incidentally noted right adnexal 5.4 cm cyst,, probably physiologic. Follow-up pelvic ultrasound in 6-10 weeks is recommended to ensure stability or resolution." Ultrasound abdomen reports "The gallbladder demonstrates no gallstones. No pericholecystic fluid or gallbladder wall thickening. The common bile duct is normal measuring 3 mm. The liver demonstrates no findings of intrahepatic biliary dilatation" Vianney will be admitted to hospitalist service for further evaluation and treatment of left pyelonephritis with administartion of IV antibiotics. Allergies Latex, Natural Rubber Allergy (Verified 07/09/23 17:43) - Past Medical/Surgical History -: Migraines -: CVA -: Tonsillectomy -: Knee -: [place] teeth - Family History Family History: Reviewed- Non-Contributory - Social History Smoking Status: Never smoker Alcohol use: No CD- Drugs: No Review of Systems General: Fever, Chills, Weakness Gastrointestinal: Abdominal Pain Physical Examination - Physical Exam General: Alert, In no apparent distress, Oriented x3 HEENT: Atraumatic, Normocephalic, PERRLA Neck: Supple, 2+ carotid pulse no bruit, JVD not distended Respiratory: Clear to auscultation bilaterally, Normal air movement Cardiovascular: Normal pulses, Regular rate/rhythm, Normal S1 S2 Capillary refill: <2 Seconds Gastrointestinal: Normal bowel sounds, Soft and benign, Tenderness (right sided) Musculoskeletal: No clubbing, No swelling, No contractures Integumentary: No breakdown, No significant lesion Neurological: Normal speech, Normal strength at 5/5 x4 extr, Normal tone - Studies Laboratory Data (last 24 hrs) 07/09/23 07/09/23 14:00 14:00 WBC 6.00 Hgb 12.4 Hct 36.0 Plt Count 241 Sodium 139 Potassium 4.0 BUN 8 Creatinine 0.65 Glucose 101 Total Bilirubin 0.3 AST 12 L ALT 19 Alkaline Phosphatase 76 Lipase 15 Assessment and Plan - Plan Assessment and plan Acute left pyelonephritis UTI POA Febrile -Failed cefdinir outpatient -UA presents with negative nitrates, 500 leukocyte Estrace, RBC greater than 50, budding yeast, test negative -Rocephin and toradol given in ED -Ciprofloxacin -IV fluids -Antipyretics, antiemetics -CT abdomen pelvis reports "Multifocal areas of hypoenhancement in the left anterior renal cortex, concerning for pyelonephritis. No radiopaque calculi or evidence of obstruction. Incidentally noted right adnexal 5.4 cm cyst,, probably physiologic. Follow-up pelvic ultrasound in 6-10 weeks is recommended to ensure stability or resolution." -Ultrasound abdomen reports "The gallbladder demonstrates no gallstones. No pericholecystic fluid or gallbladder wall thickening. The common bile duct is normal measuring 3 mm. The liver demonstrates no findings of intrahepatic biliary dilatation" Right adnexal 5.4 cm cyst As seen on CT abd/pelvis Outpatient follow up with pelvic US in 6-10 weeks History of CVA (February 2023) No home medications at this time History of Migraines Restart home medications DVT PPx Lovenox Full code LOS 2 days Discharge Plan: Home Plan to discharge in: 48 Hours - Advance Directives Does patient have a Living Will: No Does patient have a Durable POA for Healthcare: No Time Spent Managing Pts Care (In Minutes): 50
[2023-07-09] MEDS ORDERED: CEFTRIAXONE 1000 MG/VIAL ONE (17:15)
[2023-07-09] MEDS ORDERED: ACETAMINOPHEN 500 MG TAB PO PRN (17:41)
[2023-07-09 17:43] LABS: PT Prothrombin Time 12.8 SECONDS (9.5-12.5); PTT, Activated Partial Thromb 45.1 SECONDS (24.3-36.9); Protime INR 1.17
[2023-07-09 21:57] VITALS: BMI 46.7
[2023-07-09] MEDS: NA CHLORIDE 0.9% 1,000 ML IV SCH (22:43)
[2023-07-09] MEDS: Ciprofloxacin 200mg IV 200 MG/100 ML IV.SOLN. IV SCH (22:43)
[2023-07-09] MEDS: MORPHINE 2 MG/ML SYR IV PRN (22:45)
[2023-07-09] MEDS: ONDANSETRON 4 MG/2 ML VIAL IV PRN (22:45)
[2023-07-10] MEDS ORDERED: RIZATRIPTAN BENZOATE 10 MG PO PRN (06:39)
[2023-07-10 07:07] LABS: Absolute Basophils 0.1 K/uL (0-0.5); Absolute Eosinophils 0.2 K/uL (0-0.5); Absolute Lymphocytes (CBC) 2.2 K/uL (0.7-4.9); Absolute Monocytes 0.8 K/uL (0.1-1.3); Absolute Neutrophil 3.3 K/uL (1.8-8.0); Basophils % 0.8 % (0-1.3); Eosinophils % 3.5 % (0-4.4); Hematocrit 34.1 % (36.0-45.0); Hemoglobin 11.6 g/dL (12.0-15.0); Lymphocytes % 33.4 % (15.3-44.8); MCH 27.4 pg (27.0-35.0); MCHC 33.9 g/dL (32.0-36.0); MCV 80.8 fL (80-100); MPV 7.3 fL (7.6-11.3); Monocytes % 12.5 % (3.3-12.3); Neutrophils % 49.8 % (41.7-73.7); Platelets 254 thou/uL (152-406); RBC Red Blood Cell Count 4.23 M/uL (3.86-4.86); Red Cell Distribution Width 14.2 % (12.1-15.2)
[2023-07-10 07:09] LABS: Magnesium 2.2 mg/dL (1.6-2.4); Phosphorus 4.1 mg/dL (2.5-4.9)
[2023-07-10] MEDS: ENOXAPARIN 40 MG/0.4 ML SQ SCH (08:06)
[2023-07-10] MEDS: TOPIRAMATE 100 MG TAB PO SCH (08:07)
[2023-07-10] MEDS: CIPROFLOXACIN 400mg IV 400 MG/200 ML BAG IV SCH (10:18)
--- NOTE | 2023-07-10 15:11 | P.PN ---
Date of Service: 07/10/23 Subjective Afebrile OVN hemodynamically stable still with right sided abdominal pain no urinary symptoms ROS 10 point ROS as noted above, otherwise negative Physical Exam General: AAOx3, NAD HEENT: Atraumatic, Normocephalic, PERRLA Neck: Supple, 2+ carotid pulse no bruit, JVD not distended Respiratory: Clear to auscultation bilaterally, Normal air movement, Cardiovascular: Normal pulses, RRR, Normal S1 S2 present, no murmur noted Capillary refill: <2 Seconds Gastrointestinal: Normal bowel sounds, Soft and benign, Tenderness (right si ded), ND Musculoskeletal: No clubbing, No swelling, No contractures Integumentary: No breakdown, No significant lesion Neurological: Normal speech, Normal strength at 5/5 x4 extr, Normal tone Vitals Reviewed Problem list Acute left pyelonephritis UTI POA Febrile Right adnexal 5.4 cm cyst History of CVA (February 2023) History of Migraines Plan Acute left pyelonephritis UTI POA Febrile -Failed cefdinir outpatient -UA presents with negative nitrates, 500 leukocyte Estrace, RBC greater than 50, budding yeast, test negative -Rocephin and toradol given in ED -Blood cultures- NGTD -Ciprofloxacin -IV fluids -Antipyretics, antiemetics -CT abdomen pelvis reports "Multifocal areas of hypoenhancement in the left anterior renal cortex, concerning for pyelonephritis. No radiopaque calculi or evidence of obstruction. Incidentally noted right adnexal 5.4 cm cyst,, probably physiologic. Follow-up pelvic ultrasound in 6-10 weeks is recommended to ensure stability or resolution." -Ultrasound abdomen reports "The gallbladder demonstrates no gallstones. No per icholecystic fluid or gallbladder wall thickening. The common bile duct is normal measuring 3 mm. The liver demonstrates no findings of intrahepatic biliary dilatation" Right adnexal 5.4 cm cyst As seen on CT abd/pelvis Outpatient follow up with pelvic US in 6-10 weeks History of CVA (February 2023) No home medications at this time History of Migraines Continue home medications DVT PPx Lovenox Full code LOS 2 days Discharge Plan: Home Plan to discharge in: 24 hours
--- NOTE | 2023-07-11 09:38 | P.CNS ---
Date of Consult: 07/11/23 Reason for Consult: acute pyelonephritis Requesting Physician: micha rao Chief Complaint: Left pyelonephritis History of Present Illness: "Vianney Anand is a 22-year-old female with past medical history of cardiovascular accident (Feb 2023) and migraines, who presents to the ED with complaints of upper abdominal pain associated with nausea and fever that started 6 days ago. She was seen by her PCP 5 days ago and referred to the ED at which time patient went to [facility] ER and was diagnosed with a UTI. She presents to the ED today with outpatient treatment failure for urinary tract infection which has led to Left pyelonephritis." Allergies Latex, Natural Rubber Allergy (Verified 07/09/23 17:43) Home medications list reviewed: Yes Home Medications: Rizatriptan Benzoate [Rizatriptan] 10 mg PO PRN 07/09/23 Topiramate 50 mg PO BID 07/09/23 Ciprofloxacin HCl [Cipro] 500 mg PO BID #28 tab 07/11/23 - Past Medical/Surgical History -: Migraines -: CVA -: Tonsillectomy -: Knee -: [place] teeth - Social History Alcohol use: Yes CD- Drugs: No Caffeine use: Yes Place of Residence: Home Physical Examination Temp Pulse Resp BP Pulse Ox 97.1 F 70 18 102/52 L 99 07/11/23 04:00 07/11/23 04:00 07/11/23 06:35 07/11/23 04:00 07/11/23 06:35 General: Alert, In no apparent distress, Oriented x3 HEENT: Atraumatic, Normocephalic Respiratory: Clear to auscultation bilaterally, Normal air movement Cardiovascular: No edema, Regular rate/rhythm Gastrointestinal: Normal bowel sounds, Tenderness (mild lower abdominal/supra pubic) Integumentary: No rashes Neurological: Normal speech, Normal tone, Normal affect Laboratory data - Reviewed Microbiology data - Reviewed Imagings Data: - Reviewed Conclusions/Impression: Problem List Acute Pyelonephritis - Blood cultures: no growth to date - CT abdomen pelvis: "Multifocal areas of hypoenhancement in the left anterior renal cortex, concerning for pyelonephritis. No radiopaque calculi or evidence of obstruction. Incidentally noted right adnexal 5.4 cm cyst,, probably physiologic. Follow-up pelvic ultrasound in 6-10 weeks is recommended to ensure stability or resolution." - Afebrile Recommendations - Continue Ciprofloxacin PO x 14 days - Start on probiotic as well Plan of care discussed with patient and mother at bedside. Follow up with PCP in 1-2 weeks. Case discussed with Sajan Pang
--- NOTE | 2023-07-11 10:24 | P.DS ---
Admission Date: 07/09/23 Discharge Date: 07/13/23 Disposition: ROUTINE DISCHARGE Discharge Condition: FAIR Reason for Admission: Left pyelonephritis Brief History of Present Illness: Diagnosis Acute left pyelonephritis UTI POA Febrile Right adnexal 5.4 cm cyst History of CVA (February 2023) History of Migraines HPI 07/09/23 Vianney Anand is a 22-year-old female with past medical history of cardiovascul ar accident (Feb 2023) and migraines, who presents to the ED with complaints of upper abdominal pain associated with nausea and fever that started 6 days ago. She was seen by her PCP 5 days ago and referred to the ED at which time patient went to [facility] ER and was diagnosed with a UTI. She presents to the ED today with outpatient treatment failure for urinary tract infection which has led to Left pyelonephritis. Initial vitals BP 117 / 63; Pulse 81; Resp 16 S; Temp 97.9(O); Pulse Ox 100% on R/A Laboratory evaluation unremarkable, UA presents with negative nitrates, 500 leukocyte Estrace, RBC greater than 50, budding yeast, test negative. CT abdomen pelvis reports "Multifocal areas of hypoenhancement in the left anterior renal cortex, concerning for pyelonephritis. No radiopaque calculi or evidence of obstruction. Incidentally noted right adnexal 5.4 cm cyst,, probably physiologic. Follow-up pelvic ultrasound in 6-10 weeks is recommended to ensure stability or resolution." Ultrasound abdomen reports "The gallbladder demonstrates no gallstones. No pericholecystic fluid or gallbladder wall thickening. The common bile duct is normal measuring 3 mm. The liver demonstrates no findings of intrahepatic biliary dilatation" Vianney will be admitted to hospitalist service for further evaluation and treatment of left pyelonephritis with administartion of IV antibiotics. Hospital Course: Vianney Anand is a pleasant 22 year old female with a past medical history significant for cardiovascular accident (FEB 2023) and migraines who was admitted to the [facility] on 07/09/23 for acute Left pyelonephritis and UTI. Shekhar presented to the ED with complaints of nausea and fever for 6 days. She was seen by her PCP 5 days ago and referred to the ED at which time patient went to [facility] ER and was diagnosed with a UTI. She presents to the ED with outpatient treatment failure for urinary tract infection which has led to Left pyelonephritis. Infectious disease was consulted and recommended ciprofloxacin for 14 days. She has tolerated IV antibiotics, is afebrile, nausea has been relieved, tolerating p.o. diet, ambulating independently, and hemodynamically stable for discharge. She was educated about the right adnexal 5.4 cm cyst seen on the CT abdomen pelvis. She has a history of cysts and will be seeing her residential sales associate on discharge. On 07/11/23, Vianney was seen on morning rounds and deemed medically stable for discharge. Vianney was discharged with instructions to schedule follow-up appointments with PCP and residential sales associate. Vianney was provided prescriptions for ciprofloxacin. The patient was given the opportunity to ask questions and reported no further questions. Furthermore, all questions were answered to the best of my ability. A copy of this discharge summary will be sent to the above providers to facilitate continuity of care. Today, I personally spent 50 minutes with Vianney, of which greater than 50% of the time was spent in patient education, counseling, and coordination of care as described above. Physical Exam General: AAOx3, NAD, calm HEENT: Atraumatic, Normocephalic, PERRLA Neck: Supple, 2+ carotid pulse no bruit, JVD not distended Respiratory: Clear to auscultation bilaterally, Normal air movement, Cardiovascular: Regular rate and rhythm, S1 S2 present, no murmur noted Capillary refill: <2 Seconds Gastrointestinal: Normal bowel sounds, Soft and benign, nontender, ND Musculoskeletal: No clubbing, No swelling, No contractures, 2+ peripheral pulses Integumentary: No breakdown, No significant lesion Neurological: Normal speech, Normal strength at 5/5 x4 extr, Normal tone Vital Signs/Physical Exam: Temp Pulse Resp BP Pulse Ox 97 F 59 18 100/55 L 96 07/11/23 08:00 07/11/23 08:00 07/11/23 08:00 07/11/23 08:00 07/11/23 08:00 Laboratory Data at Discharge: WBC 6.60 thou/uL (4.3-10.9) 07/10/23 06:20 Hgb 11.6 g/dL (12.0-15.0) L 07/10/23 06:20 Hct 34.1 % (36.0-45.0) L 07/10/23 06:20 Plt Count 254 thou/uL (152-406) 07/10/23 06:20 PT 12.8 SECONDS (9.5-12.5) H 07/09/23 17:10 INR 1.17 07/09/23 17:10 APTT 45.1 SECONDS (24.3-36.9) H 07/09/23 17:10 Sodium 139 mEq/L (136-145) 07/10/23 06:20 Potassium 4.0 mEq/L (3.5-5.1) 07/10/23 06:20 BUN 8 mg/dL (7-18) 07/10/23 06:20 Creatinine 0.56 mg/dL (0.55-1.02) 07/10/23 06:20 Glucose 101 mg/dL (74-106) 07/10/23 06:20 Phosphorus 4.1 mg/dL (2.5-4.9) 07/10/23 06:20 Magnesium 2.2 mg/dL (1.6-2.4) 07/10/23 06:20 Total Bilirubin 0.3 mg/dL (0.2-1.0) 07/09/23 14:00 AST 12 U/L (15-37) L 07/09/23 14:00 ALT 19 U/L (13-56) 07/09/23 14:00 Alkaline Phosphatase 76 U/L (45-117) 07/09/23 14:00 Lipase 15 U/L (13-75) 07/09/23 14:00 Home Medications: Rizatriptan Benzoate [Rizatriptan] 10 mg PO PRN 07/09/23 Topiramate 50 mg PO BID 07/09/23 Ciprofloxacin HCl [Cipro] 500 mg PO BID #28 tab 07/11/23 New Medications: Ciprofloxacin HCl [Cipro] 500 mg PO BID #28 tab Physician Discharge Instructions: Please return to ED for evaluation if you develop fever while taking the antibiotic. Diet: Regular Activity: Ad key Followup: Veronique Amador [Primary Care Provider] - 1-2 Weeks (follow up ) Time spent managing pt's care (in minutes): 50
[2023-07-11 10:30] VITALS: BP 100/55; TEMP 97; O2SAT 96
--- NOTE | 2023-07-11 14:20 | EKG ---
Test Date: 2023-07-09 Test Time: 17:00:10 Pitch Flaker: GANESH MEASUREMENT RESULTS: Intervals: Rate: 59 FL: 136 QRSD: 104 QT: 456 QTc: 451 [place]: P: 28 FL: 136 QRS: 13 T: 5 INTERPRETIVE STATEMENTS: Sinus bradycardia with marked sinus arrhythmia Cannot rule out Anterior infarct, age undetermined Abnormal ECG Compared to ECG 03/26/2023 10:59:23 Myocardial infarct finding now present Sinus rhythm no longer present Electronically Signed On 07-11-23 14:14:13 WAREHOUSE DELIVERY DRIVER by Juvenal Garcia
== END 2023-07-11 10:02 | disposition home or self-care (01) ==
LOC: ER 13:17 → ERHOLD 17:22 → 4TH 18:28
PROVIDERS: ADMIT Internal Medicine; ATTEND Internal Medicine
DX: N10 Acute pyelonephritis (principal); N39.0 Urinary tract infection, site not specified; R50.9 Fever, unspecified; G43.909 Migraine, unspecified, not intractable, without status migrainosus; N83.291 Other ovarian cyst, right side; Z86.73 Personal history of transient ischemic attack (TIA), and cerebral infarction without residual deficits
CPT/HCPCS: 96365; 96361; 93005; 87040 ×2; 85025 ×2; 81001; 80048; 36415 ×2; 83735; 81025; 84100; 85610; 83605; 85730; 83690; 80053; 74177; 76705; 96375; 99285; 96366; Q9967; J1650; J2270 ×6; J0744 ×3; J2405 ×4; J7030 ×4; J0696; G0378

== ENCOUNTER → 2023-07-24 | Emergency (ER) | payer OTHER ==
[~2023-07-24] MED LIST changes: +FAMOTIDINE 20 MG/2 ML VIAL IV ONE; +KETOROLAC 30 MG/ML INJ ONE; +NA CHLORIDE 0.9% 1,000 ML ONE; +ONDANSETRON 4 MG/2 ML VIAL ONE; -PHENAZOPYRIDINE 100MG TAB PO ONE
[2023-07-24 20:23] LABS: Absolute Lymphocytes (CBC) 1.3 K/uL (0.7-4.9); Absolute Monocytes 0.4 K/uL (0.1-1.3); Absolute Neutrophil 2.8 K/uL (1.8-8.0); Basophils % 0.5 % (0-1.3); Eosinophils % 0.5 % (0-4.4); Hematocrit 36.7 % (36.0-45.0); Hemoglobin 12.5 g/dL (12.0-15.0); Lymphocytes % 28.9 % (15.3-44.8); MCH 27.6 pg (27.0-35.0); MCV 81.2 fL (80-100); Monocytes % 8.1 % (3.3-12.3); Nucleated Red Blood Cells % 0.1 % (0-0); Platelets 245 thou/uL (152-406); RBC Red Blood Cell Count 4.51 M/uL (3.86-4.86); Red Cell Distribution Width 14.5 % (12.1-15.2)
[2023-07-24 20:38] LABS: Albumin 3.2 g/dL (3.4-5.0); Albumin/Globulin Ratio 0.9 (1.1-1.8); Anion Gap 10.3 mEq/L (5.0-15.0); Globulin 3.6 g/dL (2.3-3.5); Potassium 3.3 mEq/L (3.5-5.1); Protein, Total 6.8 g/dL (6.4-8.2)
[2023-07-24 20:52] LABS: Specific Gravity 1.023 (1.005-1.030)
[2023-07-24 21:09] LABS: Specific Gravity 1.023 (1.005-1.030); Urine Bacteria <20 /HPF (<20); Urine Bilirubin NEGATIVE (Negative); Urine Blood Negative (Negative); Urine Clarity Turbid (Clear); Urine Color Yellow (Yellow); Urine Culture Reflex Order NOT NEEDED; Urine Glucose NEGATIVE (Negative); Urine Ketones NEGATIVE (Negative); Urine Microscopic Reflex YN ORDER UMIC; Urine Mucus Slight /HPF (None Seen); Urine Nitrite NEGATIVE (Negative); Urine Protein TRACE (Negative); Urine RBC <5 /HPF (None Seen); Urine Urobilinogen Normal (Normal); Urine WBC <5 /HPF (<5)
--- NOTE | 2023-07-24 21:55 | RAD REPORT ---
EXAM DESCRIPTION: CT - Abdomen Pelvis W Contrast - 07/24/2023 9:41 pm CLINICAL HISTORY: Abdominal pain COMPARISON: July 09, 2023 TECHNIQUE: Computed axial tomography of the abdomen pelvis was obtained. 100 cc Isovue-300 was admin istered intravenously. Oral contrast was not requested which limits evaluation of bowel and appendix All CT scans are performed using dose optimization technique as appropriate and may include automated exposure control or mA/KV adjustment according to patient size. FINDINGS: The liver, pancreas, adrenal and right kidney appear unremarkable Spleen 14 centimeters The left pyelonephritis appears almost completely resolved. The right ovarian cyst has resolved. IUD in place. There is no evidence of diverticulitis. Fluid in nondilated bowel Normal appendix Tiny umbilical hernia IMPRESSION: Fluid in nondilated bowel may indicate an enteritis Mild splenomegaly
--- NOTE | 2023-07-24 21:55 | RAD REPORT ---
EXAM DESCRIPTION: US - Abdomen Exam Limited - 07/24/2023 9:07 pm CLINICAL HISTORY: Abdominal pain. COMPARISON: July 08, 2023 FINDINGS: The gallbladder wall is not thickened. A gallstone is not seen. Small amount of gallbladder sludge The biliary tree is normal caliber. IMPRESSION: Small amount of gallbladder sludge
--- NOTE | 2023-07-24 22:03 | EDPHYS ---
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 Last tetanus immunization: up to date Pneumococcal vaccine is not up to date, Flu vaccine is up to date. - Social history:: Smoking status: Patient denies any tobacco usage or history of. Patient/guardian denies using alcohol, street drugs. Vital Signs: 19:45 BP 136 / 78; Pulse 100; Resp 20; Temp 99.4; Pulse Ox 97% on R/A; Weight 131.54 kg; as9 Height 5 ft. 6 in. ; 20:00 BP 132 / 68; Pulse 99; Resp 20; Pulse Ox 97% on R/A; as9 19:45 Body Mass Index 46.81 (131.54 kg, 167.64 cm) as9 MDM: 19:42 Patient medically screened. kb 07/23 19:49 Order name: CBC with Diff; Complete Time: 20:28 kb 07/23 19:49 Order name: CMP; Complete Time: 20:40 kb 07/23 19:49 Order name: Lipase; Complete Time: 20:40 kb 07/23 19:49 Order name: Test, Urine; Complete Time: 20:52 kb 07/23 19:49 Order name: Urinalysis w/ reflexes; Complete Time: 21:13 kb 07/23 19:49 Order name: Abdomen Limited US; Complete Time: 21:56 kb 07/23 19:49 Order name: CT Abd/Pelvis - IV Contrast Only; Complete Time: 21:56 kb 07/23 19:49 Order name: IV Saline Lock; Complete Time: 20:15 kb 07/23 19:49 Order name: Labs collected and sent; Complete Time: 20:15 kb Administered Medications: 20:10 Drug: NS 0.9% IV 1000 ml IV at 1 bolus Per protocol; 1000 mL bolus Route: IV; Rate: 1 ha1 bolus; Site: right antecubital; 21:30 Follow up: Response: No adverse reaction; Marked relief of symptoms; IV Status: jb4 Completed infusion; IV Intake: 1000ml 20:12 Drug: Famotidine IVP 20 mg IVP once; dilute with 10 mL 0.9% NaCl; give over 2 minutes ha1 Route: IVP; Site: right antecubital; 22:23 Follow up: Response: No adverse reaction; Marked relief of symptoms jb4 20:14 Drug: Ondansetron IVP 4 mg IVP once; over 2 minutes Route: IVP; Site: right antecubital;ha1 22:23 Follow up: Response: No adverse reaction; Marked relief of symptoms jb4 20:16 Drug: TORadol - Ketorolac IVP 15 mg IVP once Route: IVP; Site: right antecubital; ha1 22:23 Follow up: Response: No adverse reaction; Marked relief of symptoms jb4 Disposition Summary: 07/24/23 22:02 Discharge Ordered Notes: Location: Home kb Condition: Stable kb Diagnosis - Enteritis kb Followup: kb - With: Emergency Department - When: As needed - Reason: Worsening of condition Followup: kb - With: Private Physician - When: 2 - 3 days - Reason: Recheck today's complaints, Continuance of care, Re-evaluation by your physician Discharge Instructions: - Discharge Summary Sheet kb - Viral Gastroenteritis, Adult, Heat-yl-Jehu kb Forms: - Medication Reconciliation Form kb - Thank You Letter kb - Antibiotic Education kb - Prescription Opioid Use kb - Patient Portal Instructions kb - Leadership Thank You Letter kb Prescriptions: - ondansetron 4 mg Oral Tablet,disintegrating - take 1 tablet ORAL route every 6 hours As needed; 12 tablet; Refills: 0, kb Product Selection Permitted Signatures: Dispatcher [employer] Diana Vieira FNP-C FNP-Mari aEugenia Ortiz, RN RN ha1 Vito Rosado RN RN as9 Jacoby Pelayo RN jb4
--- NOTE | 2023-07-24 22:03 | ER ---
Nurse's Notes [facility] Name: Vianney Anand Age: 22 yrs Sex: Female : 2000 Arrival Date: 07/24/2023 Time: 19:36 Bed 8 Private MD: MATHEW MONREAL Diagnosis: Enteritis Presentation: 07/23 19:45 Chief complaint: Patient states: abdominal pain that started 3 weeks ago, fever started as9 last night and vomiting and diarrhea tonight. 19:45 Method Of Arrival: Ambulatory as9 19:45 Coronavirus screen: Vaccine status: Patient reports being unvaccinated. Ebola Screen: as9 No symptoms or risks identified at this time. Initial Sepsis Screen: Does the patient meet any 2 criteria? No. Patient's initial sepsis screen is negative. Does the patient have a suspected source of infection? No. Patient's initial sepsis screen is negative. Risk Assessment: Do you want to hurt yourself or someone else? Patient reports no desire to harm self or others. Onset of symptoms was July 24, 2023. 19:45 Acuity: CAMRYN 3 as9 Triage Assessment: 19:45 General: Appears in no apparent distress. comfortable, well groomed, Behavior is calm, as9 cooperative, appropriate for age. Pain: Complains of pain in abdomen Pain currently is 6 out of 10 on a pain scale. EENT: No signs and/or symptoms were reported regarding the EENT system. Neuro: Level of Consciousness is awake, alert, obeys commands, Oriented to person, place, time, situation, Appropriate for age. Cardiovascular: Capillary refill < 3 seconds Patient's skin is warm and dry. Respiratory: Airway is patent Respiratory effort is even, unlabored, Respiratory pattern is regular, symmetrical. GI: Abdomen is round non-distended. : No signs and/or symptoms were reported regarding the genitourinary system. Derm: Skin Skin is pink, warm \T\ dry. Musculoskeletal: Circulation, motion, and sensation intact. Range of motion: intact in all extremities. [employer]: 20:21 LMP 07/19/2023, unknown as9 Historical: - Allergies: 19:45 Latex; as9 - PMHx: 19:45 Cerebrovascular accident; as9 - PSHx: 19:45 knee; Tonsillectomy; wisdom teeth; as9 - Immunization history:: Client reports having NOT received the Covid vaccine. Last tetanus immunization: up to date Pneumococcal vaccine is not up to date, Flu vaccine is up to date. - Social history:: Smoking status: Patient denies any tobacco usage or history of. Patient/guardian denies using alcohol, street drugs. Screenin:20 [facility] ED Fall Risk Assessment (Adult) History of falling in the last 3 months, as9 including since admission No falls in past 3 months (0 pts) Confusion or Disorientation No (0 pts) Intoxicated or Sedated No (0 pts) Impaired Gait No (0 pts) Mobility Assist Device Used No (0 pt) Altered Elimination No (0 pt) Score/Fall Risk Level 0 - 2 = Low Risk. Abuse screen: Denies threats or abuse. Nutritional screening: No deficits noted. Tuberculosis screening: No symptoms or risk factors identified. Assessment: 20:21 GI: Bowel sounds present X 4 quads. Abd is soft and non tender Reports diarrhea. as9 22:20 Reassessment: Patient appears in no apparent distress at this time. Patient and/or jb4 family updated on plan of care and expected duration. Pain level reassessed. Patient is alert, oriented x 3, equal unlabored respirations, skin warm/dry/pink. Patient states feeling better. Vital Signs: 19:45 BP 136 / 78; Pulse 100; Resp 20; Temp 99.4; Pulse Ox 97% on R/A; Weight 131.54 kg; as9 Height 5 ft. 6 in. ; 20:00 BP 132 / 68; Pulse 99; Resp 20; Pulse Ox 97% on R/A; as9 19:45 Body Mass Index 46.81 (131.54 kg, 167.64 cm) as9 ED Course: 19:40 Patient arrived in ED. es 19:42 [facility] Castro [facility]C [facility] kb 19:42 Bill Buitrago MD is Attending Physician. kb 19:56 MATHEW MONREAL is Private Physician. es 20:15 Triage completed. as9 20:16 CBC with Diff Sent. ha1 20:16 CMP Sent. ha1 20:16 Lipase Sent. ha1 20:19 Inserted saline lock: 20 gauge in right forearm, using aseptic technique. as9 20:21 Arm band placed on right wrist. as9 20:21 Patient has correct armband on for positive identification. Placed in gown. Bed in low as9 position. Call light in reach. Side rails up X 1. 21:09 Abdomen Limited US In Process Unspecified. EDMS 21:49 CT Abd/Pelvis - IV Contrast Only In Process Unspecified. EDMS 22:20 No provider procedures requiring assistance completed. IV discontinued, intact, jb4 bleeding controlled, No redness/swelling at site. Pressure dressing applied. 22:20 Provided Education on: discharge instructions. jb4 Administered Medications: 20:10 Drug: NS 0.9% IV 1000 ml IV at 1 bolus Per protocol; 1000 mL bolus Route: IV; Rate: 1 ha1 bolus; Site: right antecubital; 21:30 Follow up: Response: No adverse reaction; Marked relief of symptoms; IV Status: jb4 Completed infusion; IV Intake: 1000ml 20:12 Drug: Famotidine IVP 20 mg IVP once; dilute with 10 mL 0.9% NaCl; give over 2 minutes ha1 Route: IVP; Site: right antecubital; 22:23 Follow up: Response: No adverse reaction; Marked relief of symptoms jb4 20:14 Drug: Ondansetron IVP 4 mg IVP once; over 2 minutes Route: IVP; Site: right antecubital;ha1 22:23 Follow up: Response: No adverse reaction; Marked relief of symptoms jb4 20:16 Drug: TORadol - Ketorolac IVP 15 mg IVP once Route: IVP; Site: right antecubital; ha1 22:23 Follow up: Response: No adverse reaction; Marked relief of symptoms jb4 Medication: 20:21 VIS not applicable for this client. as9 Intake: 21:30 IV: 1000ml; Total: 1000ml. jb4 Outcome: 22:02 Discharge ordered by MD. longo 22:20 Discharged to home ambulatory, with family, jb4 22:20 Condition: stable 22:20 Discharge instructions given to patient, Instructed on discharge instructions, follow up and referral plans. medication usage, Demonstrated understanding of instructions, follow-up care, medications, Prescriptions given X 1, 22:24 Patient left the ED. jb4 Signatures: Dispatcher [employer] EDWV Diana Castro, JOSÉ DINERO-Ashlyn Fuentes James RN RN jb4 Maria Eugenia Alston RN RN 1 Vito Rosado RN RN as9 Corrections: (The following items were deleted from the chart) 20:28 19:45 Chief complaint: Patient states: abdominal pain that started 3 weeks ago, fever as9 started last night and vomiting tonight. as9
[2023-07-24 22:43] VITALS: BP 132/68; TEMP 99.4; O2SAT 97
== END ==
LOC: ER 19:36
DX: K52.9 Noninfective gastroenteritis and colitis, unspecified (principal); Z28.310 Unvaccinated for COVID-19; Z91.040 Latex allergy status
CPT/HCPCS: 85025; 81001; 36415; 81025; 83690; 80053; 74177; 76705; Q9967; J2405; J7030

== ENCOUNTER 2023-10-10 20:21 | Emergency (ER) | payer OTHER ==
[2023-10-10 20:54] LABS: Absolute Basophils 0.1 K/uL (0-0.5); Absolute Eosinophils 0.2 K/uL (0-0.5); Absolute Lymphocytes (CBC) 3.3 K/uL (0.7-4.9); Absolute Monocytes 0.7 K/uL (0.1-1.3); Absolute Neutrophil 5.1 K/uL (1.8-8.0); Basophils % 0.6 % (0-1.3); Eosinophils % 1.7 % (0-4.4); Hematocrit 40.2 % (36.0-45.0); Hemoglobin 13.5 g/dL (12.0-15.0); Lymphocytes % 35.9 % (15.3-44.8); MCH 27.2 pg (27.0-35.0); MCHC 33.6 g/dL (32.0-36.0); MPV 7.3 fL (7.6-11.3); Monocytes % 7.2 % (3.3-12.3); Neutrophils % 54.6 % (41.7-73.7); Platelets 319 thou/uL (152-406); RBC Red Blood Cell Count 4.96 M/uL (3.86-4.86); Red Cell Distribution Width 13.9 % (12.1-15.2)
[2023-10-10] MEDS ORDERED: TENECTEPLASE 50 MG/10 ML VIAL IV ONE (20:59)
--- NOTE | 2023-10-10 20:59 | RAD REPORT ---
EXAM DESCRIPTION: CT - Ct Stroke Brain Wo Cont - 10/10/2023 8:33 pm CLINICAL HISTORY: STROKE ALERT COMPARISON: Head Brain Wo Cont dated 03/26/2023 TECHNIQUE: Noncontrast head CT images were obtained without IV contrast. Multiplanar reformats were generated and reviewed. All CT scans are performed using dose optimization technique as appropriate and may include automated exposure control or mA/KV adjustment according to patient size. FINDINGS: No intracranial hemorrhage, mass, or edema. Midline structures are unremarkable. Normal ventricular caliber for age. Pham-white matter differentiation is preserved, without evidence of acute infarct. No abnormal extra- axial fluid collections. Mastoid air cells and visualized portions of the paranasal sinuses are clear. No acute bony findings. IMPRESSION: No evidence of an acute intracranial process. The findings were communicated to Dr. Mazariegos On 10/10/2023 at 20:48 hours.
[2023-10-10 21:01] LABS: PT Prothrombin Time 11.7 SECONDS (9.5-12.5); PTT, Activated Partial Thromb 44.8 SECONDS (24.3-36.9); Protime INR 1.07
[2023-10-10 21:15] LABS: ALT/SGPT 19 U/L (13-56); Albumin 3.7 g/dL (3.4-5.0); Alkaline Phosphatase 88 U/L (45-117); Anion Gap 7.9 mEq/L (5.0-15.0); BUN Blood Urea Nitrogen 5 mg/dL (7-18); Bicarbonate 28 mEq/L (21-32); Bilirubin Direct 0.2 mg/dL (0-0.2); Bilirubin Indirect, Calculated 0.4 mg/dL (0.2-0.8); Bilirubin Total 0.6 mg/dL (0.2-1.0); Globulin 3.7 g/dL (2.3-3.5); Glomerular Filtration Rate 120 ml/min (=/>90); Glucose Level 90 mg/dL (74-106); Magnesium 2.1 mg/dL (1.6-2.4); Potassium 3.9 mEq/L (3.5-5.1); Protein, Total 7.4 g/dL (6.4-8.2); Sodium Level 137 mEq/L (136-145)
[2023-10-10 21:16] LABS: AST/SGOT < 10 U/L (15-37); Troponin High Sensitivity < 3.0 pg/mL (<58.9)
--- NOTE | 2023-10-10 21:52 | RAD REPORT ---
[facility] CLINICAL HISTORY: CHEST PAIN COMPARISON: Chest Single View dated 03/26/2023 TECHNIQUE: Portable AP view of the chest. FINDINGS: Decreased inspiratory effort limits evaluation. Central interstitial prominence. The lungs are otherwise clear. No pneumothorax or effusion. The cardiomediastinal contours are unremarkable. IMPRESSION: Central interstitial prominence, which may reflect mild central congestion. Decreased in spiratory effort limits evaluation.
[2023-10-10] MEDS ORDERED: ONDANSETRON 4 MG/2 ML VIAL ONE (22:20)
[2023-10-10] MEDS ORDERED: MORPHINE 4 MG/ML SYR ONE (22:21)
--- NOTE | 2023-10-10 23:11 | RAD REPORT ---
EXAM DESCRIPTION: CT - Neck Angio - 10/10/2023 10:09 pm CLINICAL HISTORY: Stroke allert COMPARISON: Head angio dated 10/10/2023 TECHNIQUE: Axial CT angiography images of the neck was performed with multiplanar and maximum intens ity projection reconstructions. Images performed following intravenous administration of iodinated c ontrast. All CT scans are performed using dose optimization technique as appropriate and may include automated exposure control or mA/KV adjustment according to patient size. Quantification of carotid stenosis, if any, is performed according to NASCET criteria. FINDINGS: A left aortic arch is identified with normal three vessel configuration of the great vesse ls. No significant flow abnormality is seen of the common carotid bilaterally. No significant stenosis is identified involving the cervical segments of both internal carotid arteri es. Normal flow is seen within both vertebral arteries. IMPRESSION: No significant flow abnormality of the neck vessels is identified. CAROTID STENOSIS REFERENCE USING NASCET CRITERIA: % ICA stenosis = (1 - narrowest ICA diameter/diameter of distal cervical ICA) x 100. Mild - <50% stenosis. Moderate - 50-69% stenosis. Severe - 70-94% stenosis. Near occlusion - 95-99% stenosis. Occluded - 100% stenosis.
--- NOTE | 2023-10-10 23:14 | RAD REPORT ---
EXAM DESCRIPTION: CT - Head angio - 10/10/2023 10:09 pm CLINICAL HISTORY: STROKE ALERT COMPARISON: Ct Stroke Brain Wo Cont dated 10/10/2023; Head Brain Wo Cont dated 03/26/2023 TECHNIQUE: Axial CT angiography images of the head was performed with multiplanar and maximum intens ity projection reconstructions. Images performed following intravenous administration of iodinated c ontrast. All CT scans are performed using dose optimization technique as appropriate and may include automated exposure control or mA/KV adjustment according to patient size. FINDINGS: No evidence of large vessel occlusion. No evidence of aneurysm or dissection flap is detec jade. No flow-limiting stenosis or vascular malformation identified. Antegrade flow is seen in the vertebral arteries. The vertebral arteries are codominant. The visualized dural venous sinuses are grossly patent. IMPRESSION: No evidence of large vessel occlusion or flow-limiting stenosis.
--- NOTE | 2023-10-10 23:55 | EDPHYS ---
Physician Documentation [facility] Name: Vianney Anand Age: 22 yrs Sex: Female : 2000 Arrival Date: 10/10/2023 Time: 20:21 Bed 8 Private MD: ED Physician Melvin Mazariegos HPI: 10/09 20:42 This 22 yrs old Female presents to ER via Wheelchair with complaints of High sp4 Blood Pressure, S/S of Possible Stroke. 20:42 22-year-old female presents with acute right-sided weakness associated with the sp4 right-sided numbness. Patient reports history of CVA 4 months ago with the [facility] to [place]. Patient reports associated slurring of the speech. . 20:42 Last known well at 7:40 PM today. Patient patient reports all symptoms have begun at sp4 7:40 PM today. Historical: - Allergies: 20:22 Latex; kc6 - PMHx: 20:22 Cerebrovascular accident; kc6 - PSHx: 20:22 Tonsillectomy; wisdom teeth; knee; kc6 - Immunization history:: Adult Immunizations up to date. - Infectious Disease History:: Denies. - Social history:: Smoking status: Patient denies any tobacco usage or history of. - Family history:: not pertinent. ROS: 20:42 Constitutional: Negative for fever, chills, and weight loss, positive right-sided sp4 weakness right-sided numbness positive slurring of the speech. 20:42 All other systems are negative, Exam: 20:42 Constitutional: This is a well developed, well nourished patient who is awake, alert, sp4 and in no acute distress. Head/Face: Normocephalic, atraumatic. Eyes: Pupils equal round and reactive to light, extra-ocular motions intact. Lids and lashes normal. Conjunctiva and sclera are not injected. Cornea within normal limits. Periorbital areas with no swelling, redness, or edema. ENT: Nares patent. No nasal discharge, no septal abnormalities noted. Tympanic membranes are normal and external auditory canals are clear. Oropharynx with no redness, swelling, or masses, exudates, or evidence of obstruction, uvula midline. Mucous membranes moist. Neck: Trachea midline, no thyromegaly or masses palpated, and no cervical lymphadenopathy. Supple, full range of motion without nuchal rigidity, or vertebral point tenderness. Chest/axilla: Normal chest wall appearance and motion. Nontender with no deformity. No lesions are appreciated. Cardiovascular: Regular rate and rhythm with a normal S1 and S2. No gallops, murmurs, or rubs. Normal PMI, no JVD. No pulse deficits. Respiratory: Lungs have equal breath sounds bilaterally, clear to auscultation and percussion. No rales, rhonchi or wheezes noted. No increased work of breathing, no retractions or nasal flaring. Abdomen/GI: Soft, with normal bowel sounds. No distension or tympany. No guarding or rebound. No evidence of tenderness throughout. Back: No spinal tenderness. No costovertebral tenderness. Skin: Warm, dry with normal turgor. Normal color with no rashes, no lesions, and no evidence of cellulitis. MS/ Extremity: Pulses equal, no cyanosis. Intact peripheral pulses, intact intact vascular status Neuro: Awake and alert, GCS 15, oriented to person, place, time, and situation. Positive right-sided diminished sensation face right arm right leg, positive 4 out of 5 weakness right upper extremity right lower extremity, gait slow but normal. Coordination normal Psych: Awake, alert, with orientation to person, place and time. Behavior, mood, and affect are within normal limits Vital Signs: 20:22 BP 140 / 80; Pulse 89; Resp 18 S; Pulse Ox 100% on R/A; kc6 20:58 Weight 140.61 kg (M); jb4 21:30 BP 129 / 78; Pulse 103; Resp 19; Pulse Ox 100% on R/A; jb4 22:15 BP 121 / 73; Pulse 97; Resp 20; Pulse Ox 100% on R/A; jb4 23:15 BP 102 / 66; Pulse 95; Resp 18; Pulse Ox 99% ; jb4 0607 00:00 BP 106 / 59; Pulse 92; Resp 16; Pulse Ox 96% on R/A; jb4 01:00 BP 104 / 55; Pulse 87; Resp 16; Pulse Ox 96% on R/A; jb4 NIH Stroke Scale Scores: 10/09 20:30 NIHSS Score: 4 jb4 20:42 NIHSS Score: 4 sp4 Hancock Coma Score: 20:42 Eye Response: spontaneous(4). Motor Response: obeys commands(6). Verbal Response: sp4 oriented(5). Total: 15. MDM: 20:28 Patient medically screened. sb4 20:46 ED course: Patient is 22-year-old female fairly young. Stroke however has objective sp4 findings of right-sided weakness and numbness. NIHSS score is 4 . . ED course: TNK ordered 20:40. 21:07 ED course: EXAM DESCRIPTION: CT - Ct Stroke Brain Wo Cont - 10/10/2023 8:33 pm CLINICAL sp4 HISTORY: STROKE ALERT COMPARISON: Head Brain Wo Cont dated 03/26/2023 TECHNIQUE: Noncontrast head CT images were obtained without IV contrast. Multiplanar reformats were generated and reviewed. All CT scans are performed using dose optimization technique as appropriate and may include automated exposure control or mA/KV adjustment according to patient size. FINDINGS: No intracranial hemorrhage, mass, or edema. Midline structures are unremarkable. Normal ventricular caliber for age. Pham-white matter differentiation is preserved, without evidence of acute infarct. No abnormal extra-axial fluid collections. Mastoid air cells and visualized portions of the paranasal sinuses are clear. No acute bony findings. IMPRESSION: No evidence of an acute intracranial process. The findings were communicated to Dr. Mazariegos On 10/10/2023 at 20:48 hours. . 23:52 ED course: EXAM DESCRIPTION: CT - Head angio - 10/10/2023 10:09 pm CLINICAL HISTORY: sp4 STROKE ALERT COMPARISON: Ct Stroke Brain Wo Cont dated 10/10/2023; Head Brain Wo Cont dated 03/26/2023 TECHNIQUE: Axial CT angiography images of the head was performed with multiplanar and maximum intensity projection reconstructions. Images performed following intravenous administration of iodinated contrast. All CT scans are performed using dose optimization technique as appropriate and may include automated exposure control or mA/KV adjustment according to patient size. FINDINGS: No evidence of large vessel occlusion. No evidence of aneurysm or dissection flap is detected. No flow-limiting stenosis or vascular malformation identified. Antegrade flow is seen in the vertebral arteries. The vertebral arteries are codominant. The visualized dural venous sinuses are grossly patent. IMPRESSION: No evidence of large vessel occlusion or flow-limiting stenosis. . ED course: EXAM DESCRIPTION: CT - Neck Angio - 10/10/2023 10:09 pm CLINICAL HISTORY: Stroke allert COMPARISON: Head angio dated 10/10/2023 TECHNIQUE: Axial CT angiography images of the neck was performed with multiplanar and maximum intensity projection reconstructions. Images performed following intravenous administration of iodinated contrast. All CT scans are performed using dose optimization technique as appropriate and may include automated exposure control or mA/KV adjustment according to patient size. Quantification of carotid stenosis, if any, is performed according to NASCET criteria. FINDINGS: A left aortic arch is identified with normal three vessel configuration of the great vessels. No significant flow abnormality is seen of the common carotid bilaterally. No significant stenosis is identified involving the cervical segments of both internal carotid arteries. Normal flow is seen within both vertebral arteries. IMPRESSION: No significant flow abnormality of the neck vessels is identified.. 23:52 ED course: EXAM DESCRIPTION: RADChest Single View10/10/2023 9:18 pm CLINICAL HISTORY: sp4 CHEST PAIN COMPARISON: Chest Single View dated 03/26/2023 TECHNIQUE: Portable AP view of the chest. FINDINGS: Decreased inspiratory effort limits evaluation. Central interstitial prominence. The lungs are otherwise clear. No pneumothorax or effusion. The cardiomediastinal contours are unremarkable. IMPRESSION: Central interstitial prominence, which may reflect mild central congestion. Decreased inspiratory effort limits evaluation. . 23:55 Differential diagnosis: hypertensive crisis, Malignant HTN, CVA, intracerebral sp4 hemorrhage, MS. Data reviewed: vital signs, nurses notes, lab test result(s), EKG, radiologic studies. ED course: Patient was accepted to [facility] neuro ICU. Condition is stable. 10/09 20:27 Order name: Basic Metabolic Panel; Complete Time: 23:12 sb4 10/09 20:27 Order name: CBC with Diff; Complete Time: 23:12 sb4 10/09 20:27 Order name: Hepatic Function; Complete Time: 23:12 sb4 10/09 20:27 Order name: High Sensitivity Troponin; Complete Time: 23:12 sb4 10/09 20:27 Order name: Magnesium; Complete Time: 23:12 sb4 10/09 20:27 Order name: Protime (+inr); Complete Time: 23:12 sb4 10/09 20:27 Order name: Ptt, Activated; Complete Time: 23:12 sb4 10/09 20:40 Order name: Test, Serum; Complete Time: 23:12 sp4 10/09 20:47 Order name: Glucose, Ancillary Testing; Complete Time: 23:12 EDMS 10/09 20:27 Order name: CT Stroke Brain w/o Contrast; Complete Time: 23:12 sb4 10/09 20:27 Order name: Stroke CXR 1 View; Complete Time: 23:12 sb4 10/09 20:41 Order name: CT Head Angio; Complete Time: 23:22 sp4 10/09 20:41 Order name: CT Neck Angio; Complete Time: 23:12 sp4 10/09 20:27 Order name: EKG; Complete Time: 20:27 sb4 10/09 20:27 Order name: Accucheck; Complete Time: 21:38 sb4 10/09 20:27 Order name: Cardiac monitoring; Complete Time: 21:38 sb4 10/09 20:27 Order name: EKG - Nurse/Tech; Complete Time: 21:38 sb4 10/09 20:27 Order name: IV Saline Lock; Complete Time: 21:38 sb4 10/09 20:27 Order name: Labs collected and sent; Complete Time: 21:38 sb4 10/09 20:27 Order name: NPO; Complete Time: 21:38 sb4 10/09 20:27 Order name: O2 Per Protocol; Complete Time: 21:38 sb4 10/09 20:27 Order name: O2 Sat Monitoring; Complete Time: 21:38 sb4 10/09 20:27 Order name: Stroke Swallow Screen; Complete Time: 21:39 sb4 Administered Medications: 21:08 Drug: TNK FOR STROKE - Tenecteplase IV 0.25 mg/kg IV at per protocol once; MAX jb4 DOSE 25 mg, IVP over 5 seconds {Co-Signature: me1 (Nae Hamlin RN).} Route: IV; Rate: per protocol; Site: right antecubital; 22:30 Drug: morphine IVP or IV 4 mg IVP once over 4 mins Route: IVP; Infused Over: 4 mins; jb4 Site: right antecubital; 22:30 Drug: Ondansetron IVP 4 mg IVP once; over 2 minutes Route: IVP; Site: right antecubital;jb4 10/10 00:35 Drug: morphine IVP or IV 4 mg IVP once over 4 mins Route: IVP; Infused Over: 4 mins; jb4 Site: right antecubital; 00:35 Drug: metoCLOPramide IVP 10 mg IVP once; over 1 to 2 minutes Route: IVP; Site: right jb4 antecubital; Disposition Summary: 10/10/23 23:55 Transfer Ordered Notes: Transfer Location: [facility] sp4 Reason: Higher level of care sp4 Condition: Stable sp4 Problem: new sp4 Symptoms: have improved sp4 Accepting Physician: [facility] Neurology Attending MD(10/11/23 01:50) jb4 Diagnosis - Acute CVA, right-sided hemiparesis sp4 Forms: - Medication Reconciliation Form sp4 - SBAR form sp4 Critical care time excluding procedures: 10/09 23:55 Critical care time: Bedside Care: 36 minutes, Consultation: 12 minutes, Family sp4 Intervention: 12 minutes. Total time: 60 minutes NIH Stroke Scale - NIH Stroke Score Date: 10/10/2023 Time: 20:30 Total Score = 4 10. Dysarthria (speech clarity - read or repeat words) - 0(Normal) 11. Extinction and Inattention (visual/tactile/auditory/spatial/personal) - 0(No abnormality) 1a. Level of Consciousness (LOC) - 0(Alert) 1b. Level of Consciousness (LOC) (Month \T\ Age) - 0(Both) 1c. LOC Commands (Open \T\ Closes Eyes/Senior Net Web Developer) - 0(Both) 2. Best Gaze (Lateral Gaze Paresis) - 0(Normal) 3. Visual Field Loss - 0(No visual loss) 4. Facial Palsy - 1(Minor Paralysis) 5a. Left Arm: Motor (10-second hold) - 0(No drift) 5b. Right Arm: Motor (10-second hold) - 1(Drift) 6a. Left Leg: Motor (5-second hold - always test supine) - 0(No drift) 6b. Right Leg: Motor (5-second hold - always test supine) - 1(Drift) 7. Limb Ataxia (finger/nose \T\ heel/albert - test with eyes open) - 0(Absent) 8. Sensory Loss (pinprick arms/legs/face) - 1(Mild to moderate loss) 9. Best Language: Aphasia (description/naming/reading) - 0(No aphasia) Initials: jbOscar NIH Stroke Scale - NIH Stroke Score Date: 10/10/2023 Time: 20:42 Total Score = 4 10. Dysarthria (speech clarity - read or repeat words) - 0(Normal) 11. Extinction and Inattention (visual/tactile/auditory/spatial/personal) - 0(No abnormality) 1a. Level of Consciousness (LOC) - 0(Alert) 1b. Level of Consciousness (LOC) (Month \T\ Age) - 0(Both) 1c. LOC Commands (Open \T\ Closes Eyes/Senior Net Web Developer) - 0(Both) 2. Best Gaze (Lateral Gaze Paresis) - 0(Normal) 3. Visual Field Loss - 0(No visual loss) 4. Facial Palsy - 1(Minor Paralysis) 5a. Left Arm: Motor (10-second hold) - 0(No drift) 5b. Right Arm: Motor (10-second hold) - 1(Drift) 6a. Left Leg: Motor (5-second hold - always test supine) - 0(No drift) 6b. Right Leg: Motor (5-second hold - always test supine) - 1(Drift) 7. Limb Ataxia (finger/nose \T\ heel/albert - test with eyes open) - 0(Absent) 8. Sensory Loss (pinprick arms/legs/face) - 1(Mild to moderate loss) 9. Best Language: Aphasia (description/naming/reading) - 0(No aphasia) Initials: kim Signatures: Dispatcher [employer] Jacoby Gaspar RN RN jb4 Chloe Lamas RN RN [email or web address] Moon Dyer PAHilda PAMelvin Vivar MD MD sp4 Nae Hamlin RN [email or web address] Corrections: (The following items were deleted from the chart) 10/10 00:28 10/09 20:27 TEST, SERUM+[id number].[id number] ordered. [facility] 10/10 01:50 10/09 23:55 [facility] Neurology Attending MD alvarez [email or web address]
--- NOTE | 2023-10-10 23:55 | ER ---
Nurse's Notes [facility] Name: Vianney Anand Age: 22 yrs Sex: Female : 2000 Arrival Date: 10/10/2023 Time: 20:21 Bed 8 Private MD: Diagnosis: Acute CVA, right-sided hemiparesis Presentation: 10/09 20:22 Chief complaint: Spouse and/or significant other states: high blood pressure, right arm kc6 numbness and slurred speech that started today at 1950. states she was life flighted 4 months ago for a stroke. code stroke called, pt taken to CT via wheelchair. 20:22 Coronavirus screen: At this time, the client does not indicate any symptoms associated kc6 with coronavirus-19. Ebola Screen: No symptoms or risks identified at this time. Initial Sepsis Screen: Does the patient meet any 2 criteria? No. Patient's initial sepsis screen is negative. Does the patient have a suspected source of infection? No. Patient's initial sepsis screen is negative. Risk Assessment: Do you want to hurt yourself or someone else? Patient reports no desire to harm self or others. Onset of symptoms was October 10, 2023 at 19:50. 20:22 Method Of Arrival: Wheelchair kc6 20:22 Acuity: CAMRYN 2 kc6 Triage Assessment: 20:22 General: Appears in no apparent distress. comfortable, well groomed, well developed, kc6 Behavior is calm, cooperative, appropriate for age. Pain: Denies pain. 20:22 EENT: No signs and/or symptoms were reported regarding the EENT system. 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 Weakness in right hand(s) arm(s) Gait is unsteady, Speech is slurred, Facial symmetry appears normal, Facial symmetry: tongue is midline, Pupils are PERRLA, Numbness in right hand and right arm. 20:22 Cardiovascular: Capillary refill < 3 seconds. Respiratory: Airway is patent Trachea kc6 midline Respiratory effort is even, unlabored, Respiratory pattern is regular, symmetrical. GI: No signs and/or symptoms were reported involving the gastrointestinal system. : No signs and/or symptoms were reported regarding the genitourinary system. Derm: No signs and/or symptoms reported regarding the dermatologic system. Skin is intact, is healthy with good turgor, Skin is pink, warm \T\ dry. Musculoskeletal: No signs and/or symptoms reported regarding the musculoskeletal system. Circulation, motion, and sensation intact. Capillary refill < 3 seconds, Range of motion: intact in all extremities. Historical: - Allergies: 20:22 Latex; kc6 - PMHx: 20:22 Cerebrovascular accident; kc6 - PSHx: 20:22 Tonsillectomy; wisdom teeth; knee; kc6 - Immunization history:: Adult Immunizations up to date. - Infectious Disease History:: Denies. - Social history:: Smoking status: Patient denies any tobacco usage or history of. - Family history:: not pertinent. Screenin:22 [facility] ED Fall Risk Assessment (Adult) History of falling in the last 3 months, kc6 including since admission No falls in past 3 months (0 pts) Confusion or Disorientation No (0 pts) Intoxicated or Sedated No (0 pts) Impaired Gait No (0 pts) Mobility Assist Device Used No (0 pt) Altered Elimination No (0 pt) Score/Fall Risk Level 0 - 2 = Low Risk. Abuse screen: Denies threats or abuse. Denies injuries from another. Nutritional screening: No deficits noted. Tuberculosis screening: No symptoms or risk factors identified. Assessment: 20:30 TNKase (Tenecteplase) Screening: Indications: Definite evidence of stroke, ischemic, jb4 embolic, or hypertensive: Yes. Treatment will start within 4.5 hours onset of symptoms: Yes. No evidence of intracranial hemorrhage or CT of head and no evidence of peripheral hemorrhage or recent CVA: Yes. Consent for thrombolytic therapy: Yes. 20:30 VAN Scoring: Arm Drift: Minor drift Visual Disturbance: No visual disturbance noted. jb4 Aphasia: No aphasia noted. Neglect: No neglect noted. Norma Swallow Protocol Brief Cognitive Screen What is your name? Normal, Where are you right now? Normal, What year is it? Normal. Oral Mechanism Examination Facial Symmetry: Normal, Motion: Normal, Lip Closure: Normal, 3 oz Water Swallow Challenge: Pt able to drink all water without stopping, coughing, choking or throat clearing: Result: MATTHIAS RIVERA Notified: Melvin Mazariegos MD. 20:30 General: Appears in no apparent distress. comfortable, Behavior is calm, cooperative, jb4 appropriate for age. Pain: Denies pain. Neuro: Level of Consciousness is awake, alert, obeys commands, Oriented to person, place, time, situation, Weakness in right hand(s) arm(s) leg(s) foot/feet Facial droop on right, Pupils are PERRLA, Reports numbness in right side of head, right arm and right leg weakness in right arm and right leg. Cardiovascular: Patient's skin is warm and dry. Respiratory: Airway is patent is compromised Respiratory effort is even, unlabored, Respiratory pattern is regular, symmetrical. GI: No signs and/or symptoms were reported involving the gastrointestinal system. : No signs and/or symptoms were reported regarding the genitourinary system. EENT: No signs and/or symptoms were reported regarding the EENT system. Derm: Skin is intact, Skin is pink, warm \T\ dry. Musculoskeletal: Range of motion: limited in right shoulder and right hip. 20:35 Reassessment: pt brought back from CT via wheelchair. Dr. Mazariegos at bedside speaking kc6 with patient. 21:30 Reassessment: Patient appears in no apparent distress at this time. Patient and/or jb4 family updated on plan of care and expected duration. Pain level reassessed. Patient is alert, oriented x 3, equal unlabored respirations, skin warm/dry/pink. 22:28 Reassessment: Patient appears in no apparent distress at this time. Patient and/or jb4 family updated on plan of care and expected duration. Pain level reassessed. Patient is alert, oriented x 3, equal unlabored respirations, skin warm/dry/pink. Pt reports headache and bleeding gums. ER Physician notified. 23:30 Reassessment: Patient appears in no apparent distress at this time. Patient and/or jb4 family updated on plan of care and expected duration. Pain level reassessed. Patient is alert, oriented x 3, equal unlabored respirations, skin warm/dry/pink. 10/10 00:30 Reassessment: Patient appears in no apparent distress at this time. Patient and/or jb4 family updated on plan of care and expected duration. Pain level reassessed. Patient is alert, oriented x 3, equal unlabored respirations, skin warm/dry/pink. 01:30 Reassessment: Patient appears in no apparent distress at this time. Patient and/or jb4 family updated on plan of care and expected duration. Pain level reassessed. Patient is alert, oriented x 3, equal unlabored respirations, skin warm/dry/pink. Vital Signs: 10/09 20:22 BP 140 / 80; Pulse 89; Resp 18 S; Pulse Ox 100% on R/A; kc6 20:58 Weight 140.61 kg (M); jb4 21:30 BP 129 / 78; Pulse 103; Resp 19; Pulse Ox 100% on R/A; jb4 22:15 BP 121 / 73; Pulse 97; Resp 20; Pulse Ox 100% on R/A; jb4 23:15 BP 102 / 66; Pulse 95; Resp 18; Pulse Ox 99% ; jb4 10/10 00:00 BP 106 / 59; Pulse 92; Resp 16; Pulse Ox 96% on R/A; jb4 01:00 BP 104 / 55; Pulse 87; Resp 16; Pulse Ox 96% on R/A; jb4 Kathy Coma Score: 10/09 20:42 Eye Response: spontaneous(4). Motor Response: obeys commands(6). Verbal Response: sp4 oriented(5). Total: 15. NIH Stroke Scale Scores: 20:30 NIHSS Score: 4 jb4 20:42 NIHSS Score: 4 sp4 ED Course: 20:22 Arm band placed on. kc6 20:25 Patient arrived in ED. ra3 20:26 [facility] sb4 20:26 Melvin Mazariegos MD is Attending Physician. sb4 20:30 Initial lab(s) drawn, by mn, sent to lab. Inserted saline lock: 18 gauge in right jb4 antecubital area, using aseptic technique. Blood collected. 20:32 Melvin Mazariegos MD is Attending Physician. sb4 20:34 CT Stroke Brain w/o Contrast In Process Unspecified. EDMS 20:37 Triage completed. kc6 21:10 Jacoby Pelayo, RN is Primary Nurse. jb4 21:20 Stroke CXR 1 View In Process Unspecified. EDMS 22:11 CT Head Angio In Process Unspecified. EDMS 22:11 CT Neck Angio In Process Unspecified. EDMS 23:35 initiated transfer with [facility]. [facility] 10/10 00:[address] [facility] icu bed [address]. Accept[address] Garces \T\[id number]. Admin approval given [facility] 1200. number for nurse to nurse report [phone]. 01:48 No provider procedures requiring assistance completed. Patient transferred, IV remains jb4 in place. Administered Medications: 10/09 21:08 Drug: TNK FOR STROKE - Tenecteplase IV 0.25 mg/kg IV at per protocol once; MAX jb4 DOSE 25 mg, IVP over 5 seconds {Co-Signature: me1 (Nae Hamlin RN).} Route: IV; Rate: per protocol; Site: right antecubital; 22:30 Drug: morphine IVP or IV 4 mg IVP once over 4 mins Route: IVP; Infused Over: 4 mins; jb4 Site: right antecubital; 22:30 Drug: Ondansetron IVP 4 mg IVP once; over 2 minutes Route: IVP; Site: right antecubital;jb4 10/10 00:35 Drug: morphine IVP or IV 4 mg IVP once over 4 mins Route: IVP; Infused Over: 4 mins; jb4 Site: right antecubital; 00:35 Drug: metoCLOPramide IVP 10 mg IVP once; over 1 to 2 minutes Route: IVP; Site: right jb4 antecubital; Outcome: 10/09 23:55 ER care complete, transfer ordered by MD. alvarez 10/10 01:49 Transferred by ground EMS to [facility], Transfer form completed. 4 X-rays sent w/ patient. Condition: stable Discharge instructions given to patient, family, Instructed on the need for transfer, Demonstrated understanding of instructions, 01:50 Patient left the ED. 4 NIH Stroke Scale - NIH Stroke Score Date: 10/10/2023 Time: 20:30 Total Score = 4 10. Dysarthria (speech clarity - read or repeat words) - 0(Normal) 11. Extinction and Inattention (visual/tactile/auditory/spatial/personal) - 0(No abnormality) 1a. Level of Consciousness (LOC) - 0(Alert) 1b. Level of Consciousness (LOC) (Month \T\ Age) - 0(Both) 1c. LOC Commands (Open \T\ Closes Eyes/Maori Physiotherapist) - 0(Both) 2. Best Gaze (Lateral Gaze Paresis) - 0(Normal) 3. Visual Field Loss - 0(No visual loss) 4. Facial Palsy - 1(Minor Paralysis) 5a. Left Arm: Motor (10-second hold) - 0(No drift) 5b. Right Arm: Motor (10-second hold) - 1(Drift) 6a. Left Leg: Motor (5-second hold - always test supine) - 0(No drift) 6b. Right Leg: Motor (5-second hold - always test supine) - 1(Drift) 7. Limb Ataxia (finger/nose \T\ heel/albert - test with eyes open) - 0(Absent) 8. Sensory Loss (pinprick arms/legs/face) - 1(Mild to moderate loss) 9. Best Language: Aphasia (description/naming/reading) - 0(No aphasia) Initials: jb4 NIH Stroke Scale - NIH Stroke Score Date: 10/10/2023 Time: 20:42 Total Score = 4 10. Dysarthria (speech clarity - read or repeat words) - 0(Normal) 11. Extinction and Inattention (visual/tactile/auditory/spatial/personal) - 0(No abnormality) 1a. Level of Consciousness (LOC) - 0(Alert) 1b. Level of Consciousness (LOC) (Month \T\ Age) - 0(Both) 1c. LOC Commands (Open \T\ Closes Eyes/Maori Physiotherapist) - 0(Both) 2. Best Gaze (Lateral Gaze Paresis) - 0(Normal) 3. Visual Field Loss - 0(No visual loss) 4. Facial Palsy - 1(Minor Paralysis) 5a. Left Arm: Motor (10-second hold) - 0(No drift) 5b. Right Arm: Motor (10-second hold) - 1(Drift) 6a. Left Leg: Motor (5-second hold - always test supine) - 0(No drift) 6b. Right Leg: Motor (5-second hold - always test supine) - 1(Drift) 7. Limb Ataxia (finger/nose \T\ heel/albert - test with eyes open) - 0(Absent) 8. Sensory Loss (pinprick arms/legs/face) - 1(Mild to moderate loss) 9. Best Language: Aphasia (description/naming/reading) - 0(No aphasia) Initials: sp4 Signatures: Dispatcher [employer] Jacoby Gaspar, RN RN jb4 Chika Claudio RN RN lg3 Chloe Lamas RN RN kc6 Moon Dyer, PAHilda PAHilda pitts4 Melvin Mazariegos MD MD sp4 Aby Ribera [facility] Vy Sigala ra3 Nae Hamlin RN me1 Corrections: (The following items were deleted from the chart) 10/09 20:39 20:22 Chief complaint: Spouse and/or significant other states: high blood kc6 pressure, right arm numbness and slurred speech that started today at 1950. states she was life flight 4 months ago for a stroke. code stroke called, pt taken to CT via wheelchair kc6 21:03 20:58 141.97 kg Measured; lg3 jb4 10/10 01:50 10/09 22:28 Reassessment: Patient appears in no apparent distress at this time. jb4 Patient and/or family updated on plan of care and expected duration. Pain level reassessed. Patient is alert, oriented x 3, equal unlabored respirations, skin warm/dry/pink. jb4
[2023-10-11] MEDS ORDERED: MORPHINE 4 MG/ML SYR ONE (00:22)
[2023-10-11] MEDS ORDERED: METOCLOPRAMIDE 10 MG/2mL INJ ONE (00:22)
[2023-10-11 02:24] VITALS: BP 104/55; O2SAT 96
--- NOTE | 2023-10-12 11:44 | EKG ---
Test Date: 2023-10-10 Test Time: 20:53:47 Process Manager: CAMILLE MEASUREMENT RESULTS: Intervals: Rate: 95 WV: 142 QRSD: 102 QT: 356 QTc: 447 Miller: P: 52 WV: 142 QRS: 80 T: 70 INTERPRETIVE STATEMENTS: Normal sinus rhythm Normal ECG Compared to ECG 07/09/2023 17:00:10 Sinus bradycardia no longer present Sinus arrhythmia no longer present Myocardial infarct finding no longer present Electronically Signed On 10-12-23 11:43:47 CDT by Timmy Sadler
== END 2023-10-11 01:50 | disposition short-term general hospital (02) ==
LOC: ER 20:21
DX: I63.9 Cerebral infarction, unspecified (principal); G81.91 Hemiplegia, unspecified affecting right dominant side; R29.704 NIHSS score 4; Z86.73 Personal history of transient ischemic attack (TIA), and cerebral infarction without residual deficits; Z91.040 Latex allergy status
CPT/HCPCS: 92977; 93005; 85025; 80048; 36415; 83735; 84703; 85610; 82947; 80076; 85730; 84484; 70496; 70498; 70450; 71045; 96375; 96374; 99291; 99292; Q9967; J3101; J2765; J2405

== ENCOUNTER 2024-01-07 14:31 | Emergency (ER) | payer OTHER, SELFPAY ==
--- NOTE | 2024-01-07 15:34 | RAD REPORT ---
EXAM DESCRIPTION: US - Transvaginal Study Probe - 01/07/2024 3:14 pm CLINICAL HISTORY: ABD PAIN Pelvic pain. COMPARISON: <Comparisons> FINDINGS: The uterus is normal in size, shape and echotexture. The uterus measures 8.3 x 4.8 x 4.0 c m. The endometrial stripe measures 5 mm, normal. IUD is in place in the fundal endometrium. Nonvisualized left ovary due to bowel gas. The right ovary measures 2.7 x 2.7 x 2.3 cm. No adnexal m asses. Normal Doppler blood flow was demonstrated to the right ovary. No significant pelvic ascites. IMPRESSION: IUD is in expected location in the fundal endometrium. Right ovary is unremarkable with normal blood flow. Left ovary nonvisualized due to bowel gas.
[2024-01-07 16:08] LABS: Specific Gravity 1.021 (1.005-1.030); Sqamous Epithelial <5 /HPF (None Seen); Urine Bacteria <20 /HPF (<20); Urine Bilirubin NEGATIVE (Negative); Urine Blood 1+ (Negative); Urine Clarity Extremely Turbid (Clear); Urine Color Light-Yellow (Yellow); Urine Crystals Unidentified Few /HPF (None Seen); Urine Culture Reflex Order REFLEXED; Urine Glucose NEGATIVE (Negative); Urine Ketones NEGATIVE (Negative); Urine Microscopic Reflex YN ORDER UMIC; Urine Nitrite NEGATIVE (Negative); Urine Protein 1+ (Negative); Urine RBC 21-50 /HPF (None Seen); Urine Urobilinogen Normal (Normal); Urine WBC >50 /HPF (<5)
[2024-01-07 16:09] LABS: Specific Gravity 1.021 (1.005-1.030)
--- NOTE | 2024-01-07 16:15 | ER ---
Nurse's Notes [facility] Name: Vianney Anand Age: 23 yrs Sex: Female : 2000 Arrival Date: 01/07/2024 Time: 14:31 Bed IW1 Private MD: Diagnosis: UTI/ Urinary tract infection, site not specified Presentation: 01/06 15:04 Note CALLED PT FOR TRIAGE PT REPORTED NOT IN WAITING ROOM IS IN RADIOLOGY. db 15:41 Chief complaint: Patient states: VAGINAL BLEEDING AND ABD PAIN THAT STARTED SATURDAY. db STATES HAS IUD AND DOESN'T NORMALLY GET PERIODS. Coronavirus screen: Client denies travel out of the [place] in the last 14 days. At this time, the client does not indicate any symptoms associated with coronavirus-19. Ebola Screen: Patient negative for fever greater than or equal to 101.5 degrees Fahrenheit, and additional compatible Ebola Virus Disease symptoms Patient denies exposure to infectious person. Patient denies travel to an Ebola-affected area in the 21 days before illness onset. No symptoms or risks identified at this time. Initial Sepsis Screen: Does the patient meet any 2 criteria? No. Patient's initial sepsis screen is negative. Does the patient have a suspected source of infection? No. Patient's initial sepsis screen is negative. Risk Assessment: Do you want to hurt yourself or someone else? Patient reports no desire to harm self or others. Onset of symptoms was January 07, 2024. 15:41 Method Of Arrival: Ambulatory db 15:41 Acuity: CAMRYN 3 db Triage Assessment: 15:43 General: Appears in no apparent distress. comfortable, Behavior is calm, cooperative. db Pain: Complains of pain in abdomen and right lower quadrant. Neuro: Level of Consciousness is awake, alert, obeys commands, Oriented to person, place, time, situation. GI: Reports lower abdominal pain. 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 - Infectious Disease History:: Denies. - Social history:: Smoking status: Patient denies any tobacco usage or history of. Screenin:19 [facility] ED Fall Risk Assessment (Adult) History of falling in the last 3 months, db including since admission No falls in past 3 months (0 pts) Confusion or Disorientation No (0 pts) Intoxicated or Sedated No (0 pts) Impaired Gait No (0 pts) Mobility Assist Device Used No (0 pt) Altered Elimination No (0 pt) Score/Fall Risk Level 0 - 2 = Low Risk Oriented to surroundings, Maintained a safe environment. Abuse screen: Denies threats or abuse. Denies injuries from another. Nutritional screening: No deficits noted. Tuberculosis screening: No symptoms or risk factors identified. Assessment: 16:19 Reassessment: Patient appears in no apparent distress at this time. Patient and/or db family updated on plan of care and expected duration. Pain level reassessed. Patient is alert, oriented x 3, equal unlabored respirations, skin warm/dry/pink. SEE TRIAGE FOR INITIAL ASSESSMENT. Vital Signs: 15:41 BP 141 / 95; Pulse 70; Resp 16; Temp 98; Pulse Ox 99% ; Weight 127.01 kg; Height 5 ft. db 7 in. ; Pain 7/10; 15:41 Body Mass Index 43.85 (127.01 kg, 170.18 cm) db 15:41 Pain Scale: Adult db ED Course: 14:34 Patient arrived in ED. im 14:37 Diana Castro FNP-C is PHCP. kb 14:37 David Graff MD is Attending Physician. kb 15:16 US Transvaginal Study (Probe) In Process Unspecified. EDMS 15:35 Urine collected: clean catch specimen. db 15:43 Triage completed. db 15:43 Arm band placed on Patient placed in an exam room. db 16:19 Patient has correct armband on for positive identification. Bed in low position. Call db light in reach. Side rails up X 1. Provided Education on: DISCHARGE AND FOLLOWUP. 16:19 No provider procedures requiring assistance completed. Patient did not have IV access db during this emergency room visit. Administered Medications: No medications were administered Medication: 16:19 VIS not applicable for this client. db Outcome: 16:14 Discharge ordered by . kb 16:19 Discharged to home ambulatory, with family, db 16:19 Condition: stable 16:19 Discharge instructions given to patient, Instructed on discharge instructions, follow up and referral plans. Prescriptions given X 1, 16:20 Patient left the ED. db Signatures: Dispatcher [employer] Diana Vieira, JOSÉ DINERO-Purvi Liriano, RN RN Delia Andrews
--- NOTE | 2024-01-07 16:15 | EDPHYS ---
Physician Documentation [facility] Name: Vianney Anand Age: 23 yrs Sex: Female : 2000 Arrival Date: 01/07/2024 Time: 14:31 Bed IW1 Private MD: ED Physician David Graff HPI: 01/06 14:56 This 23 yrs old Female presents to ER via Unassigned with complaints of Abdominal Pain, kb Vaginal Bleeding. 14:56 Pt is a 23 year old female who presents for "right ovarian pain" that started yesterday kb with bloody discharge. States she normally gets pain like this on the left side, but this is the first time it has been on the right. Reports pain is worse after urinating. Denies fever. 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 - Infectious Disease History:: Denies. - Social history:: Smoking status: Patient denies any tobacco usage or history of. ROS: 14:57 Constitutional: As per HPI kb Exam: 14:57 Constitutional: This is a well developed, well nourished patient who is awake, alert, kb and in no acute distress. Head/Face: Normocephalic, atraumatic. ENT: Moist Mucous membranes Cardiovascular: Regular rate Respiratory: Respirations even and unlabored. No increased work of breathing. Talking in full sentences Skin: Warm, dry with normal turgor. Normal color. MS/ Extremity: Pulses equal, no cyanosis. Neurovascular intact. Full, normal range of motion. Neuro: Awake and alert, GCS 15, oriented to person, place, time, and situation. Moves all extremities. Normal gait. 14:57 Abdomen/GI: Inspection: obese Bowel sounds: normal, Palpation: soft, in all quadrants, mild abdominal tenderness, in the right lower quadrant, 14:57 Back: CVA tenderness, that is mild, is noted on the left, Vital Signs: 15:41 BP 141 / 95; Pulse 70; Resp 16; Temp 98; Pulse Ox 99% ; Weight 127.01 kg; Height 5 ft. db 7 in. ; Pain 7/10; 15:41 Body Mass Index 43.85 (127.01 kg, 170.18 cm) db 15:41 Pain Scale: Adult db MDM: 14:37 Patient medically screened. kb 14:57 Data reviewed: vital signs, nurses notes. kb 16:13 Differential diagnosis: non-specific abd pain, Ovarian Torsion, urinary tract kb infection, ovarian cyst. Test considered but Not performed: Labs: cbc, cmp considered but pt is nontoxic in appearance, afebrile and VSS. . Counseling: I had a detailed discussion with the patient and/or guardian regarding the historical points, exam findings, and any diagnostic results supporting the discharge/admit diagnosis, lab results, radiology results, the need for outpatient follow up, a family practitioner, to return to the emergency department if symptoms worsen or persist or if there are any questions or concerns that arise at home. 01/06 14:54 Order name: Test, Urine; Complete Time: 16:12 kb 01/06 14:54 Order name: Urinalysis w/ reflexes; Complete Time: 16:12 kb 01/06 16:12 Order name: Urine Culture EDOK 01/06 14:54 Order name: US Transvaginal Study (Probe); Complete Time: 15:35 kb Administered Medications: No medications were administered Disposition: 16:35 Co-signature as Attending Physician, David Graff MD I reviewed the patient's care rn provided by the Advanced Practice Provider and agree with the diagnosis and treatment plan. Disposition Summary: 01/07/24 16:14 Discharge Ordered Notes: Location: Home kb Condition: Stable kb Diagnosis - UTI/ Urinary tract infection, site not specified kb Followup: kb - With: Emergency Department - When: As needed - Reason: Worsening of condition Followup: kb - With: Private Physician - When: 2 - 3 days - Reason: Recheck today's complaints, Continuance of care, Re-evaluation by your physician Discharge Instructions: - Discharge Summary Sheet kb - Urinary Tract Infection, Adult, [id number] kb Forms: - Medication Reconciliation Form kb - Antibiotic Education kb - Prescription Opioid Use kb - Patient Portal Instructions kb - Leadership Thank You Letter kb - Work release form db Prescriptions: - Augmentin 875-125 mg Oral Tablet - take 1 tablet ORAL route every 12 hours for 10 days; 20 tablet; Refills: 0, kb Product Selection Permitted Signatures: Dispatcher [employer] EDMS Diana Castro, FRUIT PRESERVER-C FRUIT PRESERVER-Ckb David Graff MD MD rn Benton, Danielle, RN RN db Corrections: (The following items were deleted from the chart) 14: 14:55 Test, Urine+UC.LAB.BRZ ordered. EDMS EDMS 14: 14:55 Urinalysis+U.LAB.BRZ ordered. EDMS EDMS 14:55 14:55 Transvaginal Study (Probe)+US.RAD.BRZ ordered. EDMS EDMS
[2024-01-07 16:50] VITALS: BP 141/95; TEMP 98; O2SAT 99
== END 2024-01-07 16:20 | disposition home or self-care (01) ==
LOC: ER 14:31
DX: N39.0 Urinary tract infection, site not specified (principal)
CPT/HCPCS: 76830; 81001; 81025; 87077; 87086; 87088; 87186; 99283

== ENCOUNTER 2024-02-17 18:46 | Emergency (ER) | payer OTHER ==
[2024-02-17 19:39] LABS: Absolute Basophils 0.1 K/uL (0-0.5); Absolute Eosinophils 0.2 K/uL (0-0.5); Absolute Lymphocytes (CBC) 3.9 K/uL (0.7-4.9); Absolute Monocytes 0.7 K/uL (0.1-1.3); Basophils % 0.7 % (0-1.3); Eosinophils % 1.4 % (0-4.4); Hematocrit 42.7 % (36.0-45.0); Lymphocytes % 32.9 % (15.3-44.8); MCH 27.4 pg (27.0-35.0); MCHC 32.7 g/dL (32.0-36.0); MCV 83.7 fL (80-100); MPV 7.4 fL (7.6-11.3); Monocytes % 5.8 % (3.3-12.3); Neutrophils % 59.2 % (41.7-73.7); Platelets 294 thou/uL (152-406); Red Cell Distribution Width 14.5 % (12.1-15.2)
[2024-02-17] MEDS ORDERED: DIPHENHYDRAMINE 50 MG/ML VIAL ONE (19:41)
[2024-02-17] MEDS ORDERED: METOCLOPRAMIDE 10 MG/2mL INJ ONE (19:41)
[2024-02-17] MEDS ORDERED: KETOROLAC 30 MG/ML INJ ONE (19:41)
[2024-02-17] MEDS ORDERED: dexAMETHasone 10 MG/ML VIAL ONE (19:41)
[2024-02-17] MEDS ORDERED: NA CHLORIDE 0.9% 1,000 ML ONE (19:41)
[2024-02-17 19:56] LABS: Albumin 3.9 g/dL (3.4-5.0); Anion Gap 4.6 mEq/L (5.0-15.0); Bilirubin Total 1.1 mg/dL (0.2-1.0); Globulin 3.8 g/dL (2.3-3.5); Potassium 3.6 mEq/L (3.5-5.1); Protein, Total 7.7 g/dL (6.4-8.2)
--- NOTE | 2024-02-17 21:24 | RAD REPORT ---
EXAM: Head Brain Wo Cont HISTORY: HEADACHE COMPARISON: 10/10/2023 TECHNIQUE: Multiple contiguous axial images were obtained for a CT of the brain without contrast. Sag ittal and coronal reformats were performed. One or more of the following dose reduction techniques were used: Automated exposure control, adjus tment of the mA and kV according to patient size, and iterative reconstruction. Unless otherwise specified, incidental findings do not require dedicated imaging follow-up. FINDINGS: No evidence of hydrocephalus, intracranial hemorrhage, or extra-axial fluid collection. The brain is normal in morphology. The calvarium is intact. The visualized paranasal sinuses and mastoid air cells are essentially clear . IMPRESSION: No evidence of acute intracranial abnormality.
[2024-02-17] MEDS ORDERED: MORPHINE 4 MG/ML SYR ONE (21:26)
--- NOTE | 2024-02-17 22:25 | ER ---
Nurse's Notes [facility] Name: Vianney Anand Age: 23 yrs Sex: Female : 2000 Arrival Date: 02/17/2024 Time: 18:46 Bed 3 Private MD: Diagnosis: Headache Presentation: 02/16 18:59 Chief complaint: Patient states: headache started at 0300 on right side and down neck. tm6 Migraine all day, felt like I was going to pass out. Coronavirus screen: Vaccine status: Patient reports receiving the 2nd dose of the covid vaccine. Client denies travel out of the [place] in the last 14 days. Ebola Screen: Patient negative for fever greater than or equal to 101.5 degrees Fahrenheit, and additional compatible Ebola Virus Disease symptoms Patient denies exposure to infectious person. Patient denies travel to an Ebola-affected area in the 21 days before illness onset. No symptoms or risks identified at this time. Initial Sepsis Screen: Does the patient meet any 2 criteria? No. Patient's initial sepsis screen is negative. Does the patient have a suspected source of infection? No. Patient's initial sepsis screen is negative. Risk Assessment: Do you want to hurt yourself or someone else? Patient reports no desire to harm self or others. Onset of symptoms was February 17, 2024 at 03:00. 18:59 Method Of Arrival: Ambulatory tm6 18:59 Acuity: CAMRYN 3 tm6 Triage Assessment: 19:01 Headache History: The patient has had previous headaches. General: Appears in no tm6 apparent distress. uncomfortable, Behavior is calm, cooperative. Pain: Complains of pain in head Pain currently is 10 out of 10 on a pain scale. Pain began 0300 Also complains of feels like will pass out. EENT: No signs and/or symptoms were reported regarding the EENT system. Neuro: Level of Consciousness is awake, alert, obeys commands, Oriented to person, place, time, situation, Reports headache. Cardiovascular: Patient's skin is warm and dry. Respiratory: Airway is patent Respiratory effort is even, unlabored, Respiratory pattern is regular, symmetrical. GI: No signs and/or symptoms were reported involving the gastrointestinal system. Abdomen is round non-distended. : No signs and/or symptoms were reported regarding the genitourinary system. Derm: No signs and/or symptoms reported regarding the dermatologic system. Musculoskeletal: No signs and/or symptoms reported regarding the musculoskeletal system. 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 - Infectious Disease History:: Denies. - Social history:: Smoking status: Patient denies any tobacco usage or history of. Patient uses alcohol, occasionally. Screenin:42 [facility] ED Fall Risk Assessment (Adult) History of falling in the last 3 months, bm8 including since admission No falls in past 3 months (0 pts) Confusion or Disorientation No (0 pts) Intoxicated or Sedated No (0 pts) Impaired Gait No (0 pts) Mobility Assist Device Used No (0 pt) Altered Elimination No (0 pt) Score/Fall Risk Level 0 - 2 = Low Risk Oriented to surroundings, Maintained a safe environment, Educated pt \T\ family on fall prevention, incl call for assistance when getting out of bed, Assessed \T\ reinforced patient's understanding of fall precautions, Hourly rounding (assess needs \T\ fall precautionary measures) done, Used ambulatory aids as needed (educated on \T\ assisted with), Used gait belt as appropriate. Abuse screen: Denies threats or abuse. Nutritional screening: No deficits noted. Tuberculosis screening: No symptoms or risk factors identified. Assessment: 19:42 Reassessment: Patient appears in no apparent distress at this time. Patient and/or bm8 family updated on plan of care and expected duration. Pain level reassessed. Patient is alert, oriented x 3, equal unlabored respirations, skin warm/dry/pink. General: Appears in no apparent distress. comfortable, Behavior is calm, cooperative, appropriate for age. Pain: Complains of pain in head, neck Pain currently is 10 out of 10 on a pain scale. Neuro: No deficits noted. Level of Consciousness is awake, alert, obeys commands, Oriented to person, place, time, situation, Appropriate for age Mix Technician are equal bilaterally Moves all extremities. Full function Gait is steady, Speech is normal, Facial symmetry appears normal, Pupils are PERRLA, Reports headache in right parietal area, near syncope. Cardiovascular: Denies chest pain, Heart tones S1 S2 present Capillary refill < 3 seconds in bilateral fingers Patient's skin is warm and dry. Respiratory: Airway is patent Respiratory effort is even, unlabored, Respiratory pattern is regular, symmetrical, Breath sounds are clear bilaterally. Respiratory:. GI: No signs and/or symptoms were reported involving the gastrointestinal system. : No signs and/or symptoms were reported regarding the genitourinary system. EENT: No signs and/or symptoms were reported regarding the EENT system. Derm: No signs and/or symptoms reported regarding the dermatologic system. Musculoskeletal: Circulation, motion, and sensation intact. Capillary refill < 3 seconds, in bilateral fingers. Range of motion: intact in all extremities, Reports pain in neck since this morning. Pain is 10 out of 10 on a pain scale. 20:39 Reassessment: Patient appears in no apparent distress at this time. No changes from bm8 previously documented assessment. Patient and/or family updated on plan of care and expected duration. Pain level reassessed. Patient is alert, oriented x 3, equal unlabored respirations, skin warm/dry/pink. pt states there has been no change in pain level since medication. 22:33 Reassessment: Patient appears in no apparent distress at this time. Patient and/or bm8 family updated on plan of care and expected duration. Pain level reassessed. Patient is alert, oriented x 3, equal unlabored respirations, skin warm/dry/pink. Patient states feeling better. Patient states symptoms have improved. Pain: Pain currently is 4 out of 10 on a pain scale. Vital Signs: 18:59 BP 135 / 83; Pulse 89; Resp 20; Temp 97.3(TE); Pulse Ox 100% on R/A; Weight 127.01 kg; tm6 Height 5 ft. 7 in. ; Pain 10/10; 19:42 BP 125 / 68; Pulse 82; Resp 17; Temp 97.3; Pulse Ox 99% ; Pain 10/10; bm8 20:39 BP 114 / 73; Pulse 68; Resp 17; Temp 97.3; Pulse Ox 100% ; Pain 10/10; bm8 22:33 BP 100 / 46; Pulse 91; Resp 18; Temp 97.3; Pulse Ox 96% ; Pain 4/10; bm8 18:59 Body Mass Index 43.85 (127.01 kg, 170.18 cm) tm6 18:59 Pain Scale: Adult tm6 19:42 Pain Scale: Adult bm8 20:39 Pain Scale: Adult bm8 22:33 Pain Scale: Adult bm8 [place] Coma Score: 18:58 Eye Response: spontaneous(4). Motor Response: obeys commands(6). Verbal Response: kb oriented(5). Total: 15. 19:42 Eye Response: spontaneous(4). Motor Response: obeys commands(6). Verbal Response: bm8 oriented(5). Total: 15. 20:39 Eye Response: spontaneous(4). Motor Response: obeys commands(6). Verbal Response: bm8 oriented(5). Total: 15. 22:33 Eye Response: spontaneous(4). Motor Response: obeys commands(6). Verbal Response: bm8 oriented(5). Total: 15. ED Course: 18:48 Patient arrived in ED. mr 18:48 Diana Castro FNP-C is PHCP. kb 18:48 Bill Buitrago MD is Attending Physician. kb 19:00 Triage completed. tm6 19:01 Arm band placed on right wrist. tm6 19:21 EKG done, by ED staff, reviewed by Diana KUMAR. tm6 19:33 CMP Sent. ty 19:33 CBC with Diff Sent. ty 19:34 Initial lab(s) drawn, by fl, sent to lab. Inserted saline lock: 22 gauge in left ty antecubital area, using aseptic technique. Blood collected. Flushed with 10 mL NS. 19:42 Joni Jean Baptiste, RN is Primary Nurse. bm8 19:42 Patient has correct armband on for positive identification. Placed in gown. Bed in low bm8 position. Call light in reach. Side rails up X 1. Client placed on continuous cardiac and pulse oximetry monitoring. NIBP monitoring applied. threat monitoring analyst on. Pulse ox on. NIBP on. Door closed. Noise minimized. Visitors limited. Warm blanket given. Pillow given. Verbal reassurance given. Head of bed elevated. 19:42 No provider procedures requiring assistance completed. Patient maintains SpO2 bm8 saturation greater than 95% on room air. 19:53 PHCP role handed off by Diana Castro FNP-C sb4 19:53 Moon Dyer PA-C is PHCP. sb4 20:47 Head Brain Wo Cont CT In Process Unspecified. EDMS 22:25 Faisal Joshi MD is Referral Physician. sb4 22:33 Provided Education on: post er care. bm8 22:33 IV discontinued, intact, bleeding controlled, No redness/swelling at site. Pressure bm8 dressing applied. Administered Medications: 19:47 Drug: Ketorolac IVP 15 mg IVP once Route: IVP; Site: left antecubital; bm8 22:35 Follow up: Response: No adverse reaction bm8 19:47 Drug: Decadron - Dexamethasone IVP 10 mg IVP once Route: IVP; Site: left antecubital; bm8 22:35 Follow up: Response: No adverse reaction bm8 22:35 Follow up: Response: No adverse reaction bm8 19:47 Drug: diphenhydrAMINE IVP 12.5 mg IVP once Route: IVP; Site: left antecubital; bm8 22:35 Follow up: Response: No adverse reaction bm8 19:48 Drug: NS 0.9% IV 1000 ml IV at 1000 ml once; to be given as a bolus over 60 minutes bm8 Route: IV; Rate: 1000 ml; Site: left antecubital; 22:35 Follow up: Response: No adverse reaction; IV Status: Completed infusion; IV Intake: bm8 1000ml 19:48 Drug: metoCLOPramide IVP 10 mg IVP once; over 1 to 2 minutes Route: IVP; Site: left bm8 antecubital; 22:35 Follow up: Response: No adverse reaction bm8 21:31 Drug: morphine IVP or IV 4 mg IVP once over 4 mins Route: IVP; Infused Over: 4 mins; bm8 Site: left antecubital; 22:35 Follow up: Response: No adverse reaction bm8 Medication: 19:42 VIS not applicable for this client. bm8 Intake: 22:35 IV: 1000ml; Total: 1000ml. bm8 Outcome: 22:25 Discharge ordered by . sb4 22:33 Discharged to home ambulatory, bm8 22:33 Condition: stable 22:33 Discharge instructions given to patient, family, Instructed on discharge instructions, follow up and referral plans. no drinking with medication, no driving heavy equipment, medication usage, safety practices, Demonstrated understanding of instructions, follow-up care, medications, 22:36 Patient left the ED. bm8 Signatures: Dispatcher [employer] EDMS Diana Castro, METALIZING SUPERVISOR-C METALIZING SUPERVISOR-Leigh Saeed, Reg Reg mr Gomez Moon, PA-C PA-C sb4 Flash Mendes RN RN tm6 Young Archibald Brad RN RN bm8
--- NOTE | 2024-02-17 22:26 | EDPHYS ---
Physician Documentation [facility] Name: Vianney Anand Age: 23 yrs Sex: Female : 2000 Arrival Date: 02/17/2024 Time: 18:46 Bed 3 Private MD: ED Physician Bill Buitrago HPI: 02/16 18:59 This 23 yrs old Female presents to ER via Unassigned with complaints of Headache. kb 18:59 Pt is a 23 year old female who presents for migraine that started at 0300 this morning. kb States this migraine is similar to ones she had in the past. States when they are this bad she normally passes out and she felt like she was going to earlier today. States they checked her BP at work and it was on the high side. Denies weakness, vision abnormalities. . 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 - Infectious Disease History:: Denies. - Social history:: Smoking status: Patient denies any tobacco usage or history of. Patient uses alcohol, occasionally. ROS: 18:58 Constitutional: As per HPI kb Exam: 18:58 Constitutional: This is a well developed, well nourished patient who is awake, alert, kb and in no acute distress. Head/Face: Normocephalic, atraumatic. Eyes: Pupils equal round and reactive to light, extra-ocular motions intact. Lids and lashes normal. Conjunctiva and sclera are non-icteric and not injected. Cornea within normal limits. Periorbital areas with no swelling, redness, or edema. ENT: Moist Mucous membranes Cardiovascular: Regular rate Respiratory: Respirations even and unlabored. No increased work of breathing. Talking in full sentences Abdomen/GI: Soft, non-tender. No distention Skin: Warm, dry with normal turgor. Normal color. MS/ Extremity: Pulses equal, no cyanosis. Neurovascular intact. Full, normal range of motion. Neuro: Awake and alert, GCS 15, oriented to person, place, time, and situation. Moves all extremities. Normal gait. 19:20 ECG was reviewed by the Attending Physician. Vital Signs: 18:59 BP 135 / 83; Pulse 89; Resp 20; Temp 97.3(TE); Pulse Ox 100% on R/A; Weight 127.01 kg; tm6 Height 5 ft. 7 in. ; Pain 10/10; 19:42 BP 125 / 68; Pulse 82; Resp 17; Temp 97.3; Pulse Ox 99% ; Pain 10/10; bm8 20:39 BP 114 / 73; Pulse 68; Resp 17; Temp 97.3; Pulse Ox 100% ; Pain 10/10; bm8 22:33 BP 100 / 46; Pulse 91; Resp 18; Temp 97.3; Pulse Ox 96% ; Pain 4/10; bm8 18:59 Body Mass Index 43.85 (127.01 kg, 170.18 cm) tm6 18:59 Pain Scale: Adult tm6 19:42 Pain Scale: Adult bm8 20:39 Pain Scale: Adult bm8 22:33 Pain Scale: Adult bm8 [place] Coma Score: 18:58 Eye Response: spontaneous(4). Motor Response: obeys commands(6). Verbal Response: kb oriented(5). Total: 15. 19:42 Eye Response: spontaneous(4). Motor Response: obeys commands(6). Verbal Response: bm8 oriented(5). Total: 15. 20:39 Eye Response: spontaneous(4). Motor Response: obeys commands(6). Verbal Response: bm8 oriented(5). Total: 15. 22:33 Eye Response: spontaneous(4). Motor Response: obeys commands(6). Verbal Response: bm8 oriented(5). Total: 15. MDM: 18:48 Medical Screening Exam initiated kb 18:58 Data reviewed: vital signs, nurses notes. kb 19:54 Transition of care: After a detail discussion of the patient's case, care is kb transferred to Moon Dyer PA-C. 02/16 18:57 Order name: CBC with Diff; Complete Time: 19:45 kb 02/16 18:57 Order name: CMP; Complete Time: 19:56 kb 02/16 20:00 Order name: Head Brain Wo Cont CT; Complete Time: 21:25 sb4 02/16 18:57 Order name: IV Start; Complete Time: 19:33 kb 02/16 18:57 Order name: EKG - Nurse/Tech; Complete Time: 19:21 kb EC: Rate is 85 beats/min. Rhythm is regular. QRS [place] is Normal. DE interval is normal at kb 138 msec. QRS interval is normal at 98 msec. QT interval is normal at 461 msec. Administered Medications: 19:47 Drug: Ketorolac IVP 15 mg IVP once Route: IVP; Site: left antecubital; bm8 22:35 Follow up: Response: No adverse reaction bm8 19:47 Drug: Decadron - Dexamethasone IVP 10 mg IVP once Route: IVP; Site: left antecubital; bm8 22:35 Follow up: Response: No adverse reaction bm8 22:35 Follow up: Response: No adverse reaction bm8 19:47 Drug: diphenhydrAMINE IVP 12.5 mg IVP once Route: IVP; Site: left antecubital; bm8 22:35 Follow up: Response: No adverse reaction bm8 19:48 Drug: NS 0.9% IV 1000 ml IV at 1000 ml once; to be given as a bolus over 60 minutes bm8 Route: IV; Rate: 1000 ml; Site: left antecubital; 22:35 Follow up: Response: No adverse reaction; IV Status: Completed infusion; IV Intake: bm8 1000ml 19:48 Drug: metoCLOPramide IVP 10 mg IVP once; over 1 to 2 minutes Route: IVP; Site: left 8 antecubital; 22:35 Follow up: Response: No adverse reaction bm8 21:31 Drug: morphine IVP or IV 4 mg IVP once over 4 mins Route: IVP; Infused Over: 4 mins; bm8 Site: left antecubital; 22:35 Follow up: Response: No adverse reaction bm8 Disposition Summary: 02/17/24 22:25 Discharge Ordered Notes: Location: Home sb4 Problem: an acute exacerbation sb4 Symptoms: have improved sb4 Condition: Stable sb4 Diagnosis - Headache sb4 Followup: sb4 - With: Faisal Joshi MD - When: 2 - 3 days - Reason: Further diagnostic work-up, Recheck today's complaints, Re-evaluation by your physician Discharge Instructions: - Discharge Summary Sheet sb4 - General Headache Without Cause, [id number] sb4 Forms: - Work release form sb4 - Patient Portal Instructions sb4 - Leadership Thank You Letter sb4 Signatures: Dispatcher [employer] Diana Vieira, WAXER OPERATOR-C Moon Lambert, PAReyC PAReyC sb4 Flash Mendes, RN RN tm6 Joni Jean Baptiste RN RN bm8
[2024-02-18 03:33] VITALS: TEMP 97.3
[2024-02-18 03:39] VITALS: BP 100/46; O2SAT 96
== END 2024-02-17 22:36 | disposition home or self-care (01) ==
LOC: ER 18:46
DX: R51.9 Headache, unspecified (principal); Z86.73 Personal history of transient ischemic attack (TIA), and cerebral infarction without residual deficits
CPT/HCPCS: 93005; 85025; 36415; 80053; 70450; J2765; J1200; J1100; J7030

== ENCOUNTER 2024-03-24 21:18 | Emergency (ER) | payer OTHER ==
[2024-03-24] MEDS ORDERED: ONDANSETRON 4 MG/2 ML VIAL ONE (21:36)
[2024-03-24] MEDS ORDERED: NA CHLORIDE 0.9% 2,000 ML ONE (21:36)
[2024-03-24 21:51] LABS: PT Prothrombin Time 12.2 SECONDS (9.4-12.5); Protime INR 1.09
[2024-03-24 21:55] LABS: Absolute Basophils 0.1 K/uL (0-0.5); Absolute Eosinophils 0.2 K/uL (0-0.5); Absolute Lymphocytes (CBC) 3.4 K/uL (0.7-4.9); Absolute Monocytes 0.7 K/uL (0.1-1.3); Absolute Neutrophil 3.3 K/uL (1.8-8.0); Basophils % 0.9 % (0-1.3); Eosinophils % 3.1 % (0-4.4); Hemoglobin 14.3 g/dL (12.0-15.0); Lymphocytes % 44.2 % (15.3-44.8); MCH 27.5 pg (27.0-35.0); MCHC 33.2 g/dL (32.0-36.0); MCV 82.8 fL (80-100); MPV 7.3 fL (7.6-11.3); Monocytes % 9.4 % (3.3-12.3); Neutrophils % 42.4 % (41.7-73.7); Platelets 314 thou/uL (152-406); RBC Red Blood Cell Count 5.19 M/uL (3.86-4.86); Red Cell Distribution Width 14.1 % (12.1-15.2)
[2024-03-24 22:07] LABS: Albumin 3.8 g/dL (3.4-5.0); Anion Gap 10.5 mEq/L (5.0-15.0); Bilirubin Total 0.4 mg/dL (0.2-1.0); Potassium 3.5 mEq/L (3.5-5.1); Protein, Total 7.8 g/dL (6.4-8.2)
--- NOTE | 2024-03-24 22:35 | RAD REPORT ---
EXAMINATION: US Transvaginal OB CLINICAL INDICATION: Female 23 years old.[facility] MA[facility] eval for Bed Name: 3 TECHNIQUE: Real-time ultrasonography of the pelvis was performed transvaginally. Color and spectral D oppler evaluation of the ovaries was performed. COMPARISON: 03/23/2024. FINDINGS: UTERUS AND CERVIX: The uterus measures 7.3 cm in length. The uterus is normal. No masses seen The end ometrium is normal, 0.4 cm in thickness. No gestational sac is visualized. Small nabothian cyst is seen in the cervix. RIGHT OVARY: Normal The right ovary measures 3.1 x 1.9 x 2.1 cm. Normal color and spectral Doppler evaluation of the right ovary.. LEFT OVARY: Not visualized due to overshadowing bowel gas. FREE FLUID: No free fluid. IMPRESSION: No gestational sac is visualized. Correlation with continued serial beta hCG trending recommended. No nvisualization of the left ovary limits evaluation.
[2024-03-24] MEDS ORDERED: MORPHINE 4 MG/ML SYR ONE (23:11)
[2024-03-24] MEDS ORDERED: DICYCLOMINE HCL 10 MG CAP ONE (23:11)
--- NOTE | 2024-03-24 23:39 | ER ---
Nurse's Notes [facility] Name: Vianney Anand Age: 23 yrs Sex: Female : 2000 Arrival Date: 03/24/2024 Time: 21:18 Bed 3 Private MD: Diagnosis: Incomplete spontaneous without complication;Incomplete Miscarriage with hemorrhage, Syncope and Collapse Historical: - Allergies: 03/24 22: Latex; bm8 - Home Meds: : None [Active]; bm8 - PMHx: : Cerebrovascular accident; Seizure; bm8 - PSHx: : Adenoid excision; Tonsillectomy; knee; wisdom teeth; bm8 - Immunization history:: Adult Immunizations up to date. - Infectious Disease History:: Denies. - Family history:: not pertinent. - Social history:: Smoking status: Patient reports the use of cigarette tobacco products, Patient denies any tobacco usage or history of. Patient/guardian denies using alcohol, street drugs. Screenin:26 [facility] ED Fall Risk Assessment (Adult) History of falling in the last 3 months, bm8 including since admission No falls in past 3 months (0 pts) Confusion or Disorientation No (0 pts) Intoxicated or Sedated No (0 pts) Impaired Gait No (0 pts) Mobility Assist Device Used No (0 pt) Altered Elimination No (0 pt) Score/Fall Risk Level 0 - 2 = Low Risk Oriented to surroundings, Maintained a safe environment, Educated pt \T\ family on fall prevention, incl call for assistance when getting out of bed, Assessed \T\ reinforced patient's understanding of fall precautions, Hourly rounding (assess needs \T\ fall precautionary measures) done, Used ambulatory aids as needed (educated on \T\ assisted with), Used gait belt as appropriate. Abuse screen: Denies threats or abuse. Nutritional screening: No deficits noted. Tuberculosis screening: No symptoms or risk factors identified. Assessment: 21:25 Obstetrical Assessment: General assessment: awake and alert, skin warm and dry, bm8 respirations even and unlabored. General: Appears in no apparent distress. comfortable, Behavior is calm, cooperative, appropriate for age. Pain: Complains of pain in pelvis Pain currently is 5 out of 10 on a pain scale. Pain began suddenly. Neuro: No deficits noted. Level of Consciousness is awake, alert, obeys commands, Oriented to person, place, time, situation, Appropriate for age. Cardiovascular: Denies chest pain, Capillary refill < 3 seconds in bilateral fingers Patient's skin is warm and dry. Respiratory: Airway is patent Trachea midline Respiratory effort is even, unlabored, Respiratory pattern is regular, symmetrical. GI: No signs and/or symptoms were reported involving the gastrointestinal system. : Reports vaginal bleeding that is bright red, pt states she thinks she is 3-4 weeks Patient is sexually active. 22:34 Reassessment: Patient appears in no apparent distress at this time. Patient and/or bm8 family updated on plan of care and expected duration. Pain level reassessed. Patient is alert, oriented x 3, equal unlabored respirations, skin warm/dry/pink. 23:21 Reassessment: Patient appears in no apparent distress at this time. Patient and/or bm8 family updated on plan of care and expected duration. Pain level reassessed. Patient is alert, oriented x 3, equal unlabored respirations, skin warm/dry/pink. Patient states feeling better. Patient states symptoms have improved. Vital Signs: 21:21 BP 164 / 104; Pulse 107; Resp 19; Temp 98.7; Pulse Ox 100% on R/A; Weight 127.01 kg; rv1 Height 5 ft. 7 in. ; Pain 5/10; 22:34 BP 139 / 81; Pulse 87; Resp 17; Temp 98.7; Pulse Ox 100% ; Pain 5/10; bm8 23:21 BP 103 / 61; Pulse 89; Resp 18; Temp 98.7; Pulse Ox 100% ; Pain 2/10; bm8 21:21 Body Mass Index 43.85 (127.01 kg, 170.18 cm) rv1 21:21 Pain Scale: Adult rv1 22:34 Pain Scale: Adult bm8 23:21 Pain Scale: Adult bm8 [place] Coma Score: 21:26 Eye Response: spontaneous(4). Motor Response: obeys commands(6). Verbal Response: bm8 oriented(5). Total: 15. 22:34 Eye Response: spontaneous(4). Motor Response: obeys commands(6). Verbal Response: bm8 oriented(5). Total: 15. 23:21 Eye Response: spontaneous(4). Motor Response: obeys commands(6). Verbal Response: bm8 oriented(5). Total: 15. 03/25 21:53 Eye Response: spontaneous(4). Motor Response: obeys commands(6). Verbal Response: sp4 oriented(5). Total: 15. ED Course: 03/24 21:20 Patient arrived in ED. jj6 21:23 Melvin Mazariegos MD is Attending Physician. sp4 21:25 Joni Jean Baptiste RN is Primary Nurse. bm8 21:26 Patient has correct armband on for positive identification. Bed in low position. Call bm8 light in reach. Side rails up X 1. Adult w/ patient. Client placed on continuous cardiac and pulse oximetry monitoring. NIBP monitoring applied. Pulse ox on. NIBP on. Door closed. Noise minimized. Warm blanket given. Pillow given. Verbal reassurance given. Head of bed elevated. 21:26 No provider procedures requiring assistance completed. Initial lab(s) drawn, by wy, kassidy sent to lab. Inserted saline lock: 20 gauge in right antecubital area, using aseptic technique. Blood collected. Flushed with 10 mL NS. Patient maintains SpO2 saturation greater than 95% on room air. 22:06 Transvaginal OB In Process Unspecified. EDMS 03/25 00:04 intact, bleeding controlled, No redness/swelling at site. Pressure dressing applied. cp4 Administered Medications: 03/24 21:42 Drug: NS 0.9% IV 1000 ml IV at 1 bolus Per protocol; to be given as a bolus over 60 bm8 minutes Route: IV; Rate: 1 bolus; Site: right antecubital; 23:21 Follow up: Response: No adverse reaction; IV Status: Completed infusion; IV Intake: bm8 1000ml 21:42 Drug: NS 0.9% IV 1000 ml IV at 1 bolus Per protocol; to be given as a bolus over 60 bm8 minutes Route: IV; Rate: 1 bolus; Site: right antecubital; 23:21 Follow up: Response: No adverse reaction; IV Status: Completed infusion; IV Intake: bm8 1000ml 21:42 Drug: Ondansetron IVP 4 mg IVP once; over 2 minutes Route: IVP; Site: right antecubital;bm8 23:20 Follow up: Response: No adverse reaction bm8 23:20 Drug: morphine IVP or IV 4 mg IVP once over 4 mins Route: IVP; Infused Over: 4 mins; bm8 Site: right antecubital; 03/25 00:03 Follow up: Response: No adverse reaction; Pain is decreased cp4 03/24 23:20 Drug: Dicyclomine PO 20 mg PO once Route: PO; bm8 03/25 00:03 Follow up: Response: No adverse reaction; Pain is decreased cp4 Medication: 03/24 21:26 VIS not applicable for this client. bm8 Intake: 23:21 IV: 1000ml; Total: 1000ml. bm8 23:21 IV: 1000ml; Total: 2000ml. bm8 Outcome: 23:38 Discharge ordered by . sp4 03/25 00:04 Discharged to home ambulatory, cp4 Condition: stable Discharge instructions given to patient, Instructed on discharge instructions, follow up and referral plans. Demonstrated understanding of instructions, follow-up care, 00:05 Patient left the ED. cp4 Signatures: Dispatcher [employer] EDEmmy Smith Rebecca rvMelvin Matamoros MD MD sp4 Caity Salguero cp4 Joni Jean Baptiste, RN RN bm8
--- NOTE | 2024-03-24 23:39 | EDPHYS ---
Physician Documentation [facility] Name: Vianney Anand Age: 23 yrs Sex: Female : 2000 Arrival Date: 03/24/2024 Time: 21:18 Bed 3 Private MD: ED Physician Melvin Mazariegos HPI: 03/24 21:23 This 23 yrs old Female presents to ER via Unassigned with complaints of sp4 Vaginal Bleeding, + Preg <12wks. 03/25 21:53 23-year-old female with EGA 4 weeks 4 days presents with worsening bleeding associated sp4 with syncopal episode prior to arrival. Patient was here yesterday for vaginal bleeding with diagnosis of miscarriage. Patient is -0-1-1 . Historical: - Allergies: 03/24 21:26 Latex; bm8 - Home Meds: 21:26 None [Active]; bm8 - PMHx: 21:26 Cerebrovascular accident; Seizure; bm8 - PSHx: 21:26 Adenoid excision; Tonsillectomy; knee; wisdom teeth; bm8 - Immunization history:: Adult Immunizations up to date. - Infectious Disease History:: Denies. - Family history:: not pertinent. - Social history:: Smoking status: Patient reports the use of cigarette tobacco products, Patient denies any tobacco usage or history of. Patient/guardian denies using alcohol, street drugs. ROS: 03/25 21:53 Constitutional: Negative for fever, chills, and weight loss, positive vaginal bleeding, sp4 positive syncopal episode All other systems are negative, Exam: 21:53 Constitutional: This is a well developed, well nourished patient who is awake, alert, sp4 and in no acute distress. Head/Face: Normocephalic, atraumatic. Eyes: Pupils equal round and reactive to light, extra-ocular motions intact. Lids and lashes normal. Conjunctiva and sclera are not injected. Cornea within normal limits. Periorbital areas with no swelling, redness, or edema. ENT: Nares patent. No nasal discharge, no septal abnormalities noted. Tympanic membranes are normal and external auditory canals are clear. Oropharynx with no redness, swelling, or masses, exudates, or evidence of obstruction, uvula midline. Mucous membranes moist. Neck: Trachea midline, no thyromegaly or masses palpated, and no cervical lymphadenopathy. Supple, full range of motion without nuchal rigidity, or vertebral point tenderness. Chest/axilla: Normal chest wall appearance and motion. Nontender with no deformity. No lesions are appreciated. Cardiovascular: Regular rate and rhythm with a normal S1 and S2. No gallops, murmurs, or rubs. Normal PMI, no JVD. No pulse deficits. Respiratory: Lungs have equal breath sounds bilaterally, clear to auscultation and percussion. No rales, rhonchi or wheezes noted. No increased work of breathing, no retractions or nasal flaring. Abdomen/GI: Soft, with normal bowel sounds. No distension or tympany. No guarding or rebound. No evidence of tenderness throughout. Back: No spinal tenderness. No costovertebral tenderness. Pelvic Exam: Normal external genitalia. Speculum exam with blood clots in the cervical os small amount of blood in the vaginal vault no sign of active bleeding. 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 Normal color with no rashes, no lesions, and no evidence of cellulitis. MS/ Extremity: Pulses equal, no cyanosis. Neurovascular intact. Full, normal range of motion. Neuro: Awake and alert, GCS 15, oriented to person, place, time, and situation. Cranial nerves II-XII grossly intact. Motor strength 5/5 in all extremities. Sensory grossly intact. Psych: Awake, alert, with orientation to person, place and time. Behavior, mood, and affect are within normal limits Vital Signs: 03/24 21:21 BP 164 / 104; Pulse 107; Resp 19; Temp 98.7; Pulse Ox 100% on R/A; Weight 127.01 kg; rv1 Height 5 ft. 7 in. ; Pain 5/10; 22:34 BP 139 / 81; Pulse 87; Resp 17; Temp 98.7; Pulse Ox 100% ; Pain 5/10; bm8 23:21 BP 103 / 61; Pulse 89; Resp 18; Temp 98.7; Pulse Ox 100% ; Pain 2/10; bm8 21:21 Body Mass Index 43.85 (127.01 kg, 170.18 cm) rv1 21:21 Pain Scale: Adult rv1 22:34 Pain Scale: Adult bm8 23:21 Pain Scale: Adult bm8 Kathy Coma Score: 21:26 Eye Response: spontaneous(4). Motor Response: obeys commands(6). Verbal Response: bm8 oriented(5). Total: 15. 22:34 Eye Response: spontaneous(4). Motor Response: obeys commands(6). Verbal Response: bm8 oriented(5). Total: 15. 23:21 Eye Response: spontaneous(4). Motor Response: obeys commands(6). Verbal Response: bm8 oriented(5). Total: 15. 03/25 21:53 Eye Response: spontaneous(4). Motor Response: obeys commands(6). Verbal Response: sp4 oriented(5). Total: 15. MDM: 03/24 22:14 Medical Screening Exam initiated sp4 23:37 ED course: EXAMINATION: US Transvaginal OB CLINICAL INDICATION: Female 23 years sp4 old.[facility] eval for Bed Name: 3 TECHNIQUE: Real-time ultrasonography of the pelvis was performed transvaginally. Color and spectral Doppler evaluation of the ovaries was performed. COMPARISON: 03/23/2024. FINDINGS: UTERUS AND CERVIX: The uterus measures 7.3 cm in length. The uterus is normal. No masses seen The endometrium is normal, 0.4 cm in thickness. No gestational sac is visualized. Small nabothian cyst is seen in the cervix. RIGHT OVARY: Normal The right ovary measures 3.1 x 1.9 x 2.1 cm. Normal color and spectral Doppler evaluation of the right ovary.. LEFT OVARY: Not visualized due to overshadowing bowel gas. FREE FLUID: No free fluid. IMPRESSION: No gestational sac is visualized. Correlation with continued serial beta hCG trending recommended. Nonvisualization of the left ovary limits evaluation. . 03/25 21:53 Differential diagnosis: Sy ortega, STD, ectopic . Data reviewed: vital sp4 signs, nurses notes, lab test result(s), radiologic studies, ultrasound. Consideration of Admission/Observation Escalation of care including admission/observation considered. ED course: Patient presents with vaginal bleeding and syncopal episode. Pelvic exam reveals small amount of vaginal bleeding. Patient has no intrauterine visualization by ultrasound. Beta-hCG today 17 which is higher than yesterday beta-hCG yesterday was 8. Patient advised to have repeat beta-hCG with her SOLE LAYER in 48 hours. At this time stable for discharge home.. 03/24 21:25 Order name: Type And Screen; Complete Time: 22:48 sp4 03/24 21:25 Order name: CBC with Diff; Complete Time: 22:48 sp4 03/24 21:25 Order name: CMP; Complete Time: 22:48 sp4 03/24 21:25 Order name: Lipase; Complete Time: 22:48 sp4 03/24 21:25 Order name: HCG-Quantitative; Complete Time: 22:48 sp4 03/24 21:25 Order name: PT-INR; Complete Time: 22:48 sp4 03/24 21:38 Order name: Transvaginal OB; Complete Time: 22:48 EDMS 03/24 21:25 Order name: IV Saline Lock; Complete Time: 21:29 sp4 03/24 21:25 Order name: Labs collected and sent; Complete Time: 21:29 sp4 03/24 21:25 Order name: Pelvic Exam Setup; Complete Time: 21:44 sp4 Administered Medications: 03/24 21:42 Drug: NS 0.9% IV 1000 ml IV at 1 bolus Per protocol; to be given as a bolus over 60 bm8 minutes Route: IV; Rate: 1 bolus; Site: right antecubital; 23:21 Follow up: Response: No adverse reaction; IV Status: Completed infusion; IV Intake: bm8 1000ml 21:42 Drug: NS 0.9% IV 1000 ml IV at 1 bolus Per protocol; to be given as a bolus over 60 bm8 minutes Route: IV; Rate: 1 bolus; Site: right antecubital; 23:21 Follow up: Response: No adverse reaction; IV Status: Completed infusion; IV Intake: bm8 1000ml 21:42 Drug: Ondansetron IVP 4 mg IVP once; over 2 minutes Route: IVP; Site: right antecubital;bm8 23:20 Follow up: Response: No adverse reaction bm8 23:20 Drug: morphine IVP or IV 4 mg IVP once over 4 mins Route: IVP; Infused Over: 4 mins; bm8 Site: right antecubital; 03/25 00:03 Follow up: Response: No adverse reaction; Pain is decreased cp4 03/24 23:20 Drug: Dicyclomine PO 20 mg PO once Route: PO; bm8 03/25 00:03 Follow up: Response: No adverse reaction; Pain is decreased cp4 Disposition Summary: 03/24/24 23:38 Discharge Ordered Problem: new sp4 Symptoms: have improved sp4 Condition: Stable sp4 Diagnosis - Incomplete spontaneous without complication sp4 - Incomplete Miscarriage with hemorrhage, Syncope and Collapse sp4 Followup: sp4 - With: Private Physician - When: 2 - 3 days - Reason: Recheck today's complaints Discharge Instructions: - Discharge Summary Sheet sp4 - Incomplete Miscarriage sp4 Forms: - Work release form sp4 - Patient Portal Instructions sp4 Signatures: Dispatcher [employer] EDMelvin Hunt MD MD sp4 Joni Jean Baptiste RN RN bm8 Caity Salguero 4 Corrections: (The following items were deleted from the chart) 03/24 21:38 21:26 OB Limited+US.RAD.[email or web address] ordered. EDMS EDMS
[2024-03-25 00:16] VITALS: TEMP 98.7; O2SAT 100
[2024-03-25 00:22] VITALS: BP 103/61
== END 2024-03-25 00:05 | disposition home or self-care (01) ==
LOC: ER 21:18
DX: O03.4 Incomplete spontaneous abortion without complication (principal); Z72.0 Tobacco use
CPT/HCPCS: 96361; 85025; 36415; 86900; 86850; 85610; 86901; 84702; 83690; 80053; 76817; 96375; 96374; 99284; J2405; J7030